=== PATIENT | male | born 1975 | race Caucasian/White ===

== ENCOUNTER 2023-04-15 09:59 | Inpatient (IN) ==
[2023-04-15] MEDS ORDERED: SODIUM CHLORIDE 0.9% 500 ML IV STA (10:14)
[2023-04-15 10:39] LABS: Hematocrit (blood only) 39.3 % (42.0-52.0); Hemoglobin 13.5 g/dl (14.0-18.0); Mean Corpuscular Hemoglobin 27.8 pg (25.0-34.0); Mean Corpuscular Hgb Conc 34.4 g/dL (32.0-36.0); Mean Corpuscular Volume 80.9 fL (80.0-100.0); Mean Platelet Volume 10.1 fL (9.4-12.4); Platelet Count 263 K/uL (130-400); RDW Coefficient of Variation 13.2 % (11.5-14.5); RDW Standard Deviation 38.6 fL (36.4-46.3); Red Blood Count 4.86 M/uL (4.70-6.10); White Blood Count 4.66 K/ul (4.8-10.8)
[2023-04-15 10:52] LABS: INR 1.1 (0.9-1.1); Partial Thromboplastin Ratio 0.9; Partial Thromboplastin Time 24.2 Seconds (21.0-31.0); Prothrombin Time 11.5 Seconds (9.0-12.0)
[2023-04-15 10:57] LABS: Albumin Level 3.8 gm/dl (3.4-5.0); Bilirubin,Total 1.6 mg/dl (0.2-1.0); Magnesium 1.5 mg/dl (1.7-2.4); Potassium 3.6 mmol/L (3.5-5.1)
--- NOTE | 2023-04-15 10:59 | XRay Report ---
XR chest 1V not portable HISTORY: Sepsis COMPARISON: None. FINDINGS: The lungs are clear. Cardiac silhouette is normal in size. No pleural effusions. No pneumot horax. IMPRESSION: No acute process. ACT 112: Negative or not required by law. Electronically signed by: Lance Meier M.D. 04/15/2023 10:57 AM
[2023-04-15] MEDS ORDERED: MAGNESIUM SULFATE / D5W 1 GM/100 ML BAG IV STA (11:00)
[2023-04-15] MEDS ORDERED: SODIUM CHLORIDE 0.9% 1,000 ML IV ONE (11:00)
[2023-04-15 11:03] LABS: Albumin Globulin Ratio 1.4 (0.9-2); BUN Creatinine Ratio 17.1 (10-20); Creatinine Clr Calc Pharmacy 111.3 ml/min; Est GFR (African American) 119.5 ml/min; Est GFR (Non-African American) 103.1 ml/min; Globulin 2.8 gm/dl (2.5-4.0); Total Protein 6.6 gm/dl (6.0-8.3)
--- NOTE | 2023-04-15 11:08 | Emergency Department Note ---
Impression & Plan Acute ischemic colitis, Acute diverticulitis, Pulmonary emboli, Infarctions, pulmonary ED Provider Note HISTORY OF PRESENT ILLNESS: Patient is a 48-year-old male presenting with fevers, nausea and vomiting. He has been unable to tolerate anything by mouth for the last 3 days. He reports anytime he tries to eat or drink anything he immediately vomits. Denies any chest pain or shortness of breath. Reports fevers up to 102 at home. He had active rigors this morning. Denies any recent sick contact exposure. Denies any abdominal pain. Denies any history of abdominal surgeries. He reports he tried to take Tylenol earlier today for his fever but he immediately vomited. Denies any dysuria or hematuria. 2 weeks ago the patient had ankle surgery. ROS: as above PHYSICAL EXAM: Constitutional: Patient appears in no acute distress. HENT: Head: Normocephalic and atraumatic. Eyes: EOMI, PERRL Mouth/Throat: Mucous membranes moist. Neck: Trachea midline. Neck supple. Cardiovascular: Tachycardic with regular rhythm. No murmurs, rubs or gallops. Intact distal pulses. Pulmonary/Chest: No respiratory distress. Breath sounds clear and equal bilaterally. No wheezes or rales. Abdominal: Abdomen soft, no tenderness, rebound or guarding. Musculoskeletal: patient has a posterior short leg splint on the right lower extremity. Skin: Warm and dry. No rash, erythema, pallor or cyanosis Psychiatric: Appropriate mood and affect for situation. Neurological: Alert and keenly responsive. CN II-XII grossly intact, moving all extremities equally and fully. MDM: - Vitals signs showed tachycardia. - History obtained via patient. Patient presents with fevers, nausea and vomiting. Patient reports has been unable to tolerate oral intake for the last 72 hours. He reports anytime he tries to eat or drink anything it immediately comes up. He denies any chest pain or shortness of breath. Reports fevers up to 102 at home. Reports he had active rigors this morning. He reports he had ankle surgery 2 weeks ago - Chronic conditions affecting care: None - Differential diagnoses include, but are not limited to: diverticulitis; isch emic colitis; ureteral calculi; viral syndrome - Order placed for continuous cardiac monitoring. At this time, monitor showed rate of 100 bpm with normal sinus rhythm, per my interpretation. - External medical records reviewed. - EKG reviewed by myself showed normal sinus rhythm. Rate tachycardic at 157 bpm. QTc 530. No acute ischemic changes - Laboratory workup interpreted by myself showed slight leukopenia (WBC 4.66); slight hyponatremia (Na 134); elevated anion gap (14); hypomagnesemia (Mg 1.5); elevated total bilirubin (1.6); elevated procalcitonin (0.68); normal lactate - Negative lyme testing - UA negative for infection. - CXR negative for pneumonia, per my interpretation - COVID/flu/RSV negative - CT abdomen/pelvis with IV contrast showed thickened sigmoid colon with associated microperforation multiple inflamed diverticular. Also noted to have evidence of ischemic colitis of the sigmoid colon with portal venous gas identified. Also noted to have small PEs within the right lower lobe and peripheral wedge-shaped density is concerning for pulmonary infarcts on the left. - Blood cultures obtained per triage protocols. - Patient given 2L NS in ER. Given 1g IV magnesium for electrolyte replacement. - Given IV zosyn for antibiotic coverage. - Discussed case with general surgery on-call. They plan to evaluate the patient. Requested admission to medicine service. - Heparin drip ordered, given patient's profound clot burden (PEs and ischemic colitis). - Discussion was had with social work faculty member about patient's case and need for admission - Hospitalist consulted for admission - Patient admitted to [facility] service for further evaluation and management. I provided 42 minutes of critical care time to this patient's care outside of billable procedures. ASSESSMENT AND PLAN: Diagnosis: Ischemic colitis; pulmonary emboli; pulmonary infarct; intractable nausea and vomiting; acute diverticulitis Plan: admit Past Med/Surg History Medical History Deficient knowledge of leg surgery Family History Mother Breast cancer Grandmother (Maternal) Myocardial infarction Denies family history of Ovarian cancer Prostate cancer Colorectal cancer Social History Smoking Status: Never smoker Preferred Language: Bahamian Visual Impairment: No Limitations Hearing Ability: Normal Feels Safe at Home: Yes Allergies Allergies Allergy/AdvReac Type Severity Reaction Status Date / Time No Known Allergies Allergy Unverified 01/12/20 15:30 Home Meds Home Medications Medication Instructions Recorded Confirmed losartan 50 mg tablet 50 mg PO DAILY 01/12/20 04/15/23 simvastatin 40 mg tablet 40 mg PO DAILY 01/12/20 04/15/23 oxycodone-acetaminophen 5 mg-325 1 tab PO USEASDIRECTD PRN Pain 04/15/23 04/15/23 mg tablet Results & Data (ED) Vital Signs Vital Signs - 24 hr 04/15/23 09:59 04/15/23 11:12 04/15/23 11:47 Temperature 36.5 C Temperature Source Temporal Artery Scan Pulse Rate 155 H Pulse Rate [Left Apical] 114 H Respiratory Rate 16 25 H Respiratory Effort / Characteristics Respiratory Depth Respiratory Pattern Blood Pressure 95/62 L Blood Pressure [Right Arm] 117/69 Blood Pressure Mean 73 Blood Pressure Mean [Right Arm] 85 Pulse Oximetry 95 93 Oxygen Delivery Method Room Air Room Air Sepsis New/Unexplained Change in Mental Status N/A Sepsis Action Taken by Nursing Physician Notified 04/15/23 11:47 04/15/23 13:05 04/15/23 14:39 Temperature Temperature Source Pulse Rate Pulse Rate [Left Apical] 108 H 104 H Respiratory Rate 18 18 Respiratory Effort / Characteristics Non-Labored Non-Labored Respiratory Depth Normal Normal Respiratory Pattern Regular Blood Pressure Blood Pressure [Right Arm] 110/76 103/74 Blood Pressure Mean Blood Pressure Mean [Right Arm] 87 83 Pulse Oximetry 95 95 98 Oxygen Delivery Method Room Air Room Air Room Air Sepsis New/Unexplained Change in Mental Status Sepsis Action Taken by Nursing Laboratory Data 04/15/23 10:24 04/15/23 10:24 Lab Results 04/15/23 04/15/23 04/15/23 Range/Units 10:24 10:24 10:24 WBC 4.66 L (4.8-10.8) K/ul RBC 4.86 (4.70-6.10) M/uL Hgb 13.5 L (14.0-18.0) g/dl Hct 39.3 L (42.0-52.0) % MCV 80.9 (80.0-100.0) fL MCH 27.8 (25.0-34.0) pg MCHC 34.4 (32.0-36.0) g/dL RDW Std Deviation 38.6 (36.4-46.3) fL RDW Coeff of Angelo 13.2 (11.5-14.5) % Plt Count 263 (130-400) K/uL MPV 10.1 (9.4-12.4) fL Immature Gran % (Auto) 0.4 % Neut % (Auto) 93.2 % Lymph % (Auto) 5.6 % [place] % (Auto) 0.2 % Eos % (Auto) 0.2 % Baso % (Auto) 0.4 % Neut # (Auto) 4.34 (1.40-6.50) K/uL Lymph # (Auto) 0.26 L (1.20-3.40) K/uL [place] # (Auto) 0.01 L (0.11-0.59) K/uL Eos # (Auto) 0.01 (0.00-0.50) K/uL Baso # (Auto) 0.02 (0.00-0.20) K/uL Immature Gran # (Auto) 0.02 (0.01-0.20) K/uL RBC Morphology Unremarkable PT 11.5 (9.0-12.0) Seconds INR 1.1 (0.9-1.1) APTT 24.2 (21.0-31.0) Seconds PTT Ratio 0.9 Sodium (136-145) mmol/L Potassium (3.5-5.1) mmol/L Chloride (98-107) mmol/L Carbon Dioxide (21-32) mmol/L Anion Gap (3-11) BUN (6-23) mg/dl Creatinine (0.6-1.4) mg/dl Est Cr Clr Drug Dosing ml/min Est GFR ( Amer) ml/min Est GFR (Non-Af Amer) ml/min BUN/Creatinine Ratio (10-20) Glucose (70-99(Fasting)) mg/dl Lactate 1.5 (0.4-2.0) mmol/L Calcium (8.6-10.3) mg/dl Magnesium (1.7-2.4) mg/dl Total Bilirubin (0.2-1.0) mg/dl AST (13-39) U/L ALT (7-52) U/L Alkaline Phosphatase (34-104) U/L Troponin I High Sens (0-20) pg/ml Total Protein (6.0-8.3) gm/dl Albumin (3.4-5.0) gm/dl Globulin (2.5-4.0) gm/dl Albumin/Globulin Ratio (0.9-2) Procalcitonin (0-0.5) ng/ml Urine Color Urine Appearance (Clear) Urine pH (4.5-7.5) Ur Specific Page (1.000-1.030) Urine Protein (Negative) Urine Glucose (UA) (Negative) Urine Ketones (Negative) Urine Blood (Negative) Urine Nitrite (Negative) Urine Bilirubin (Negative) Urine Urobilinogen (Negative) Ur Leukocyte Esterase (Negative) Urine WBC (Auto) (0-5) /hpf Urine RBC (Auto) (0-4) /hpf U Hyaline Cast (Auto) (0-5) /lpf U Epithel Cells (Auto) (0-5) /lpf Urine Bacteria (Auto) (Negative) Anaplasma Smear See Comment Lyme Disease IgG Ab (Negative) Lyme Disease IgM Ab (Negative) SARS-CoV-2 (PCR) (Negative) Influenza Type A (PCR) (Neg) Influenza Type B (PCR) (Neg) RSV (RT-PCR) (Neg) 04/15/23 04/15/23 04/15/23 Range/Units 10:24 10:24 10:24 WBC (4.8-10.8) K/ul RBC (4.70-6.10) M/uL Hgb (14.0-18.0) g/dl Hct (42.0-52.0) % MCV (80.0-100.0) fL MCH (25.0-34.0) pg MCHC (32.0-36.0) g/dL RDW Std Deviation (36.4-46.3) fL RDW Coeff of Angelo (11.5-14.5) % Plt Count (130-400) K/uL MPV (9.4-12.4) fL Immature Gran % (Auto) % Neut % (Auto) % Lymph % (Auto) % [place] % (Auto) % Eos % (Auto) % Baso % (Auto) % Neut # (Auto) (1.40-6.50) K/uL Lymph # (Auto) (1.20-3.40) K/uL [place] # (Auto) (0.11-0.59) K/uL Eos # (Auto) (0.00-0.50) K/uL Baso # (Auto) (0.00-0.20) K/uL Immature Gran # (Auto) (0.01-0.20) K/uL RBC Morphology PT (9.0-12.0) Seconds INR (0.9-1.1) APTT (21.0-31.0) Seconds PTT Ratio Sodium 134 L (136-145) mmol/L Potassium 3.6 (3.5-5.1) mmol/L Chloride 100 (98-107) mmol/L Carbon Dioxide 20 L (21-32) mmol/L Anion Gap 14 H (3-11) BUN 14 (6-23) mg/dl Creatinine 0.82 (0.6-1.4) mg/dl Est Cr Clr Drug Dosing 111.3 ml/min Est GFR ( Amer) 119.5 ml/min Est GFR (Non-Af Amer) 103.1 ml/min BUN/Creatinine Ratio 17.1 (10-20) Glucose 142 H (70-99(Fasting)) mg/dl Lactate (0.4-2.0) mmol/L Calcium 9.0 (8.6-10.3) mg/dl Magnesium 1.5 L (1.7-2.4) mg/dl Total Bilirubin 1.6 H (0.2-1.0) mg/dl AST 16 (13-39) U/L ALT 29 (7-52) U/L Alkaline Phosphatase 67 (34-104) U/L Troponin I High Sens 3.3 (0-20) pg/ml Total Protein 6.6 (6.0-8.3) gm/dl Albumin 3.8 (3.4-5.0) gm/dl Globulin 2.8 (2.5-4.0) gm/dl Albumin/Globulin Ratio 1.4 (0.9-2) Procalcitonin 0.68 H (0-0.5) ng/ml Urine Color Urine Appearance (Clear) Urine pH (4.5-7.5) Ur Specific Page (1.000-1.030) Urine Protein (Negative) Urine Glucose (UA) (Negative) Urine Ketones (Negative) Urine Blood (Negative) Urine Nitrite (Negative) Urine Bilirubin (Negative) Urine Urobilinogen (Negative) Ur Leukocyte Esterase (Negative) Urine WBC (Auto) (0-5) /hpf Urine RBC (Auto) (0-4) /hpf U Hyaline Cast (Auto) (0-5) /lpf U Epithel Cells (Auto) (0-5) /lpf Urine Bacteria (Auto) (Negative) Anaplasma Smear Lyme Disease IgG Ab (Negative) Lyme Disease IgM Ab (Negative) SARS-CoV-2 (PCR) NEGATIVE (Negative) Influenza Type A (PCR) Negative (Neg) Influenza Type B (PCR) Negative (Neg) RSV (RT-PCR) Negative (Neg) 04/15/23 04/15/23 Range/Units 10:24 14:36 WBC (4.8-10.8) K/ul RBC (4.70-6.10) M/uL Hgb (14.0-18.0) g/dl Hct (42.0-52.0) % MCV (80.0-100.0) fL MCH (25.0-34.0) pg MCHC (32.0-36.0) g/dL RDW Std Deviation (36.4-46.3) fL RDW Coeff of Angelo (11.5-14.5) % Plt Count (130-400) K/uL MPV (9.4-12.4) fL Immature Gran % (Auto) % Neut % (Auto) % Lymph % (Auto) % [place] % (Auto) % Eos % (Auto) % Baso % (Auto) % Neut # (Auto) (1.40-6.50) K/uL Lymph # (Auto) (1.20-3.40) K/uL [place] # (Auto) (0.11-0.59) K/uL Eos # (Auto) (0.00-0.50) K/uL Baso # (Auto) (0.00-0.20) K/uL Immature Gran # (Auto) (0.01-0.20) K/uL RBC Morphology PT (9.0-12.0) Seconds INR (0.9-1.1) APTT (21.0-31.0) Seconds PTT Ratio Sodium (136-145) mmol/L Potassium (3.5-5.1) mmol/L Chloride (98-107) mmol/L Carbon Dioxide (21-32) mmol/L Anion Gap (3-11) BUN (6-23) mg/dl Creatinine (0.6-1.4) mg/dl Est Cr Clr Drug Dosing ml/min Est GFR ( Amer) ml/min Est GFR (Non-Af Amer) ml/min BUN/Creatinine Ratio (10-20) Glucose (70-99(Fasting)) mg/dl Lactate (0.4-2.0) mmol/L Calcium (8.6-10.3) mg/dl Magnesium (1.7-2.4) mg/dl Total Bilirubin (0.2-1.0) mg/dl AST (13-39) U/L ALT (7-52) U/L Alkaline Phosphatase (34-104) U/L Troponin I High Sens (0-20) pg/ml Total Protein (6.0-8.3) gm/dl Albumin (3.4-5.0) gm/dl Globulin (2.5-4.0) gm/dl Albumin/Globulin Ratio (0.9-2) Procalcitonin (0-0.5) ng/ml Urine Color [place] Urine Appearance Cloudy A (Clear) Urine pH 5.5 (4.5-7.5) Ur Specific Page 1.015 (1.000-1.030) Urine Protein Trace H (Negative) Urine Glucose (UA) Negative (Negative) Urine Ketones 3+ H (Negative) Urine Blood Negative (Negative) Urine Nitrite Negative (Negative) Urine Bilirubin 1+ H (Negative) Urine Urobilinogen Positive H (Negative) Ur Leukocyte Esterase Negative (Negative) Urine WBC (Auto) 1-5 (0-5) /hpf Urine RBC (Auto) 0-4 (0-4) /hpf U Hyaline Cast (Auto) 5-10 H (0-5) /lpf U Epithel Cells (Auto) 0-5 (0-5) /lpf Urine Bacteria (Auto) Negative (Negative) Anaplasma Smear Lyme Disease IgG Ab Negative (Negative) Lyme Disease IgM Ab Negative (Negative) SARS-CoV-2 (PCR) (Negative) Influenza Type A (PCR) (Neg) Influenza Type B (PCR) (Neg) RSV (RT-PCR) (Neg) Administered Medications Discontinued Medications Sodium Chloride (Nss) 500 mls @ 999 mls/hr IV .Q31M STA Stop: 04/15/23 10:44 Last Infusion: 04/15/23 11:19 Dose: 0 mls/hr Documented By: Admin: 04/15/23 10:23 Dose: 999 mls/hr Documented By: WILL Sodium Chloride (Nss 1000ml) 1,000 mls @ 999 mls/hr IV .Q1H1M ONE Stop: 04/15/23 12:00 Last Infusion: 04/15/23 12:30 Dose: 0 mls/hr Documented By: Admin: 04/15/23 11:13 Dose: 999 mls/hr Documented By: XI Magnesium Sulfate/Dextrose (Magnesium Sulfate / D5w) 1 gm in 100 mls @ 100 mls/hr IV NOW STA Stop: 04/15/23 11:59 Last Infusion: 04/15/23 12:30 Dose: 0 mls/hr Documented By: Admin: 04/15/23 11:13 Dose: 100 mls/hr Documented By: XI Ioversol (Optiray 320 100ml) 89 ml IV ONCE ONE Stop: 04/15/23 13:25 Last Admin: 04/15/23 13:25 Dose: 89 ml Documented By: MATT Imaging Data Radiologist's Impression: Chest X-Ray 04/15/23 10:14 XR chest 1V not portable HISTORY: Sepsis COMPARISON: None. FINDINGS: The lungs are clear. Cardiac silhouette is normal in size. No pleural effusions. No pneumothorax. IMPRESSION: No acute process. ACT 112: Negative or not required by law. Electronically signed by: Lance Meier M.D. 04/15/2023 10:57 AM Abdomen/Pelvis CT 04/15/23 11:[address] WITH IV CONTRAST CT DOSE: 1157.91 mGy.cm HISTORY: Persistent nausea and vomiting. TECHNIQUE: Multiaxial CT images of the abdomen and pelvis were performed following the use of intravenous contrast. A dose lowering technique was utilized adhering to the principles of ALARA. COMPARISON STUDY: None. FINDINGS: A few punctate calcified granuloma seen within the lung bases. Small filling defect within the subsegmental branch of the right lower lobe pulmonary artery on image 30. Therefore, this likely represents a small pulmonary embolus. There are 2 small focal wedge-shaped density seen within the periphery of the left lower lobe the largest on image 58 measuring 2 cm. These may represent pulmonary infarcts. Scattered punctate sclerotic foci within the pelvic bones favor bone islands. Otherwise, no suspicious lytic or blastic osseous lesions. Mild hepatic steatosis. The main portal vein is patent. However, a few of the distal portal veins within the right hepatic lobe are thrombosed. In addition, there are scattered foci of portal venous gas identified within the right hepatic dome. The spleen, pancreas, adrenal glands, kidneys are unremarkable. No hydronephrosis. Normal caliber abdominal aorta with mild calcified plaque. The bladder is unremarkable. The prostate gland is mildly enlarged. There is focal thickening within the mid sigmoid colon with multiple diverticula. There is a large inflamed diverticulum with evidence for extraluminal gas consistent with microperforation and pericolonic fat stranding. No loculated fluid collections at this time to suggest an abscess. There are few small scattered foci of gas at the distal inferior mesenteric vein adjacent to the inflamed diverticulum/sigmoid colon. In addition, there is heterogeneous enhancement within the majority of the inferior mesenteric vein consistent with areas of thrombus. Therefore, in conjunction with the portal venous gas, these findings are concerning for an underlying ischemic colitis of the sigmoid colon. No dilated loops of bowel to suggest an obstruction. Normal appendix. IMPRESSION: 1. There is thickening of the sigmoid colon with associated microperforation and multiple inflamed diverticula. This has the appearance of an acute sigmoid diverticulitis. However, there is partial thrombosis of the majority of the inferior mesenteric vein with associated scattered foci of gas at the distal inferior mesenteric vein as well as portal venous gas identified in the right hepatic dome. Therefore, these findings are consistent with an ischemic colitis of the sigmoid colon. 2. There are few thrombosed distal branches of the right portal vein. 3. There is a small pulmonary embolus within the right lower lobe. There are 2 small peripheral wedge-shaped densities within the periphery of the left lower lobe likely representing pulmonary infarcts. 4. Additional findings as described above. ACT 112: Negative or not required by law. Electronically signed by: Lance Meier M.D. 04/15/2023 2:44 PM Discharge Plan Visit Data Chief Complaint: Dehydration Stated Complaint: FEVER, DEHYDRATED ED Provider: Rosa Maria Tovar Discharge Problem: Acute ischemic colitis, Acute diverticulitis, Pulmonary emboli, Infarctions, pulmonary Forms Stand Alone Forms: My [facility] Prescriptions Prescriptions: No Action losartan 50 mg tablet 50 mg PO DAILY simvastatin 40 mg tablet 40 mg PO DAILY oxycodone-acetaminophen 5-325 mg tablet 1 tab PO USEASDIRECTD PRN (Reason: Pain) Rx Instructions: q4-6 hours Referrals Referrals: Gala Sorensen MD [Primary Care Provider] -
[2023-04-15 11:09] LABS: Troponin I High Sensitivity 3.3 pg/ml (0-20)
[2023-04-15 11:22] LABS: Influenza A virus by PCR Negative (Neg); Influenza B virus by PCR Negative (Neg); RSV by PCR Negative (Neg); SARS CoV2 RNA(COVID-19) Ceph NEGATIVE (Negative)
[2023-04-15 11:41] LABS: Basophils # (auto) 0.02 K/uL (0.00-0.20); Basophils % (auto) 0.4 %; Eosinophils # (auto) 0.01 K/uL (0.00-0.50); Eosinophils % (auto) 0.2 %; Immature Granulocytes # (auto) 0.02 K/uL (0.01-0.20); Immature Granulocytes % (auto) 0.4 %; Lymphocytes # (auto) 0.26 K/uL (1.20-3.40); Lymphocytes % (auto) 5.6 %; Monocytes # (auto) 0.01 K/uL (0.11-0.59); Monocytes % (auto) 0.2 %; Neutrophils # (auto) 4.34 K/uL (1.40-6.50); Neutrophils % (auto) 93.2 %; RBC Morphology Unremarkable
[2023-04-15] MEDS ORDERED: OPTIRAY 320 100ml IV ONE (13:24)
[2023-04-15 13:44] LABS: Lyme Ab IgG w/WB Rflx Negative (Negative); Lyme Ab IgM w/WB Rflx Negative (Negative)
[2023-04-15] MEDS ORDERED: CEFEPIME 2,000 MG/20 ML VIAL IV STA (14:43)
--- NOTE | 2023-04-15 14:46 | CT Scan Report ---
ABDOMEN AND PELVIS CT WITH IV CONTRAST CT DOSE: 1157.91 mGy.cm HISTORY: Persistent nausea and vomiting. TECHNIQUE: Multiaxial CT images of the abdomen and pelvis were performed following the use of intrave nous contrast. A dose lowering technique was utilized adhering to the principles of ALARA. COMPARISON STUDY: None. FINDINGS: A few punctate calcified granuloma seen within the lung bases. Small filling defect within the subsegmental branch of the right lower lobe pulmonary artery on image 30. Therefore, this likely represents a small pulmonary embolus. There are 2 small focal wedge-shaped density seen within the pe riphery of the left lower lobe the largest on image 58 measuring 2 cm. These may represent pulmonary infarcts. Scattered punctate sclerotic foci within the pelvic bones favor bone islands. Otherwise, no suspicious lytic or blastic osseous lesions. Mild hepatic steatosis. The main portal vein is patent. However, a few of the distal portal veins within the right hepatic lobe are thrombosed. In addition, there are scattered foci of portal venous gas identified within the right hepatic dome. The spleen, pancreas, adrenal glands, kidneys are unremarkable. No hydronephrosis. Normal caliber abdominal aorta with mild calcified plaque. The bladder is unremarkable. The prostate gland is mildly enlarged. Ther e is focal thickening within the mid sigmoid colon with multiple diverticula. There is a large inflam ed diverticulum with evidence for extraluminal gas consistent with microperforation and pericolonic f at stranding. No loculated fluid collections at this time to suggest an abscess. There are few small scattered foci of gas at the distal inferior mesenteric vein adjacent to the inflamed diverticulum/si gmoid colon. In addition, there is heterogeneous enhancement within the majority of the inferior mese nteric vein consistent with areas of thrombus. Therefore, in conjunction with the portal venous gas, these findings are concerning for an underlying ischemic colitis of the sigmoid colon. No dilated loo ps of bowel to suggest an obstruction. Normal appendix. IMPRESSION: 1. There is thickening of the sigmoid colon with associated microperforation and multiple inflamed di verticula. This has the appearance of an acute sigmoid diverticulitis. However, there is partial thro mbosis of the majority of the inferior mesenteric vein with associated scattered foci of gas at the d istal inferior mesenteric vein as well as portal venous gas identified in the right hepatic dome. The refore, these findings are consistent with an ischemic colitis of the sigmoid colon. 2. There are few thrombosed distal branches of the right portal vein. 3. There is a small pulmonary embolus within the right lower lobe. There are 2 small peripheral wedge -shaped densities within the periphery of the left lower lobe likely representing pulmonary infarcts. 4. Additional findings as described above. ACT 112: Negative or not required by law. Electronically signed by: Lance Meier M.D. 04/15/2023 2:44 PM
[2023-04-15 14:47] LABS: Appearance Urine Cloudy (Clear); Bacteria Urine Automated Negative (Negative); Blood Urine Negative (Negative); Color Urine Orange; Epithelial Cell Urine Auto 0-5 /lpf (0-5); Glucose Urine UA Negative (Negative); Ketones Urine 3+ (Negative); Leukocyte Esterase Urine Negative (Negative); Nitrite Urine Negative (Negative); Protein Urine Trace (Negative); RBC Urine Automated 0-4 /hpf (0-4); Specific Gravity Urine 1.015 (1.000-1.030); Urobilinogen Urine Positive (Negative); pH Urine 5.5 (4.5-7.5)
[2023-04-15] MEDS ORDERED: PIPERACILLIN/TAZOBACTAM 4.5 GM/120 ML BAG IV ONE (14:50)
[2023-04-15 14:53] LABS: Bilirubin Urine 1+ (Negative)
[2023-04-15] MEDS ORDERED: Heparin IV Adult Wt-Based Standard *NO* Bolus Protocol IV ONE (15:11)
--- NOTE | 2023-04-15 15:19 | History & Physical Report ---
Date of Service April 15, 2023 Assessment & Plan (1) Acute diverticulitis: Plan: Diverticulitis, Ischemic Colitis, Mesenteric Vein Thrombosis/Portal Vein Thrombosis - Clinically patient is with minimal/no pain, abdomen is soft, and no guarding/rebound. - CT-A/P: 1. There is thickening of the sigmoid colon with associated microperforation and multiple inflamed diverticula. This has the appearance of an acute sigmoid diverticulitis. However, there is partial thrombosis of the majority of the inferior mesenteric vein with associated scattered foci of gas at the distal inferior mesenteric vein as well as portal venous gas identified in the right hepatic dome. Therefore, these findings are consistent with an ischemic colitis of the sigmoid colon. 2. There are few thrombosed distal branches of the right portal vein. 3. There is a small pulmonary embolus within the right lower lobe. There are 2 small peripheral wedge-shaped densities within the periphery of the left lower lobe likely representing pulmonary infarcts. 4. Additional findings as described above. - Lactate normal - No abdominal tenderness, no rebound guarding -Heparin GTT Likely provoked VTE in the setting of recent surgery. He denies prior history of VTE, no family history of blood clots. Does have a family history of diverticulosis/diverticulitis requiring colostomy, but no complications with blood clots. He uses chew tobacco. Has had increased A-CYS as he has been resting more since his right ankle surgery. We will treat as provoked VTE, however extent of clot is larger than expected. Recommend completion with hypercoagulability panel. If antiphospholipid antibodies are present can target conversion to warfarin, otherwise is a good DOAC candidate and would target Eliquis -3 to 6 months of anticoagulation, additional depending on clinical course and results of above testing Patient will need a colonoscopy 4 to 6 weeks after recovered from diverticulitis. Do not recommend in the setting of diverticulitis due to perforation risk. No family history of colorectal cancer, occult malignancy potential could be dear for hypercoagulability IVF at 125 cc/h Continue Zosyn PE - Anticoagulation as above No hypoxia No signs of hemodynamic instability Hypertension Normotensive on admission, losartan temporarily held while n.p.o. Hyperlipidemia With statin held while n.p.o. DVT prophylaxis: Anticoagulated Disposition: Medical telemetry, downgrade if stable for 24 hours CODE STATUS: Full code Diet: N.p.o., Plasma-Lyte 125 cc/h (2) Acute ischemic colitis: (3) Hypertension: (4) Closed trimalleolar fracture of ankle: History of Present Illness Primary Care Provider: Gala Sorensen MD Jose Alejandro Ibarra is a 48-year-old male with a past medical history of hypertension and hyperlipidemia presented with fevers, nausea, and vomiting and no p.o. intake for 72 hours. Fevers of 102 with rigors at home. Has not been able to keep down cuty-[id number] medications due to vomiting. Had surgery 2 weeks ago, had R ankle and foot screws place. Has been sitting at home for 2 weeks offloading after surgery No anticoagulation prior to today Fevers, chills, sweats last 2 days Since surgery has not been eating much. ~3 days of nausea/vomiting. Tylenol could not keep down. Pain meds could not keep down. Last night when throwing up, emesis was yellow liquid and bile. This morning oneal-kyra and dark green Nauseus and maybe a little pain before throwing up, but denies pain Went to the bathroom this morning. Had a BM but then got nauseus afterwards and vomited. No blood in BM. Has been takin ga stool softener due to being on pain medications History of colostomy in brother/father due to diverticulitis. No FHx of colorectal cancer. Medical History: Reviewed Medications: Reviewed. Has not taken losartan or simvastatin due to nausea/vomiting. Surgical History: Reviewed Family history: Reviewed Allergies: Reviewed Social History: Chew use 1 can/pouch per day. No cigarette use. Denies regular ETOH use. No recreational drug use. Code Status: Full Code Allergies Allergy/AdvReac Type Severity Reaction Status Date / Time No Known Allergies Allergy Unverified 01/12/20 15:30 Home Medications Medication Instructions Recorded Confirmed Type losartan 50 mg tablet 50 mg PO DAILY 01/12/20 04/15/23 History simvastatin 40 mg tablet 40 mg PO DAILY 01/12/20 04/15/23 History oxycodone-acetaminophen 5 mg-325 1 tab PO USEASDIRECTD PRN Pain 04/15/23 04/15/23 History mg tablet Past Med/Surg History Medical History Deficient knowledge of leg surgery Family History Mother Breast cancer Grandmother (Maternal) Myocardial infarction Denies family history of Ovarian cancer Prostate cancer Colorectal cancer Social History Smoking Status: Never smoker Preferred Language: Algerian Visual Impairment: No Limitations Hearing Ability: Normal Feels Safe at Home: Yes Physical Exam Physical Exam: General: A&Ox3. NAD. Cooperative. HEENT: Atraumatic, normocephalic. Vision/hearing intact Pulm: CTAB A&P. -wheezes, -rales, -rhonchi. Symmetrical chest rise. No increased work of breathing. No respiratory distress. Cardiac: RRR, -mrg. Radial pulses intact and symmetrical. Abdominal: Minimal tenderness, without rebound, nondistended, soft. BS present. Extremities: Right lower extremity in short leg splint, no proximal right lower extremity tenderness or calf tenderness. Results & Data Results & Data Vital Signs (Past 12 Hours) Vital Signs Temp Pulse Pulse Resp BP BP Pulse Ox 04/15/23 14:39 104 H 18 103/74 98 04/15/23 13:05 108 H 18 110/76 95 04/15/23 11:47 95 04/15/23 11:47 04/15/23 11:12 114 H 25 H 117/69 93 04/15/23 09:59 36.5 C 155 H 16 95/62 L 95 O2 Del Method 04/15/23 14:39 Room Air 04/15/23 13:05 Room Air 04/15/23 11:47 Room Air 04/15/23 11:47 Room Air 04/15/23 11:12 Room Air 04/15/23 09:59 PG Care Time/CCT Total # of Minutes Spent Total Time Spent with Patient: Total time spent is greater than 50% in coordination of care (as documented) at patient's floor/unit and/or counseling patient: Coding Level of Care Code 12772 INT INP/OBS CARE 75MIN Diagnoses Acute diverticulitis K57.92 Acute ischemic colitis K55.039 Hypertension I10 Closed trimalleolar fracture of ankle S82.853A
[2023-04-15] MEDS ORDERED: Heparin IV Adult Wt-Based Standard WITH Bolus Protocol IV STA (16:11)
[2023-04-15] MEDS ORDERED: HEPARIN SOD (PORCINE) 1000 UNIT/ML IV STA (16:17)
--- NOTE | 2023-04-15 16:44 | Surgery Consultation ---
I have seen and examined and seen this patient with the surgical PA. I agree with the plan Date of Consultation April 15, 2023 Assessment & Plan (1) Acute diverticulitis: This is a 48yM with a PMH of HTN, recent repair of R ankle fracture 2 weeks ago, who presents to the [facility] ED on 04/15/23 with complaints of nausea/vomiting over the last couple of days that worsened today. Due to concern for dehydration he presented to the ER. A CT a/p was obtained that revealed thickening of the sigmoid colon with associated microperforation and multiple inflamed diverticula. This has the appearance of an acute sigmoid diverticulitis. However, there is partial thrombosis of the majority of the inferior mesenteric vein with associated scattered foci of gas at the distal inferior mesenteric vein as well as portal venous gas identified in the right hepatic dome, which are consistent with an ischemic colitis of the sigmoid colon. He also has some thrombosed distal branches of the right portal vein and PE in the RLL of the lung. Labs reveal WBC 4.6, Hbg 13.5, K 3.6, Lactate 1.5, Cr. 0.8. Vitals show patient is tachycardic into the 100s. He is saturating well on room air. On exam patient appears comfortable- abdomen is soft, non distended, with possible mild LLQ discomfort to deep palpation. Given essentially benign abdomen would agree with hospitalization and a course of conservative measures. Would hydrate with IVF, keep NPO for bowel rest, and start IV abx for possible diverticular infection. In addition the hospitalists will start patient on a heparin gtt given findings of PE's and thrombus in the IMV and portal vein. We will follow along closely, but no indication for acute surgical intervention. (2) Acute ischemic colitis: (3) Pulmonary emboli: History of Present Illness History of Present Illness This is a 48yM with a PMH of HTN, recent repair of R ankle fracture 2 weeks ago, who presents to the [facility] ED on 04/15/23 with complaints of nausea/vomiting. Per patient he had a fever 2 saturday's ago (after ankle surgery) that resolved. Since then he has had low appetite, but able to eat until yesterday he developed nausea/vomiting that lasted all day. He was unable to keep anything down including his pills. Due to concern for dehydration he presented to the ER. A CT a/p was obtained that revealed thickening of the sigmoid colon with associated microperforation and multiple inflamed diverticula. This has the appearance of an acute sigmoid diverticulitis. However, there is partial thrombosis of the majority of the inferior mesenteric vein with associated scattered foci of gas at the distal inferior mesenteric vein as well as portal venous gas identified in the right hepatic dome, which are consistent with an ischemic colitis of the sigmoid colon. He also has some thrombosed distal branches of the right portal vein and PE in the RLL of the lung. The patient denies any abdominal pain [id number]. He had a BM this AM that was normal and non bloody. He denies f/c, chest pains, shortness of breath, diarrhea. No family history of blood clots. Says his father and brother both had issues with diverticulitis requiring colostomy. He never had a colonoscopy. Also denies any personal or family history of blood clots. Allergies Allergy/AdvReac Type Severity Reaction Status Date / Time No Known Allergies Allergy Unverified 01/12/20 15:30 Home Medications Medication Instructions Recorded Confirmed Type losartan 50 mg tablet 50 mg PO DAILY 01/12/20 04/15/23 History simvastatin 40 mg tablet 40 mg PO DAILY 01/12/20 04/15/23 History oxycodone-acetaminophen 5 mg-325 1 tab PO USEASDIRECTD PRN Pain 04/15/23 04/15/23 History mg tablet Patient History Medical History Deficient knowledge of leg surgery Family History Mother Breast cancer Grandmother (Maternal) Myocardial infarction Denies family history of Ovarian cancer Prostate cancer Colorectal cancer Social History Smoking Status: Never smoker Preferred Language: Turkmen Visual Impairment: No Limitations Hearing Ability: Normal Feels Safe at Home: Yes Review of Systems Constitutional: + anorexia; no fever and no chills Respiratory: no dyspnea Cardiovascular: no chest pain Gastrointestinal: + nausea and + vomiting; no abdominal pain, no bloating, no change in bowel habits and no blood in stools Physical Exam Physical Exam: awake/alert, no distress Respiratory: normal respiratory effort saturating well on room air Cardiovascular: Rate/Rhythm: + tachycardic Gastrointestinal (Abdomen): Inspection/Auscultation: abdomen not distended Percussion/Palpation: + abdomen tender (very mild LLQ discomfort ) and abdomen soft Musculoskeletal: R lower leg in arturo bandage/splint Results & Data Vital Signs (Past 12 Hours) Vital Signs Temp Pulse Pulse Resp BP BP Pulse Ox 04/15/23 15:53 108 H 24 119/72 94 04/15/23 14:39 104 H 18 103/74 98 04/15/23 13:05 108 H 18 110/76 95 04/15/23 11:47 95 04/15/23 11:47 04/15/23 11:12 114 H 25 H 117/69 93 04/15/23 09:59 36.5 C 155 H 16 95/62 L 95 O2 Del Method 04/15/23 15:53 Room Air 04/15/23 14:39 Room Air 04/15/23 13:05 Room Air 04/15/23 11:47 Room Air 04/15/23 11:47 Room Air 04/15/23 11:12 Room Air 04/15/23 09:59 Diagnostic Findings ABDOMEN AND PELVIS CT WITH IV CONTRAST CT DOSE: 1157.91 mGy.cm HISTORY: Persistent nausea and vomiting. TECHNIQUE: Multiaxial CT images of the abdomen and pelvis were performed following the use of intravenous contrast. A dose lowering technique was utilized adhering to the principles of ALARA. COMPARISON STUDY: None. FINDINGS: A few punctate calcified granuloma seen within the lung bases. Small filling defect within the subsegmental branch of the right lower lobe pulmonary artery on image 30. Therefore, this likely represents a small pulmonary embolus. There are 2 small focal wedge-shaped density seen within the periphery of the left lower lobe the largest on image 58 measuring 2 cm. These may represent pulmonary infarcts. Scattered punctate sclerotic foci within the pelvic bones favor bone islands. Otherwise, no suspicious lytic or blastic osseous lesions. Mild hepatic steatosis. The main portal vein is patent. However, a few of the distal portal veins within the right hepatic lobe are thrombosed. In addition, there are scattered foci of portal venous gas identified within the right hepatic dome. The spleen, pancreas, adrenal glands, kidneys are unremarkable. No hydronephrosis. Normal caliber abdominal aorta with mild calcified plaque. The bladder is unremarkable. The prostate gland is mildly enlarged. There is focal thickening within the mid sigmoid colon with multiple diverticula. There is a large inflamed diverticulum with evidence for extraluminal gas consistent with microperforation and pericolonic fat stranding. No loculated fluid collections at this time to suggest an abscess. There are few small scattered foci of gas at the distal inferior mesenteric vein adjacent to the inflamed diverticulum/sigmoid colon. In addition, there is heterogeneous enhancement within the majority of the inferior mesenteric vein consistent with areas of thrombus. Therefore, in conjunction with the portal venous gas, these findings are concerning for an underlying ischemic colitis of the sigmoid colon. No dilated loops of bowel to suggest an obstruction. Normal appendix. IMPRESSION: 1. There is thickening of the sigmoid colon with associated microperforation and multiple inflamed diverticula. This has the appearance of an acute sigmoid diverticulitis. However, there is partial thrombosis of the majority of the inferior mesenteric vein with associated scattered foci of gas at the distal inferior mesenteric vein as well as portal venous gas identified in the right hepatic dome. Therefore, these findings are consistent with an ischemic colitis of the sigmoid colon. 2. There are few thrombosed distal branches of the right portal vein. 3. There is a small pulmonary embolus within the right lower lobe. There are 2 small peripheral wedge-shaped densities within the periphery of the left lower lobe likely representing pulmonary infarcts. 4. Additional findings as described above. ACT 112: Negative or not required by law. Electronically signed by: Lance Meier M.D. 04/15/2023 2:44 PM PG Care Time/CCT Total # of Minutes Spent Total Time Spent with Patient: Total time spent is greater than 50% in coordination of care (as documented) at patient's floor/unit and/or counseling patient: Coding Level of Care Code 00628 OFFICE CONSULT LVL Diagnoses Acute diverticulitis K57.92 Acute ischemic colitis K55.039 Pulmonary emboli I26.99
[2023-04-15] MEDS: HEPARIN SODIUM/DEXTROSE 25,000 UNITS/500 ML BAG IV SCH (16:54)
[2023-04-15] MEDS: PLASMA-LYTE A 1,000 ML IV SCH (17:51)
[2023-04-15] MEDS: ONDANSETRON INJ 2 MG/ML 2 ML VIAL IV PRN (21:43)
[2023-04-15] MEDS: ACETAMINOPHEN 325 MG TAB PO PRN (21:58)
[2023-04-15 23:56] LABS: Partial Thromboplastin Ratio 1.4
[2023-04-16 01:43] LABS: A calco-baum cmplx NotReported Not Detected (NotDetected); Bact fragilis Not Reported Not Detected (NotDetected); C auris Not Reported Not Detected (NotDetected); CTX-M Resistant Gene Not Detected (NotDetected); Calbicans Not Reported Not Detected (NotDetected); Candida glabrata Not Reported Not Detected (NotDetected); Candida krusei Not Reported Not Detected (NotDetected); Cneoformans/gatti Not Reported Not Detected (NotDetected); Cparapsilosis Not Reported Not Detected (NotDetected); Ctropicalis Not Reported Not Detected (NotDetected); E cloacae compx Not Reported Not Detected (NotDetected); Efaecalis Not Reported Not Detected (NotDetected); Efaecium Not Reported Not Detected (NotDetected); Enterobacterales DETECTED (NotDetected); Enterobacterales Not Reported DETECTED (NotDetected); Escherichia coli Not Reported DETECTED (NotDetected); H influenzae Not Reported Not Detected (NotDetected); IMP Resistant Gene Not Detected (NotDetected); K aerogenes Not Reported Not Detected (NotDetected); KPC Resistant Gene Not Detected (NotDetected); Koxytoca Not Reported Not Detected (NotDetected); Kpneumoniae grp Not Reported Not Detected (NotDetected); Lmonocyt Not Reported Not Detected (NotDetected); N meningitidis Not Reported Not Detected (NotDetected); NDM Resistant Gene Not Detected (NotDetected); OXA 48 Like Resistant Gene Not Detected (NotDetected); P aeruginosa Not Reported Not Detected (NotDetected); Proteus spp Not Reported Not Detected (NotDetected); Salmonella spp Not Reported Not Detected (NotDetected); Smarcescens Not Reported Not Detected (NotDetected); Staph lugdunensis Not Reported Not Detected (NotDetected); Staph spp. Not Reported Not Detected (NotDetected); Staphaureus Not Reported Not Detected (NotDetected); Staphepi Not Reported Not Detected (NotDetected); Stenmaltophilia Not Reported Not Detected (NotDetected); Strep agal(GrpB) Not Reported Not Detected (NotDetected); Strep pneum Not Reported Not Detected (NotDetected); Strep pyog (GrpA) Not Reported Not Detected (NotDetected); Strep spp Not Reported Not Detected (NotDetected); VIM Resistant Gene Not Detected (NotDetected); mcr-1 Colistin Resistant Gene Not Detected (NotDetected)
[2023-04-16] MEDS: PIPERACILLIN/TAZOBACTAM 4.5 GM in DEXTROSE 5% 100 ML IV SCH ×4 (02:38→21:27)
[2023-04-16] MEDS: ONDANSETRON INJ 2 MG/ML 2 ML VIAL IV PRN (06:31)
[2023-04-16] MEDS: ACETAMINOPHEN 325 MG TAB PO PRN (07:13)
[2023-04-16] MEDS ORDERED: ACETAMINOPHEN 325 MG TAB PO SCH (08:30)
[2023-04-16 08:59] LABS: Hematocrit (blood only) 32.8 % (42.0-52.0); Hemoglobin 11.4 g/dl (14.0-18.0); Mean Corpuscular Hemoglobin 27.9 pg (25.0-34.0); Mean Corpuscular Hgb Conc 34.8 g/dL (32.0-36.0); Mean Corpuscular Volume 80.4 fL (80.0-100.0); Mean Platelet Volume 10.4 fL (9.4-12.4); Platelet Count 184 K/uL (130-400); RDW Coefficient of Variation 13.4 % (11.5-14.5); RDW Standard Deviation 39.2 fL (36.4-46.3); Red Blood Count 4.08 M/uL (4.70-6.10); White Blood Count 10.15 K/ul (4.8-10.8)
[2023-04-16 09:13] LABS: BUN Creatinine Ratio 14.3 (10-20); Calcium 7.7 mg/dl (8.6-10.3); Creatinine Clr Calc Pharmacy 130.4 ml/min; Est GFR (African American) 127.5 ml/min; Potassium 3.1 mmol/L (3.5-5.1)
[2023-04-16] MEDS: HEPARIN SODIUM/DEXTROSE 25,000 UNITS/500 ML BAG IV SCH (09:18)
[2023-04-16 09:38] LABS: Basophils # (auto) 0.02 K/uL (0.00-0.20); Basophils % (auto) 0.2 %; Immature Granulocytes # (auto) 0.06 K/uL (0.01-0.20); Immature Granulocytes % (auto) 0.6 %; Lymphocytes # (auto) 0.25 K/uL (1.20-3.40); Lymphocytes % (auto) 2.5 %; Monocytes # (auto) 0.31 K/uL (0.11-0.59); Monocytes % (auto) 3.1 %; Neutrophils # (auto) 9.51 K/uL (1.40-6.50); Neutrophils % (auto) 93.6 %; Ovalocytes 1+; Polychromasia 1+
[2023-04-16 09:50] LABS: Partial Thromboplastin Ratio 1.7
[2023-04-16 09:59] LABS: Partial Thromboplastin Time 46.8 Seconds (21.0-31.0)
--- NOTE | 2023-04-16 10:41 | Surgery Progress Note ---
Seen and examined this patient with the surgical PA this a.m. I agree with the plan Date of Service April 16, 2023 Assessment & Plan (1) Acute ischemic colitis: Plan: Patient here with colitis, + PE's and thrombus in IMV and portal veins WBC 10, Hbg 11. + fever this AM to 39.1. Otherwise HRs and BPs stable He reports feeling unwell this AM when he had the fever/chills. received Tylenol with some relief + loose BMs, no blood noted. Denies any abdominal pain, n/v Would recommend reaching out to Dr. Arguello and his team as pt had a f/u appt today to take off splint. would be beneficial to evaluate to rule out infection of the LE as well Continue NPO with IVF and IV abx for now. will continue to follow along closely (2) Acute diverticulitis: (3) Pulmonary emboli: Admission and Anticipated Discharge Date Admission Date: April 15, 2023 Subjective Patient not feeling great this AM. Reports + fevers/chills. Denies any abdominal pain. States he has been having looser BM's, no blood noted. No n/v. Physical Exam Physical Exam: awake/alert Respiratory: normal respiratory effort Gastrointestinal (Abdomen): Inspection/Auscultation: abdomen not distended Percussion/Palpation: abdomen soft; abdomen nontender Results & Data Vital Signs (Past 12 Hours) Vital Signs Temp Pulse Pulse Resp BP Pulse Ox O2 Del Method 04/16/23 07:13 39.1 C H 04/16/23 06:00 87 16 133/81 97 Room Air 04/16/23 05:00 100 H 16 125/76 95 Room Air 04/16/23 03:00 104 H 16 123/76 95 Room Air 04/15/23 23:35 93 H 04/15/23 23:00 98 H 18 116/77 98 Room Air PG Care Time/CCT Total # of Minutes Spent Total Time Spent with Patient: Total time spent is greater than 50% in coordination of care (as documented) at patient's floor/unit and/or counseling patient: Coding Level of Care Code 72214 SUB INP/OBS CARE 25MIN Diagnoses Acute ischemic colitis K55.039 Acute diverticulitis K57.92 Pulmonary emboli I26.99
[2023-04-16] MEDS ORDERED: VANCOMYCIN HCL 1,750 MG in SODIUM CHLORIDE 0.9% 500 ML IV ONE (10:57)
--- NOTE | 2023-04-16 12:30 | Infectious Disease Consult ---
Date of Consultation April 16, 2023 Assessment & Plan (1) History of arthroplasty of right ankle: (2) Acute ischemic colitis: (3) Acute diverticulitis: Plan This is a 48-year-old male with a past medical history of hypertension,hyperlipidemia recent R ankle fracture sp hardware 2 weeks ago presents with fevers, rigors, nausea, and vomiting for 3 days. Since surgery he has be offloading and not moving much. He has had decreased po intake. He has been taking colace for decreased BM while on pain medication. In the ED he was febrile with temp 39.1 and tachycardic ( HR 155). Labs noted for wbc 4.66k ( up to 10k), procal 0.68. Covid, infl, rsv testing negative. CTAB showed thickening of the sigmoid colon with associated microperforation and multiple inflamed diverticula as well as partial thrombosis of the majority of the inferior mesenteric vein with associated scattered foci of gas at the distal inferior mesenteric vein as well as portal venous gas identified in the right hepatic dome consistent with an ischemic colitis of the sigmoid colon.There was also few thrombosed distal branches of the right portal vein as well as small pulmonary embolus within the right lower lobe and 2 small peripheral wedge- shaped densities within the periphery of the left lower lobe c/w pulmonary infarcts. He was started on hep gtt Admission Bc grew GNR, GPC in chains and GPR. BCID identified EColi, PSA and E . Faecium. He was started on Zosyn He received a dose of vanco today. He denies abdominal pain, diarrhea, illicit drug use, pain at recent R foot/ankle sx site. He feels well overall. ID consulted for polymicrobial bacteremia. Micro Bc 04/15/ bottles ( GNR) 3/4 bottles ( GPR), 1/4 bottles ( GPC chains) BCID + PSA,Ecoli, E Feacium( VRE not detected) Abx vanco times one 04/16 zosyn 04/15-ongoing #Polymicrobial bacteremia #Possible sigmoid diverticulitis #Possible ischemic colitis with partially thrombosed IMV and distal branches of RPV #Pulmonary Embolism and Infarct # H/o recent R Trimalleolar fractures s/p hardware placement 2 weeks ago # Distant h/o Left foot crush injury with hardware Source of polymicrobial bacteremia is unclear. It may be the abdomen, given abnormal CtAB findings, However, would expect more abdominal pain. He has newly placed hardware in the R ankle, but he denies pain at site. An endovascular infection needs to be ruled.out in setting of + BC, PE/ infact and Mesenteric Vein Thrombosis/Portal Vein Thrombosis seen on abdominal imaging . The BCID identified PSA,Ecoli, E Feacium( VRE not detected). These do not account for the GPR see on BC. The GPR may represent Clostridium given possible diverticulitis on imaging. Recommendations; Start IV vancomycin per pharm protocol. D/w pharmacy .Since no VRE detected on biofire, the E.Feacium should be covered with Vanco. Continue Zosyn for coverage of PSA, ecoli and ? clostridium Check TTE FOllow up ID and sensi of GPR. GNR and GPC in chains on 04/15 BC Repeat BC to ensure clearance Thank you for this consultation. ID will continue to follow. Priscila Haji MD, MPH Infectious Disease [facility], [facility] Call [phone] with questions e Consultation Information Consultation was provided via telemedicine using two-way real-time interactive telecommunication between the patient and the telemedicine provider. For the duration of the visit, the provider was performing the assessment from a different facility than the patient. This includesuse of bluetooth stethoscope forauscultationperformed by the telepresenter that the telemedicine provider can hear if described in the physical exam. Signal Apprentice contact information: Please call [facility] Call Center . (Phone Number For Physician Use Only) After establishing a telemedicine visit, patient was: Patient was verified with two unique identifiers and Patient/authorized rep acknowledged consent and understanding Time Spent with Patient: Initial => 75 min History of Present Illness Reason for Consultation: Gram positive and gram negative bacteremia Requesting Physician: Daniella Sahu MD Attending Physician: Jessica Orosco DO History of Present Illness This is a 48-year-old male with a past medical history of hypertension,hyperl ipidemia recent R ankle fracture sp hardware 2 weeks ago presents with fevers, rigors, nausea, and vomiting for 3 days. Since surgery he has be offloading and not moving much. He has had decreased po intake. He has been taking colace for decreased BM while on pain medication. In the ED he was febrile with temp 39.1 and tachycardic ( HR 155). Labs noted for wbc 4.66k ( up to 10k), procal 0.68. Covid, infl, rsv testing negative. CTAB showed thickening of the sigmoid colon with associated microperforation and multiple inflamed diverticula as well as partial thrombosis of the majority of the inferior mesenteric vein with associated scattered foci of gas at the distal inferior mesenteric vein as well as portal venous gas identified in the right hepatic dome consistent with an ischemic colitis of the sigmoid colon.There was also few thrombosed distal branches of the right portal vein as well as small pulmonary embolus within the right lower lobe and 2 small peripheral wedge- shaped densities within the periphery of the left lower lobe c/w pulmonary infarcts. He was started on hep gtt Admission Bc grew GNR, GPC in chains and GPR. BCID identified EColi, PSA and E . Faecium. He was started on Zosyn He received a dose of vanco today. He denies abdominal pain, diarrhea, illicit drug use, pain at recent R foot/ankle sx site. He feels well overall. ID consulted for polymicrobial bacteremia. Allergies Allergy/AdvReac Type Severity Reaction Status Date / Time No Known Allergies Allergy Unverified 01/12/20 15:30 Home Medications Medication Instructions Recorded Confirmed Type losartan 50 mg tablet 50 mg PO DAILY 01/12/20 04/15/23 History simvastatin 40 mg tablet 40 mg PO DAILY 01/12/20 04/15/23 History oxycodone-acetaminophen 5 mg-325 1 tab PO USEASDIRECTD PRN Pain 04/15/23 04/15/23 History mg tablet Patient History Medical History Deficient knowledge of leg surgery Family History Mother Breast cancer Grandmother (Maternal) Myocardial infarction Denies family history of Ovarian cancer Prostate cancer Colorectal cancer Social History Smoking Status: Never smoker Second Hand Exposure: No; Do You Dip or Chew Tobacco: Yes; Hx Substance Use: No Preferred Language: Syrian Communication Ability: Effective Visual Impairment: No Limitations Hearing Ability: Normal Group Fitness Instructor Required: No Beliefs That Will Affect Care: None Current Living Situation: Spouse Feels Safe at Home: Yes Assistive Devices: Crutches Review of System A 10 point ROS obtained. Pertinent posiitives as per HPI. Physical Exam Constitutional: NAD, comfortable. lying in bed in ED Eyes: Anicteric sclera Neck: Supple Respiratory: No increased work of breathing Gastrointestinal (Abdomen): soft, not tender, not distended, no rebound, no guarding Musculoskeletal: RLE in cast. No ascending erythema. Skin: No open wounds on exposed skin Neurologic: awake,alert and oriented times 3 Psychiatric: Cooperative, appropriate Results & Data Vital Signs (Past 12 Hours) Vital Signs Temp Pulse Resp BP Pulse Ox O2 Del Method 04/16/23 11:23 37.6 C H 87 20 121/74 94 Room Air 04/16/23 07:13 39.1 C H 04/16/23 06:00 87 16 133/81 97 Room Air 04/16/23 05:00 100 H 16 125/76 95 Room Air 04/16/23 03:00 104 H 16 123/76 95 Room Air Laboratory Results Laboratory Results - last 48 hr 04/15/23 04/15/23 04/15/23 10:24 10:24 10:24 WBC 4.66 L RBC 4.86 Hgb 13.5 L Hct 39.3 L MCV 80.9 MCH 27.8 MCHC 34.4 RDW Std Deviation 38.6 RDW Coeff of Angelo 13.2 Plt Count 263 MPV 10.1 Immature Gran % (Auto) 0.4 Neut % (Auto) 93.2 Lymph % (Auto) 5.6 Summers % (Auto) 0.2 Eos % (Auto) 0.2 Baso % (Auto) 0.4 Neut # (Auto) 4.34 Lymph # (Auto) 0.26 L Summers # (Auto) 0.01 L Eos # (Auto) 0.01 Baso # (Auto) 0.02 Immature Gran # (Auto) 0.02 RBC Morphology Unremarkable Polychromasia Ovalocytes PT 11.5 INR 1.1 APTT 24.2 PTT Ratio 0.9 Sodium Potassium Chloride Carbon Dioxide Anion Gap BUN Creatinine Est Cr Clr Drug Dosing Est GFR ( Amer) Est GFR (Non-Af Amer) BUN/Creatinine Ratio Glucose Lactate 1.5 Calcium Magnesium Total Bilirubin AST ALT Alkaline Phosphatase Troponin I High Sens Total Protein Albumin Globulin Albumin/Globulin Ratio Procalcitonin Urine Color Urine Appearance Urine pH Ur Specific [place] Urine Protein Urine Glucose (UA) Urine Ketones Urine Blood Urine Nitrite Urine Bilirubin Urine Urobilinogen Ur Leukocyte Esterase Urine WBC (Auto) Urine RBC (Auto) U Hyaline Cast (Auto) U Epithel Cells (Auto) Urine Bacteria (Auto) Anaplasma Smear See Comment Lyme Disease IgG Ab Lyme Disease IgM Ab SARS-CoV-2 (PCR) Enterobacterales (PCR) E. coli (PCR) Influenza Type A (PCR) Influenza Type B (PCR) RSV (RT-PCR) mcr-1 Colistin Res Gene PCR blaIMP Car res Gene PCR KPC-Carbap Res Gene PCR blaNDM Car Res Gene PCR OXA-48 Carbapenem Resis Gene (PCR) blaVIM Car Res Gene PCR CTX-M Gene Resistance (PCR) Bld Cult ID Panel PCR 04/15/23 04/15/23 04/15/23 10:24 10:24 10:24 WBC RBC Hgb Hct MCV MCH MCHC RDW Std Deviation RDW Coeff of Angelo Plt Count MPV Immature Gran % (Auto) Neut % (Auto) Lymph % (Auto) Summers % (Auto) Eos % (Auto) Baso % (Auto) Neut # (Auto) Lymph # (Auto) Summers # (Auto) Eos # (Auto) Baso # (Auto) Immature Gran # (Auto) RBC Morphology Polychromasia Ovalocytes PT INR APTT PTT Ratio Sodium 134 L Potassium 3.6 Chloride 100 Carbon Dioxide 20 L Anion Gap 14 H BUN 14 Creatinine 0.82 Est Cr Clr Drug Dosing 111.3 Est GFR ( Amer) 119.5 Est GFR (Non-Af Amer) 103.1 BUN/Creatinine Ratio 17.1 Glucose 142 H Lactate Calcium 9.0 Magnesium 1.5 L Total Bilirubin 1.6 H AST 16 ALT 29 Alkaline Phosphatase 67 Troponin I High Sens 3.3 Total Protein 6.6 Albumin 3.8 Globulin 2.8 Albumin/Globulin Ratio 1.4 Procalcitonin 0.68 H Urine Color Urine Appearance Urine pH Ur Specific [place] Urine Protein Urine Glucose (UA) Urine Ketones Urine Blood Urine Nitrite Urine Bilirubin Urine Urobilinogen Ur Leukocyte Esterase Urine WBC (Auto) Urine RBC (Auto) U Hyaline Cast (Auto) U Epithel Cells (Auto) Urine Bacteria (Auto) Anaplasma Smear Lyme Disease IgG Ab Lyme Disease IgM Ab SARS-CoV-2 (PCR) NEGATIVE Enterobacterales (PCR) E. coli (PCR) Influenza Type A (PCR) Negative Influenza Type B (PCR) Negative RSV (RT-PCR) Negative mcr-1 Colistin Res Gene PCR blaIMP Car res Gene PCR KPC-Carbap Res Gene PCR blaNDM Car Res Gene PCR OXA-48 Carbapenem Resis Gene (PCR) blaVIM Car Res Gene PCR CTX-M Gene Resistance (PCR) Bld Cult ID Panel PCR 04/15/23 04/15/23 04/15/23 10:24 10:52 14:36 WBC RBC Hgb Hct MCV MCH MCHC RDW Std Deviation RDW Coeff of Angelo Plt Count MPV Immature Gran % (Auto) Neut % (Auto) Lymph % (Auto) Summers % (Auto) Eos % (Auto) Baso % (Auto) Neut # (Auto) Lymph # (Auto) Summers # (Auto) Eos # (Auto) Baso # (Auto) Immature Gran # (Auto) RBC Morphology Polychromasia Ovalocytes PT INR APTT PTT Ratio Sodium Potassium Chloride Carbon Dioxide Anion Gap BUN Creatinine Est Cr Clr Drug Dosing Est GFR ( Amer) Est GFR (Non-Af Amer) BUN/Creatinine Ratio Glucose Lactate Calcium Magnesium Total Bilirubin AST ALT Alkaline Phosphatase Troponin I High Sens Total Protein Albumin Globulin Albumin/Globulin Ratio Procalcitonin Urine Color [place] Urine Appearance Cloudy A Urine pH 5.5 Ur Specific [place] 1.015 Urine Protein Trace H Urine Glucose (UA) Negative Urine Ketones 3+ H Urine Blood Negative Urine Nitrite Negative Urine Bilirubin 1+ H Urine Urobilinogen Positive H Ur Leukocyte Esterase Negative Urine WBC (Auto) 1-5 Urine RBC (Auto) 0-4 U Hyaline Cast (Auto) 5-10 H U Epithel Cells (Auto) 0-5 Urine Bacteria (Auto) Negative Anaplasma Smear Lyme Disease IgG Ab Negative Lyme Disease IgM Ab Negative SARS-CoV-2 (PCR) Enterobacterales (PCR) DETECTED A E. coli (PCR) DETECTED A Influenza Type A (PCR) Influenza Type B (PCR) RSV (RT-PCR) mcr-1 Colistin Res Gene PCR Not Detected blaIMP Car res Gene PCR Not Detected KPC-Carbap Res Gene PCR Not Detected blaNDM Car Res Gene PCR Not Detected OXA-48 Carbapenem Resis Gene (PCR) Not Detected blaVIM Car Res Gene PCR Not Detected CTX-M Gene Resistance (PCR) Not Detected Bld Cult ID Panel PCR See PCR Comment 04/15/23 04/16/23 04/16/23 23:01 08:37 08:37 WBC 10.15 RBC 4.08 L Hgb 11.4 L Hct 32.8 L MCV 80.4 MCH 27.9 MCHC 34.8 RDW Std Deviation 39.2 RDW Coeff of Angelo 13.4 Plt Count 184 MPV 10.4 Immature Gran % (Auto) 0.6 Neut % (Auto) 93.6 Lymph % (Auto) 2.5 Summers % (Auto) 3.1 Eos % (Auto) 0.0 Baso % (Auto) 0.2 Neut # (Auto) 9.51 H Lymph # (Auto) 0.25 L Summers # (Auto) 0.31 Eos # (Auto) 0.00 Baso # (Auto) 0.02 Immature Gran # (Auto) 0.06 RBC Morphology Polychromasia 1+ Ovalocytes 1+ PT INR APTT 39.0 H PTT Ratio 1.4 Sodium 135 L Potassium 3.1 L Chloride 102 Carbon Dioxide 24 Anion Gap 9 BUN 10 Creatinine 0.70 Est Cr Clr Drug Dosing 130.4 Est GFR ( Amer) 127.5 Est GFR (Non-Af Amer) 110.0 BUN/Creatinine Ratio 14.3 Glucose 152 H Lactate Calcium 7.7 L Magnesium Total Bilirubin AST ALT Alkaline Phosphatase Troponin I High Sens Total Protein Albumin Globulin Albumin/Globulin Ratio Procalcitonin Urine Color Urine Appearance Urine pH Ur Specific [place] Urine Protein Urine Glucose (UA) Urine Ketones Urine Blood Urine Nitrite Urine Bilirubin Urine Urobilinogen Ur Leukocyte Esterase Urine WBC (Auto) Urine RBC (Auto) U Hyaline Cast (Auto) U Epithel Cells (Auto) Urine Bacteria (Auto) Anaplasma Smear Lyme Disease IgG Ab Lyme Disease IgM Ab SARS-CoV-2 (PCR) Enterobacterales (PCR) E. coli (PCR) Influenza Type A (PCR) Influenza Type B (PCR) RSV (RT-PCR) mcr-1 Colistin Res Gene PCR blaIMP Car res Gene PCR KPC-Carbap Res Gene PCR blaNDM Car Res Gene PCR OXA-48 Carbapenem Resis Gene (PCR) blaVIM Car Res Gene PCR CTX-M Gene Resistance (PCR) Bld Cult ID Panel PCR 04/16/23 08:37 WBC RBC Hgb Hct MCV MCH MCHC RDW Std Deviation RDW Coeff of Angelo Plt Count MPV Immature Gran % (Auto) Neut % (Auto) Lymph % (Auto) Summers % (Auto) Eos % (Auto) Baso % (Auto) Neut # (Auto) Lymph # (Auto) Summers # (Auto) Eos # (Auto) Baso # (Auto) Immature Gran # (Auto) RBC Morphology Polychromasia Ovalocytes PT INR APTT 46.8 H* PTT Ratio 1.7 Sodium Potassium Chloride Carbon Dioxide Anion Gap BUN Creatinine Est Cr Clr Drug Dosing Est GFR ( Amer) Est GFR (Non-Af Amer) BUN/Creatinine Ratio Glucose Lactate Calcium Magnesium Total Bilirubin AST ALT Alkaline Phosphatase Troponin I High Sens Total Protein Albumin Globulin Albumin/Globulin Ratio Procalcitonin Urine Color Urine Appearance Urine pH Ur Specific [place] Urine Protein Urine Glucose (UA) Urine Ketones Urine Blood Urine Nitrite Urine Bilirubin Urine Urobilinogen Ur Leukocyte Esterase Urine WBC (Auto) Urine RBC (Auto) U Hyaline Cast (Auto) U Epithel Cells (Auto) Urine Bacteria (Auto) Anaplasma Smear Lyme Disease IgG Ab Lyme Disease IgM Ab SARS-CoV-2 (PCR) Enterobacterales (PCR) E. coli (PCR) Influenza Type A (PCR) Influenza Type B (PCR) RSV (RT-PCR) mcr-1 Colistin Res Gene PCR blaIMP Car res Gene PCR KPC-Carbap Res Gene PCR blaNDM Car Res Gene PCR OXA-48 Carbapenem Resis Gene (PCR) blaVIM Car Res Gene PCR CTX-M Gene Resistance (PCR) Bld Cult ID Panel PCR Diagnostic Findings Microbiology 04/15/23 10:52 Blood Aerobic Blood Culture - Preliminary Gram negative bacilli 04/15/23 10:52 Blood Anaerobic Blood Culture - Preliminary Gram negative bacilli Gram positive bacilli 04/15/23 10:24 Blood Aerobic Blood Culture - Preliminary Gram negative bacilli Gram positive bacilli 04/15/23 10:24 Blood Anaerobic Blood Culture - Preliminary Gram negative bacilli Gram positive bacilli Chest X-Ray 04/15/23 10:14 XR chest 1V not portable HISTORY: Sepsis COMPARISON: None. FINDINGS: The lungs are clear. Cardiac silhouette is normal in size. No pleural effusions. No pneumothorax. IMPRESSION: No acute process. ACT 112: Negative or not required by law. Electronically signed by: Lance Meier M.D. 04/15/2023 10:57 AM Abdomen/Pelvis CT 04/15/23 11:[address] WITH IV CONTRAST CT DOSE: 1157.91 mGy.cm HISTORY: Persistent nausea and vomiting. TECHNIQUE: Multiaxial CT images of the abdomen and pelvis were performed following the use of intravenous contrast. A dose lowering technique was utilized adhering to the principles of ALARA. COMPARISON STUDY: None. FINDINGS: A few punctate calcified granuloma seen within the lung bases. Small filling defect within the subsegmental branch of the right lower lobe pulmonary artery on image 30. Therefore, this likely represents a small pulmonary embolus. There are 2 small focal wedge-shaped density seen within the periphery of the left lower lobe the largest on image 58 measuring 2 cm. These may represent pulmonary infarcts. Scattered punctate sclerotic foci within the pelvic bones favor bone islands. Otherwise, no suspicious lytic or blastic osseous lesions. Mild hepatic steatosis. The main portal vein is patent. However, a few of the distal portal veins within the right hepatic lobe are thrombosed. In addition, there are scattered foci of portal venous gas identified within the right hepatic dome. The spleen, pancreas, adrenal glands, kidneys are unremarkable. No hydronephrosis. Normal caliber abdominal aorta with mild calcified plaque. The bladder is unremarkable. The prostate gland is mildly enlarged. There is focal thickening within the mid sigmoid colon with multiple diverticula. There is a large inflamed diverticulum with evidence for extraluminal gas consistent with microperforation and pericolonic fat stranding. No loculated fluid collections at this time to suggest an abscess. There are few small scattered foci of gas at the distal inferior mesenteric vein adjacent to the inflamed diverti culum/sigmoid colon. In addition, there is heterogeneous enhancement within the majority of the inferior mesenteric vein consistent with areas of thrombus. Therefore, in conjunction with the portal venous gas, these findings are concerning for an underlying ischemic colitis of the sigmoid colon. No dilated loops of bowel to suggest an obstruction. Normal appendix. IMPRESSION: 1. There is thickening of the sigmoid colon with associated microperforation and multiple inflamed diverticula. This has the appearance of an acute sigmoid diverticulitis. However, there is partial thrombosis of the majority of the inferior mesenteric vein with associated scattered foci of gas at the distal inferior mesenteric vein as well as portal venous gas identified in the right hepatic dome. Therefore, these findings are consistent with an ischemic colitis of the sigmoid colon. 2. There are few thrombosed distal branches of the right portal vein. 3. There is a small pulmonary embolus within the right lower lobe. There are 2 small peripheral wedge-shaped densities within the periphery of the left lower lobe likely representing pulmonary infarcts. 4. Additional findings as described above. ACT 112: Negative or not required by law. Electronically signed by: Lance Meeir M.D. 04/15/2023 2:44 PM Medications Administered Home Medications Medication Instructions Recorded Confirmed Last Taken losartan 50 mg tablet 50 mg PO DAILY 01/12/20 04/15/23 04/13/23 simvastatin 40 mg tablet 40 mg PO DAILY 01/12/20 04/15/23 04/13/23 oxycodone-acetaminophen 5 mg-325 1 tab PO USEASDIRECTD PRN Pain 04/15/23 04/15/23 Unknown mg tablet Active Medications Generic Name Dose Route Start Last Admin Trade Name Freq PRN Reason Stop Dose Admin Heparin Sodium/Dextrose 25,000 units in 500 mls @ 30 mls/hr 04/15/23 15:30 04/16/23 09:18 Heparin Sodium/Dextrose IV 05/15/23 15:29 1,500 units/hr .[id number] RICARDO 30 mls/hr Administration Protocol 1,500 UNITS/HR Parenteral Electrolytes 1,000 mls @ 125 mls/hr 04/15/23 16:00 04/16/23 02:42 Plasma-Lyte A Ph 7.4 IV 05/15/23 15:59 Infused .Q8H RICARDO Infusion Piperacillin Sod/Tazobactam 120 mls @ 30 mls/hr 04/15/23 22:00 04/16/23 11:18 Sod 4.5 gm/ Dextrose IV 04/25/23 21:59 Infused Q8H RICARDO Infusion Protocol Vancomycin HCl 1,750 mg/ 535 mls @ 200 mls/hr 04/16/23 10:57 04/16/23 11:25 Sodium Chloride IV 04/16/23 13:37 200 mls/hr NOW ONE Administration Ondansetron HCl 4 mg 04/15/23 21:04 04/16/23 06:31 Ondansetron Inj 2 Mg/Ml 2 Ml Vial IV 05/15/23 21:03 4 mg Q6H PRN Administration Nausea And Vomiting
[2023-04-16 12:42] LABS: A calco-baum cmplx NotReported Not Detected (NotDetected); Bact fragilis Not Reported Not Detected (NotDetected); C auris Not Reported Not Detected (NotDetected); CTX-M Resistant Gene Not Detected (NotDetected); Calbicans Not Reported Not Detected (NotDetected); Candida glabrata Not Reported Not Detected (NotDetected); Candida krusei Not Reported Not Detected (NotDetected); Cneoformans/gatti Not Reported Not Detected (NotDetected); Cparapsilosis Not Reported Not Detected (NotDetected); Ctropicalis Not Reported Not Detected (NotDetected); E cloacae compx Not Reported Not Detected (NotDetected); Efaecalis Not Reported Not Detected (NotDetected); Efaecium Not Reported DETECTED (NotDetected); Enterobacterales DETECTED (NotDetected); Enterobacterales Not Reported DETECTED (NotDetected); Escherichia coli Not Reported DETECTED (NotDetected); H influenzae Not Reported Not Detected (NotDetected); IMP Resistant Gene Not Detected (NotDetected); K aerogenes Not Reported Not Detected (NotDetected); KPC Resistant Gene Not Detected (NotDetected); Koxytoca Not Reported Not Detected (NotDetected); Kpneumoniae grp Not Reported Not Detected (NotDetected); Lmonocyt Not Reported Not Detected (NotDetected); N meningitidis Not Reported Not Detected (NotDetected); NDM Resistant Gene Not Detected (NotDetected); OXA 48 Like Resistant Gene Not Detected (NotDetected); P aeruginosa Not Reported DETECTED (NotDetected); Proteus spp Not Reported Not Detected (NotDetected); Salmonella spp Not Reported Not Detected (NotDetected); Smarcescens Not Reported Not Detected (NotDetected); Staph lugdunensis Not Reported Not Detected (NotDetected); Staph spp. Not Reported Not Detected (NotDetected); Staphaureus Not Reported Not Detected (NotDetected); Staphepi Not Reported Not Detected (NotDetected); Stenmaltophilia Not Reported Not Detected (NotDetected); Strep agal(GrpB) Not Reported Not Detected (NotDetected); Strep pneum Not Reported Not Detected (NotDetected); Strep pyog (GrpA) Not Reported Not Detected (NotDetected); Strep spp Not Reported Not Detected (NotDetected); VIM Resistant Gene Not Detected (NotDetected); VanAB Resistant Gene VRE Not Detected (NotDetected); mcr-1 Colistin Resistant Gene Not Detected (NotDetected)
[2023-04-16 13:29] LABS: Enterococcus faecium DETECTED (NotDetected)
[2023-04-16 13:30] LABS: Pseudomonas aeruginosa DETECTED (NotDetected)
[2023-04-16] MEDS ORDERED: VANCOMYCIN CONSULT ACTIVE PRN (14:52)
--- NOTE | 2023-04-16 15:23 | Pharmacy Report ---
Pharmacy PK ABX Note - Date of Service April 16, 2023 - Assessment and Plan Assessment 48 year old M started on Vancomycin today for treatment of bacteremia. Pertinent microbiologic data includes: positive blood cultures growing gram negative bacilli, gram positive bacilli and gram positive cocci in chains. Plan Vancomycin * Loading dose: 1750 mg IV x 1 given today AM in ED * Maintenance dose: 1500 mg IV every q12 hours starting this evening * Renal function is good with CrCl greater than 125 ml/min * Regimen is predicted to achieve target AUC/OSBALDO of 400-600 mg/L.hr * Trough Vancomycin level ordered for: 04/18/23 @04:00 Pharmacy will continue to follow and will adjust dose/frequency as necessary. Thank you. Pharmacy has transitioned to AUC monitoring for vancomycin. AUC/OSBALDO is the preferred PK/PD target and is associated with decreased risk of nephrotoxicity compared to traditional trough targets. Patient is also on Zosyn 4.5 gm IV Q8h extended infusion to cover gram negative organisms also. Dosed appropriately.
[2023-04-16] MEDS: PLASMA-LYTE A 1,000 ML IV SCH ×3 (15:34→23:52)
[2023-04-16] MEDS: ACETAMINOPHEN 1,000 MG/100 ML VIAL IV PRN (16:15)
--- NOTE | 2023-04-16 18:19 | Hospitalist Progress Note ---
Date of Service April 16, 2023 Assessment & Plan (1) Acute diverticulitis: Plan: Temp 39.1C, WBC: 10 (last 4.66) Labs positive for enterobacter, enterococci, pseudomonas, and Ecoli. Bacteremic. Sensitivities pending CT showed sigmoid colon thickening with multiple diverticula with microperforation. ID consult: Start Vancomycin and continue Zosyn Consult with surgical team: Continue NPO with IVF and IV abx for now. No current indication for surgery. Currently hydrated with IVF. Fever control IV tylenol c diff panel negative trend cbc (2) Acute ischemic colitis: Plan: CT showed thrombosis of inferior mesenteric vein and distal branch of R portal vein with scattered foci of gas at the distal IMV and portal venous gas in the right hepatic dome. PE in RLL of lung. Likely 2/2 immobilization of right foot s/p repair 2 weeks ago Started heparin drip for PE, thrombosis found in IMV and portal vein. Consider Eliquis after discharge. Consult with surgical team for possible surgical intervention. (3) History of arthroplasty of right ankle: Plan: right ankle surgical repair 2 weeks ago, f/u was to be today consulted ortho for assistance in ankle management and removal of splint some suspicion this may be a source of bacteremia, will continue to monitor (4) Pulmonary emboli: Plan: VTE possibly due to immobilization post ankle surgery. Continue heparin drip. hypercoag panel pending (5) Infarctions, pulmonary: Plan: Continue heparin drip (6) Hypertension: Plan: Managed with Losartan but was d/c for the past few days due to NPO. Admission and Anticipated Discharge Date Admission Date: April 15, 2023 Supervising Physician Co-Signing Physician Notes I personally examined the patient and verified vazquez points of history and exam, discussed case, and agree with decision making and plan documented by Dr. Sahu and Leilani Rosa MS II. Patient presenting with ischemic colitis, bacteremia (+bcx with gram negative bacilli, gram positive bacilli and gram positive cocci in chains), multiple thrombosis, PE, and diverticulitis. Patient on IV vancomycin and pip-tazo, heparin drip and IVF, awaiting sensitivities and ID consultation. Unclear source of infection, possibly perforated bowel and/or surgical wound. Orthopedics consulted to remove cast and evaluate surgical site. On exam, patient lying in bed, febrile, lungs clear b/l to auscultation, regular rate and rhythm, mild tenderness of LLQ, right foot in cast, no acute distress. Pain controlled. Monitor closely. Subjective Sepsis: Patient presented to the ED yesterday after a 2 week onset of fever, N&V after his ankle surgery. Pt had active rigors yesterday and was provided tylenol which was unable to hold down but complains of no N&V today and was table to take tylenol this morning. Still feels fatigue and muscle weakness which he associates with his fever. Diverticulitis: Noticed an onset of diarrhea once last night and 3 times this morning. Pt describes the stool as watery and "chilly" with no melena/hematochezia. No pain with urination of hematuria. Reports no abd. at rest but slight lower quandrant discomfort with deep palpation. Does not have fiber in his diet and often eats red meat with no frequent exercise. Family history of diverticulitis. No previous colonoscopy. Ischemic colitis: No family history of blood clot. R ankle surgery: Surgery 2 weeks ago. No pain but slight numbness. Review of Systems Constitutional: Fever, chills and sweat Ear, Nose, Mouth, Throat: Normal dentition Respiratory: No SOB or cough Cardiovascular: Additional Comments: No chest pain Gastrointestinal: No abd. pain, watery diarrhea, no hematochezia/melena Musculoskeletal: muscle weakness and fatigue Physical Exam Constitutional: Aware and in no acute distress Eyes: PEERL, EOM intact ENMT: No lymphadenopathy or lymph node swelling, no palpable masses Respiratory: Lung CTA b/l, Normal breath sounds b/l, no wheezing, rales, or rhonchi, symmetrical chest wall expansion b/l Cardiovascular: Normal r/r, no r/m/g, tachycardic, no carotid bruits Gastrointestinal (Abdomen): Non distended, no palpable masses, slight lower quandrant rebound tenderness, slight decrease in bowel sounds in lower abd. Skin: Right ankle surgery. Foot in cast. Results & Data Results & Data Vital Signs (Past 12 Hours) Vital Signs Temp Pulse Pulse Resp BP Pulse Ox O2 Del Method 04/16/23 07:13 39.1 C H 04/16/23 06:00 87 16 133/81 97 Room Air 04/16/23 05:00 100 H 16 125/76 95 Room Air 04/16/23 03:00 104 H 16 123/76 95 Room Air 04/15/23 23:35 93 H 04/15/23 23:00 98 H 18 116/77 98 Room Air 04/15/23 21:00 93 H 18 133/98 98 Room Air Resident Activity Tracking Resident Involvement: Resident Care Provided Care Provided: Adult Hospital Medicine
[2023-04-16] MEDS: VANCOMYCIN HCL 1,500 MG in SODIUM CHLORIDE 0.9% 500 ML IV SCH (18:25)
--- NOTE | 2023-04-16 18:45 | Electrocardiogram Report ---
Test Reason : Blood Pressure : / mmHG Vent. Rate : 157 BPM Atrial Rate : 157 BPM P-R Int : 112 ms QRS Dur : 082 ms QT Int : 328 ms P-R-T Axes : 073 -64 066 degrees QTc Int : 530 ms Sinus tachycardia Left axis deviation Nonspecific ST abnormality Abnormal ECG When compared with ECG of 22-MAR-2010 20:19, QRS duration has decreased ST now depressed in Anterolateral leads T wave amplitude has increased in Anterolateral leads Confirmed by Zechariah Ricci ([id number]) on 04/16/2023 6:45:14 PM Referred By: REFERRED SELF Confirmed By:Aureliano Ricci
[2023-04-17] MEDS: HEPARIN SODIUM/DEXTROSE 25,000 UNITS/500 ML BAG IV SCH ×2 (02:16→19:06)
[2023-04-17] MEDS: VANCOMYCIN HCL 1,500 MG in SODIUM CHLORIDE 0.9% 500 ML IV SCH ×2 (06:05→17:33)
[2023-04-17] MEDS: PIPERACILLIN/TAZOBACTAM 4.5 GM in DEXTROSE 5% 100 ML IV SCH ×3 (06:06→22:06)
[2023-04-17 06:47] LABS: Hematocrit (blood only) 31.2 % (42.0-52.0); Hemoglobin 10.7 g/dl (14.0-18.0); Immature Granulocytes # (auto) 0.09 K/uL (0.01-0.20); Lymphocytes # (auto) 0.28 K/uL (1.20-3.40); Mean Corpuscular Hemoglobin 27.9 pg (25.0-34.0); Mean Corpuscular Hgb Conc 34.3 g/dL (32.0-36.0); Mean Corpuscular Volume 81.3 fL (80.0-100.0); Mean Platelet Volume 10.9 fL (9.4-12.4); Monocytes # (auto) 0.58 K/uL (0.11-0.59); Monocytes % (auto) 6.2 %; Neutrophils # (auto) 8.35 K/uL (1.40-6.50); Neutrophils % (auto) 89.8 %; Platelet Count 144 K/uL (130-400); RDW Coefficient of Variation 13.6 % (11.5-14.5); RDW Standard Deviation 39.9 fL (36.4-46.3); Red Blood Count 3.84 M/uL (4.70-6.10)
[2023-04-17 07:21] LABS: Calcium 7.3 mg/dl (8.6-10.3); Creatinine Clr Calc Pharmacy 182.5 ml/min; Est GFR (African American) 146.5 ml/min; Est GFR (Non-African American) 126.4 ml/min; Potassium 3.2 mmol/L (3.5-5.1)
[2023-04-17 07:41] LABS: Partial Thromboplastin Ratio 1.6
[2023-04-17 07:46] LABS: Partial Thromboplastin Time 44.5 Seconds (21.0-31.0)
[2023-04-17] MEDS: PLASMA-LYTE A 1,000 ML IV SCH ×2 (07:55→17:18)
--- NOTE | 2023-04-17 08:53 | Hospitalist Progress Note ---
Date of Service April 17, 2023 Assessment & Plan (1) Acute diverticulitis: Plan: On admit Temp 39.1C, WBC: 10 (last 4.66) Labs positive for enterobacter, enterococci, pseudomonas, and Ecoli. Bacteremic. Sensitivities pending CT showed sigmoid colon thickening with multiple diverticula with microperforation. ID consult: Start Vancomycin and continue Zosyn order echo repeat bcx drawn 04/17 Consult with surgical team: Continue NPO with IVF and IV abx for now. No current indication for surgery at this time. Currently hydrated with IVF. Fever control IV tylenol c diff panel negative trend cbc (2) Acute ischemic colitis: Plan: CT showed thrombosis of inferior mesenteric vein and distal branch of R portal vein with scattered foci of gas at the distal IMV and portal venous gas in the right hepatic dome. PE in RLL of lung. Likely 2/2 immobilization of right foot s/p repair 2 weeks ago Started heparin drip for PE, thrombosis found in IMV and portal vein. Consider Eliquis after discharge. Consult with surgical team for possible surgical intervention. (3) History of arthroplasty of right ankle: Plan: right ankle surgical repair 2 weeks ago consulted ortho Dr. Arguello for assistance in ankle management and removal of splint some suspicion this may be a source of bacteremia, will continue to monitor (4) Pulmonary emboli: Plan: VTE possibly due to immobilization post ankle surgery. Continue heparin drip. hypercoag panel pending (5) Infarctions, pulmonary: Plan: Continue heparin drip (6) Hypertension: Plan: Losartan on hold given NPO (7) E. coli sepsis: (8) Polymicrobial sepsis: Admission and Anticipated Discharge Date Admission Date: April 15, 2023 Supervising Physician Co-Signing Physician Notes I personally examined the patient and verified vazquez points of history and exam, discussed case, and agree with decision making and plan documented by Dr. Kirkpatrick. Patient feeling well, awaiting repeat blood cultures and sensitivities, remains on IV vancomycin and pip-tazo. Patient reports orthopedics removed cast today and did not see evidence of infection, cast replaced, unable to visualize right foot. Awaiting TTE. Subjective Patient seen at bedside, calm comfortable cooperative. Denies any fever nausea vomitting abd pain. Is still having watery diarrhea. Patient understands we are keeping him full NPO due to his blood cultures, however if he continues to improve will consider diet. Physical Exam Constitutional: WD/WN, vitals as above Eyes: PERRL, conjunctivae normal, anicteric sclerae ENMT: external ear and nose normal, oropharynx normal Neck: trachea midline, no thyromegaly Respiratory: normal respiratory effort, lungs clear to auscultation Cardiovascular: RRR, no murmur, no edema Gastrointestinal (Abdomen): Inspection/Auscultation: abdomen normal to inspection Percussion/Palpation: abdomen soft; abdomen nontender Musculoskeletal: right leg in splint Skin: no rashes, warm and dry Results & Data Results & Data Vital Signs (Past 12 Hours) Vital Signs Temp Pulse Pulse Resp BP Pulse Ox O2 Del Method 04/17/23 07:53 37.1 C 88 18 135/85 92 Room Air 04/17/23 03:18 37.1 C 90 18 143/83 H 90 Room Air 04/17/23 00:00 95 H 04/16/23 23:25 37.2 C 87 18 133/81 96 Room Air Resident Activity Tracking Resident Involvement: Resident Care Provided Care Provided: Adult Hospital Medicine
[2023-04-17] MEDS: ACETAMINOPHEN 1,000 MG/100 ML VIAL IV PRN ×2 (08:57→16:09)
--- NOTE | 2023-04-17 10:56 | Surgery Progress Note ---
Date of Service April 17, 2023 Assessment & Plan (1) E. coli sepsis: (2) Colitis: Plan Blood cultures have revealed that the patient has E. coli in the blood. There is no evidence for urinary tract infection and therefore a possible that this translocated from the colon. Patient remains asymptomatic at his abdomen, without bloody diarrhea. His orthopedic surgeon and will evaluate the surgical site to be sure that there are no concerns for infection there. Continue anticoagulation for the treatment of blood clot's, antibiotics for E. coli bacteremia, n.p.o., IV fluids. Admission and Anticipated Discharge Date Admission Date: April 15, 2023 Subjective Patient seen and examined this AM. He states he feels better and has been afebrile overnight. He continues to deny any abdominal pain and continues to have bowel function. No blood in his stools. Physical Exam Constitutional: + ill appearing (Appears in better condition than yesterday and the day before); no acute distress, not frail appearing and not diaphoretic Respiratory: normal respiratory effort; no respiratory distress, no labored breathing and does not use accessory muscles Gastrointestinal (Abdomen): Abdomen is soft, nontender, nondistended. No guarding or rebound or rigidity Musculoskeletal: Right lower extremity bandages in place Neurologic: moves all extremities and awake; no focal motor deficits and not confused Results & Data Vital Signs (Past 12 Hours) Vital Signs Temp Pulse Pulse Resp BP Pulse Ox O2 Del Method 04/17/23 08:00 Room Air 04/17/23 07:53 37.1 C 88 18 135/85 92 Room Air 04/17/23 03:18 37.1 C 90 18 143/83 H 90 Room Air 04/17/23 00:00 95 H 04/16/23 23:25 37.2 C 87 18 133/81 96 Room Air Laboratory Results WBC 9.3 H&H 10.7/31.2 from 11.4/32.8 yesterday PTT 44.5 the same Potassium 3.2 Blood cultures drawn on 04/15 revealing E. coli PG Care Time/CCT Total # of Minutes Spent Total Time Spent with Patient: Total time spent is greater than 50% in coordination of care (as documented) at patient's floor/unit and/or counseling patient: Coding Level of Care Code 82635 SUB INP/OBS CARE 09/05MIN Diagnoses E. coli sepsis A41.51 Colitis K52.9
--- NOTE | 2023-04-17 13:29 | Infectious Disease Progress Nt ---
Date of Service April 17, 2023 Assessment & Plan (1) History of arthroplasty of right ankle: (2) Acute ischemic colitis: (3) Acute diverticulitis: Plan This is a 48-year-old male with a past medical history of hypertension,hyperlipidemia recent R ankle fracture sp hardware 2 weeks ago presents with fevers, rigors, nausea, and vomiting for 3 days. Since surgery he has be offloading and not moving much. He has had decreased po intake. He has been taking colace for decreased BM while on pain medication. In the ED he was febrile with temp 39.1 and tachycardic ( HR 155). Labs noted for wbc 4.66k ( up to 10k), procal 0.68. Covid, infl, rsv testing negative. CTAB showed thickening of the sigmoid colon with associated microperforation and multiple inflamed diverticula as well as partial thrombosis of the majority of the inferior mesenteric vein with associated scattered foci of gas at the distal inferior mesenteric vein as well as portal venous gas identified in the right hepatic dome consistent with an ischemic colitis of the sigmoid colon.There was also few thrombosed distal branches of the right portal vein as well as small pulmonary embolus within the right lower lobe and 2 small peripheral wedge- shaped densities within the periphery of the left lower lobe c/w pulmonary infarcts. He was started on hep gtt Admission Bc grew GNR, GPC in chains and GPR. BCID identified EColi, PSA and E . Faecium. He was started on Zosyn He received a dose of vanco today. He denies abdominal pain, diarrhea, illicit drug use, pain at recent R foot/ankle sx site. He feels well overall. ID consulted for polymicrobial bacteremia. Micro Bc 04/15 4/4 bottles (ecoli) 1/4 GNR, 3/4 bottles ( GPR), 1/4 bottles ( Enterococcus sp) BCID + PSA,Ecoli, E Feacium( VRE not detected) Abx vanco 04/16-ongoing zosyn 04/15-ongoing #Polymicrobial bacteremia #Possible sigmoid diverticulitis #Possible ischemic colitis with partially thrombosed IMV and distal branches of RPV #Pulmonary Embolism and Infarct # H/o recent R Trimalleolar fractures s/p hardware placement 2 weeks ago # Distant h/o Left foot crush injury with hardware Source of polymicrobial bacteremia is unclear. The polymicrobial natrure and the organisms identified thus far are mostly GI organisms Gut translocation may be source. He has abnormal CtAB findings,but no abdominal pain with benign exam, . The BCID identified PSA,Ecoli, E Feacium( VRE not detected). These do not account for the GPR see on BC. The GPR may represent Clostridium given possible diverticulitis on imaging. If clostridium identified, then source is likely GI. He has newly placed hardware in the R ankle, but he denies pain at site. Foot is in a cast so I could not review the surgical site. I doubt GI organisms would origninate from this site, but persistent bacteremia could lead to seeding of the hardware. Lastly. an endovascular infection/endocarditis should be ruled.out in setting of + BC, PE/ infarct and Mesenteric Vein Thrombosis/Portal Vein Thrombosis. He denies illicit drug use. . Recommendations; Continue vancomycin per pharm protocol. .Since no VRE detected on biofire, the E.Feacium should be covered with Vanco. Continue Zosyn for coverage of PSA, ecoli and ? clostridium Check TTE FOllow up ID and sensi of GPR. GNR and GPC in chains on 04/15, will adjust abx based on results Repeat BC to ensure clearance ( ordered ) ID will continue to follow. Priscila Haji MD, MPH Infectious Disease [facility], [facility] Call [phone] with questions e Admission and Anticipated Discharge Date Admission Date: April 15, 2023 Subjective This patient recommendation is based on a telemedicine consult request which was completed asynchronously through chart review and information provided by the primary physician. The patient was not seen or examined today. The evaluation is consultative in nature and all patient care and treatment decisions can either be accepted or rejected by the patient's primary hospital-based treating physician using their own independent medical judgment for their patient. Time Spent Reviewing Chart: 11 - 20 minutes Afebrile. Final BC ID pending. Results & Data Vital Signs (Past 12 Hours) Vital Signs Temp Pulse Resp BP Pulse Ox O2 Del Method 04/17/23 11:19 36.7 C 75 18 144/89 H 95 Room Air 04/17/23 08:00 Room Air 04/17/23 07:53 37.1 C 88 18 135/85 92 Room Air 04/17/23 03:18 37.1 C 90 18 143/83 H 90 Room Air Laboratory Results Short CBC 04/17/23 Range/Units 05:49 WBC 9.30 (4.8-10.8) K/ul Hgb 10.7 L (14.0-18.0) g/dl Hct 31.2 L (42.0-52.0) % Plt Count 144 (130-400) K/uL BMP 04/17/23 05:49 Sodium 137 Potassium 3.2 L Chloride 101 Carbon Dioxide 27 BUN 7 Creatinine 0.50 L Glucose 130 H Calcium 7.3 L Diagnostic Findings Microbiology 04/15/23 10:24 Blood Aerobic Blood Culture - Preliminary Escherichia coli Anaerobic gram positive bacill Probable Enterococcus Gram negative bacilli 04/15/23 10:24 Blood Anaerobic Blood Culture - Preliminary Escherichia coli Anaerobic gram positive bacill Probable Enterococcus Gram negative bacilli 04/15/23 10:52 Blood Aerobic Blood Culture - Preliminary Escherichia coli 04/15/23 10:52 Blood Anaerobic Blood Culture - Preliminary Escherichia coli Anaerobic gram positive bacill Chest X-Ray 04/15/23 10:14 XR chest 1V not portable HISTORY: Sepsis COMPARISON: None. FINDINGS: The lungs are clear. Cardiac silhouette is normal in size. No pleural effusions. No pneumothorax. IMPRESSION: No acute process. ACT 112: Negative or not required by law. Electronically signed by: Lance Meier M.D. 04/15/2023 10:57 AM Abdomen/Pelvis CT 04/15/23 11:[address] WITH IV CONTRAST CT DOSE: 1157.91 mGy.cm HISTORY: Persistent nausea and vomiting. TECHNIQUE: Multiaxial CT images of the abdomen and pelvis were performed following the use of intravenous contrast. A dose lowering technique was utilized adhering to the principles of ALARA. COMPARISON STUDY: None. FINDINGS: A few punctate calcified granuloma seen within the lung bases. Small filling defect within the subsegmental branch of the right lower lobe pulmonary artery on image 30. Therefore, this likely represents a small pulmonary embolus. There are 2 small focal wedge-shaped density seen within the periphery of the left lower lobe the largest on image 58 measuring 2 cm. These may represent pulmonary infarcts. Scattered punctate sclerotic foci within the pelvic bones favor bone islands. Otherwise, no suspicious lytic or blastic osseous lesions. Mild hepatic steatosis. The main portal vein is patent. However, a few of the distal portal veins within the right hepatic lobe are thrombosed. In addition, there are scattered foci of portal venous gas identified within the right hepatic dome. The spleen, pancreas, adrenal glands, kidneys are unremarkable. No hydronephrosis. Normal caliber abdominal aorta with mild calcified plaque. The bladder is unremarkable. The prostate gland is mildly enlarged. There is focal thickening within the mid sigmoid colon with multiple diverticula. There is a large inflamed diverticulum with evidence for extraluminal gas consistent with microperforation and pericolonic fat stranding. No loculated fluid collections at this time to suggest an abscess. There are few small scattered foci of gas at the distal inferior mesenteric vein adjacent to the inflamed diverticulum/sigmoid colon. In addition, there is heterogeneous enhancement within the majority of the inferior mesenteric vein consistent with areas of thrombus. Therefore, in conjunction with the portal venous gas, these findings are concerning for an underlying ischemic colitis of the sigmoid colon. No dilated loops of bowel to suggest an obstruction. Normal appendix. IMPRESSION: 1. There is thickening of the sigmoid colon with associated microperforation and multiple inflamed diverticula. This has the appearance of an acute sigmoid diverticulitis. However, there is partial thrombosis of the majority of the inferior mesenteric vein with associated scattered foci of gas at the distal inferior mesenteric vein as well as portal venous gas identified in the right hepatic dome. Therefore, these findings are consistent with an ischemic colitis of the sigmoid colon. 2. There are few thrombosed distal branches of the right portal vein. 3. There is a small pulmonary embolus within the right lower lobe. There are 2 small peripheral wedge-shaped densities within the periphery of the left lower lobe likely representing pulmonary infarcts. 4. Additional findings as described above. ACT 112: Negative or not required by law. Electronically signed by: Lance Meier M.D. 04/15/2023 2:44 PM Medications Administered Home Medications Medication Instructions Recorded Confirmed Last Taken losartan 50 mg tablet 50 mg PO DAILY 01/12/20 04/15/23 04/13/23 simvastatin 40 mg tablet 40 mg PO DAILY 01/12/20 04/15/23 04/13/23 oxycodone-acetaminophen 5 mg-325 1 tab PO USEASDIRECTD PRN Pain 04/15/23 04/15/23 Unknown mg tablet Active Medications Generic Name Dose Route Start Last Admin Trade Name Freq PRN Reason Stop Dose Admin Heparin Sodium/Dextrose 25,000 units in 500 mls @ 30 mls/hr 04/15/23 15:30 04/17/23 06:59 Heparin Sodium/Dextrose IV 05/15/23 15:29 1,500 units/hr .[id number] RICARDO 30 mls/hr Titration Protocol 1,500 UNITS/HR Parenteral Electrolytes 1,000 mls @ 125 mls/hr 04/15/23 16:00 04/17/23 07:55 Plasma-Lyte A Ph 7.4 IV 05/15/23 15:59 125 mls/hr .Q8H RICARDO Administration Piperacillin Sod/Tazobactam 120 mls @ 30 mls/hr 04/15/23 22:00 04/17/23 09:37 Sod 4.5 gm/ Dextrose IV 04/25/23 21:59 Infused Q8H RICARDO Infusion Protocol Acetaminophen 1,000 mg in 100 mls @ 400 mls/hr 04/16/23 11:03 04/17/23 09:14 Ofirmev IV 04/19/23 11:02 Infused Q8H PRN Infusion Fever Vancomycin HCl 1,500 mg/ 530 mls @ 200 mls/hr 04/16/23 18:00 04/17/23 08:47 Sodium Chloride IV 04/30/23 17:59 Infused Q12H RICARDO Infusion Ondansetron HCl 4 mg 04/15/23 21:04 04/16/23 06:31 Ondansetron Inj 2 Mg/Ml 2 Ml Vial IV 05/15/23 21:03 4 mg Q6H PRN Administration Nausea And Vomiting
[2023-04-17] MEDS ORDERED: diphenhydrAMINE 50 MG/ML VIAL IV PRN (17:31)
[2023-04-17] MEDS ORDERED: KETOROLAC TROMETHAMINE 15 MG/ML VIAL IV ONE (22:15)
[2023-04-17] MEDS: LORazepam 2 MG/1 ML VIAL IV PRN (22:27)
[2023-04-18] MEDS: PLASMA-LYTE A 1,000 ML IV SCH ×3 (01:11→20:09)
[2023-04-18] MEDS ORDERED: VANCOMYCIN LEVEL ONE (05:00)
[2023-04-18 05:06] LABS: Basophils # (auto) 0.01 K/uL (0.00-0.20); Basophils % (auto) 0.1 %; Eosinophils # (auto) 0.01 K/uL (0.00-0.50); Eosinophils % (auto) 0.1 %; Hemoglobin 10.7 g/dl (14.0-18.0); Immature Granulocytes # (auto) 0.05 K/uL (0.01-0.20); Immature Granulocytes % (auto) 0.6 %; Lymphocytes # (auto) 0.66 K/uL (1.20-3.40); Lymphocytes % (auto) 8.4 %; Mean Corpuscular Hemoglobin 28.2 pg (25.0-34.0); Mean Corpuscular Hgb Conc 34.5 g/dL (32.0-36.0); Mean Corpuscular Volume 81.8 fL (80.0-100.0); Mean Platelet Volume 11.1 fL (9.4-12.4); Monocytes # (auto) 0.64 K/uL (0.11-0.59); Monocytes % (auto) 8.1 %; Neutrophils % (auto) 82.7 %; Platelet Count 147 K/uL (130-400); RDW Coefficient of Variation 13.9 % (11.5-14.5); RDW Standard Deviation 41.1 fL (36.4-46.3); Red Blood Count 3.79 M/uL (4.70-6.10); White Blood Count 7.87 K/ul (4.8-10.8)
[2023-04-18 05:10] LABS: BUN Creatinine Ratio 12.9 (10-20); Calcium 7.3 mg/dl (8.6-10.3); Creatinine Clr Calc Pharmacy 147.2 ml/min; Est GFR (African American) 134.1 ml/min; Est GFR (Non-African American) 115.7 ml/min; Potassium 3.3 mmol/L (3.5-5.1)
[2023-04-18] MEDS: ACETAMINOPHEN 1,000 MG/100 ML VIAL IV PRN (05:11)
[2023-04-18 05:21] LABS: Partial Thromboplastin Ratio 1.4
[2023-04-18] MEDS: PIPERACILLIN/TAZOBACTAM 4.5 GM in DEXTROSE 5% 100 ML IV SCH ×3 (05:59→21:27)
[2023-04-18] MEDS: VANCOMYCIN HCL 1,500 MG in SODIUM CHLORIDE 0.9% 500 ML IV SCH ×3 (05:59→21:27)
[2023-04-18] MEDS: HEPARIN SODIUM/DEXTROSE 25,000 UNITS/500 ML BAG IV SCH ×2 (06:26→06:27)
--- NOTE | 2023-04-18 07:23 | Hospitalist Progress Note ---
Date of Service April 18, 2023 Assessment & Plan (1) Acute diverticulitis: Plan: 48-year-old male with a past medical history of hypertension and hyperlipidemiahere for diverticulitis, polymicrobial bacteremia, ischemic colitis Sepsis with Polymicrobial Bacteremia 2/2 Acute diverticulitis with microperforation Cultures show polymicrobial bacteremia E. coli, C. Perfringens, Enterococcus ID consult: zosyn started 04/15 vanc started 04/16 clindamycin started 04/18 repeat bcx 04/17 showed gram negative rods Bcx 04/18 pending, continue daily blood cultures until negative Echo TTE: no evidence mass vegetation Currently hydrated with IVF. Fever control IV tylenol. NPO c diff panel negative trend cbc Acute Venous ischemic colitis: Plan: CT on admit: acute sigmoid diverticulitis. findings are consistent with an ischemic colitis of the sigmoid colon. There are few thrombosed distal branches of the right portal vein. repeat CT: Progressive ischemic colitis. There is also progressive gas within the inferior mesenteric vein which is almost completely thrombosed. initially stared on heparin drip, held in the setting of ex lap Surgery consult: ex lap possible bowel resection 04/18 Lactate 3.5 Consider Eliquis after discharge. continue IVF, NPO, IV pain control trend CMP, CBC Pulmonary emboli, thrombosis of inferior mesenteric vein, right portal vein, portosplenic conference,: Plan: possibly 2/2 immobilization s/p ankle surgery Initially on heparin drip, held for ex lap 04/18 hypercoag panel pending Eliquis sent to pharmacy for verification, he will need anticoagulation in outpatient setting Anemia last hbg 11.1 likely 2/2 ongoing infection continue to monitor in setting of recent surgery History of arthroplasty of right ankle: Plan: right ankle surgical repair 2 weeks ago consulted ortho Dr. Arguello, confirm ankle doing well unlikely source of bacteremia Hypertension: Plan: Losartan on hold given NPO FENa: NPO Code Status: Full DVT PPX: heparin on hold Dispo: Daniella Stokes D.O. PGY 3, FCM (2) Acute ischemic colitis: (3) History of arthroplasty of right ankle: (4) Pulmonary emboli: (5) Infarctions, pulmonary: (6) Hypertension: (7) E. coli sepsis: (8) Polymicrobial sepsis: Admission and Anticipated Discharge Date Admission Date: April 15, 2023 Supervising Physician Co-Signing Physician Notes I personally examined the patient and verified vazquez points of history and exam, discussed case, and agree with decision making and plan documented by Dr. Sahu. Today, patient developed rigors and chills with back pain, was tachycardic, with elevated lactate, and CT changes including progressive thickening of colon/rectum consistent with ischemic colitis, gas within IMV and adjacent to inflamed diverticulum, diffuse venous thrombosis. Patient taken to OR for exploratory laparotomy/washout by surgical team. ID added IV clindamycin (for clostridium) to vancomycin and pip/tazo for increased coverage of polymicrobial bacteremia with recommendation to change pip/tazo to meropenem if patient becomes hypotensive (due to concerns of pseudomonas on PCR). Coagulopathy panel pending. Monitor closely. Subjective Patient seen at bedside, noted lower back pain overnight treated with toradol, tylenol, continues to deny abd pain nausea vomiting fever, still has liquid stool. Continues to have low back pain radiating to buttocks. Agreed to try lidocaine patch. Patient states ortho saw him yesterday confirmed right leg looked well unlikely source of infection. Later in day received notification patient having worsening back pain 6/10, ordered morphine and CT A/P with contrast. Patient later developed rigors tachycardia 120's, new onset fever, taken to surgery for ex lap. Physical Exam Eyes: PERRL, conjunctivae normal, anicteric sclerae ENMT: external ear and nose normal, oropharynx normal Neck: trachea midline, no thyromegaly Respiratory: normal respiratory effort, lungs clear to auscultation Cardiovascular: RRR, no murmur, no edema Gastrointestinal (Abdomen): Inspection/Auscultation: abdomen normal to inspection Percussion/Palpation: abdomen soft; abdomen nontender Musculoskeletal: right foot in splint Skin: no rashes, warm and dry Neurologic: PERRL, EOMI, accommodation nl, no face palsy, no dysarthria Psychiatric: A+Ox3, euthymic affect Results & Data Results & Data Vital Signs (Past 12 Hours) Vital Signs Temp Pulse Pulse Resp BP BP Pulse Ox 04/18/23 04:05 37.4 C 78 16 125/78 95 04/17/23 23:43 67 04/17/23 22:43 37.1 C 74 125/85 95 09/06/23 19:44 36.7 C 73 16 148/84 H 97 O2 Del Method 04/18/23 04:05 Room Air 04/17/23 23:43 04/17/23 22:43 Room Air 04/17/23 19:44 Room Air Resident Activity Tracking Resident Involvement: Resident Care Provided Care Provided: Adult Hospital Medicine
--- NOTE | 2023-04-18 08:23 | Pharmacy Report ---
Pharmacy PK ABX Note - Date of Service April 18, 2023 - Assessment and Plan Assessment 04/18: * Random vancomycin level came back at ~6 mcg/ml - this correlates to AUC/OSBALDO <400, therefore will increase vancomycin dosing today. Patient continues on zosyn. 04/16: * 48 year old M started on Vancomycin today for treatment of bacteremia. Pertinent microbiologic data includes: positive blood cultures growing gram negative bacilli, gram positive bacilli and gram positive cocci in chains. Plan Vancomycin * Random level came back ~6 mcg/ml * Will increase to vancomycin 1500 mg iv q 8 hours - will repeat level tomorrow to ensure dosing therapeutic * Renal function remains stable. Awaiting further identification of blood cultures - PCR indicating PA, e coli, E faecium. Repeat blood cultures pending * ID continues to follow patient Pharmacy has transitioned to AUC monitoring for vancomycin. AUC/OSBALDO is the preferred PK/PD target and is associated with decreased risk of nephrotoxicity compared to traditional trough targets.
[2023-04-18] MEDS: LIDOCAINE 5% 1 PATCH TD SCH (09:26)
--- NOTE | 2023-04-18 11:27 | Surgery Progress Note ---
The patient has been seen and examined this am [facility] the surgical PA. I agree with the plan. Date of Service April 18, 2023 Assessment & Plan (1) Colitis: Plan: Patient reports he is feeling a little better than yesterday Denies abdominal pain/discomfort Has been NPO, will advance to sips and chips today and see how he fares Having bowel movements and passing flatus WBC 7.8 + blood cultures would recommend patient continue IV antibiotics and fluids which will defer to medicine to manage Admission and Anticipated Discharge Date Admission Date: April 15, 2023 Subjective Patient reports he is feeling a little better than yesterday Denies abdominal pain/discomfort Having bowel movements and passing flatus Review of Systems Constitutional: no fever, no chills and no sweats Respiratory: no dyspnea Cardiovascular: no chest pain Gastrointestinal: no abdominal pain, no nausea and no vomiting Musculoskeletal: + back pain (reports back pain from the hospital bed on left lower side ) Physical Exam Constitutional: well developed, cooperative and comfortable; no acute distress Respiratory: normal respiratory effort; no respiratory distress Cardiovascular: Rate/Rhythm: regular rate Gastrointestinal (Abdomen): Inspection/Auscultation: abdomen normal to inspection Percussion/Palpation: abdomen soft; abdomen nontender and no guarding Musculoskeletal: Right foot/ankle/lower extremity in a cast Results & Data Vital Signs (Past 12 Hours) Vital Signs Temp Pulse Pulse Resp BP Pulse Ox O2 Del Method 04/18/23 07:59 97.9 F 71 20 124/76 93 Room Air 04/18/23 04:05 99.3 F 78 16 125/78 95 Room Air 04/17/23 23:43 67 PG Care Time/CCT Total # of Minutes Spent Total Time Spent with Patient: Total time spent is greater than 50% in coordination of care (as documented) at patient's floor/unit and/or counseling patient: Coding Level of Care Code 65240 SUB INP/OBS CARE 09/05MIN Diagnoses Colitis K52.9
[2023-04-18] MEDS ORDERED: MoRPHine SULFATE 2 MG/ML CARP IV STA (11:52)
[2023-04-18 12:02] LABS: Partial Thromboplastin Ratio 1.4; Partial Thromboplastin Time 39.4 Seconds (21.0-31.0)
[2023-04-18] MEDS ORDERED: SODIUM CHLORIDE 0.9% 1,000 ML IV ONE (12:49)
[2023-04-18] MEDS ORDERED: ACETAMINOPHEN 1000 MG/100 ML IV IV ONE (12:52)
[2023-04-18] MEDS ORDERED: ACETAMINOPHEN 1,000 MG/100 ML VIAL IV STA (13:03)
--- NOTE | 2023-04-18 13:13 | Communication Note ---
Date of Service: April 18, 2023 Evaluated patient at bedside. Patient experiencing chills and rigors, appears ill and pale, tachycardic RRR, lungs CTAB, non tender abdomen. Has been having intermittent low back pain at lower lumbar/sacral level, non reproducible on exam. CT scan reordered in setting of ischemic colitis for concern of perforation. NS bolus ordered, lactate, CBC, CMP ordered. Patient currently on vancomycin and pip-tazo for microorganism bacteremia. Surgery team has been notified. Holding heparin in meantime.
[2023-04-18 13:38] LABS: Basophils # (auto) 0.02 K/uL (0.00-0.20); Basophils % (auto) 0.3 %; Eosinophils # (auto) 0.01 K/uL (0.00-0.50); Eosinophils % (auto) 0.1 %; Hemoglobin 11.1 g/dl (14.0-18.0); Immature Granulocytes # (auto) 0.04 K/uL (0.01-0.20); Immature Granulocytes % (auto) 0.6 %; Lymphocytes # (auto) 0.53 K/uL (1.20-3.40); Lymphocytes % (auto) 7.5 %; Mean Corpuscular Hemoglobin 27.8 pg (25.0-34.0); Mean Corpuscular Hgb Conc 33.6 g/dL (32.0-36.0); Mean Corpuscular Volume 82.7 fL (80.0-100.0); Mean Platelet Volume 11.5 fL (9.4-12.4); Monocytes # (auto) 0.12 K/uL (0.11-0.59); Monocytes % (auto) 1.7 %; Neutrophils % (auto) 89.8 %; Platelet Count 166 K/uL (130-400); RDW Coefficient of Variation 14.1 % (11.5-14.5); RDW Standard Deviation 42.5 fL (36.4-46.3); Red Blood Count 3.99 M/uL (4.70-6.10); White Blood Count 7.02 K/ul (4.8-10.8)
[2023-04-18 13:55] LABS: Albumin Level 2.9 gm/dl (3.4-5.0); BUN Creatinine Ratio 12.5 (10-20); Bilirubin,Total 1.3 mg/dl (0.2-1.0); Calcium 7.3 mg/dl (8.6-10.3); Creatinine Clr Calc Pharmacy 142.6 ml/min; Est GFR (African American) 132.3 ml/min; Est GFR (Non-African American) 114.2 ml/min; Globulin 2.9 gm/dl (2.5-4.0); Potassium 3.2 mmol/L (3.5-5.1); Total Protein 5.8 gm/dl (6.0-8.3)
[2023-04-18] MEDS ORDERED: OPTIRAY 320 100ml IV ONE (13:55)
[2023-04-18 13:59] LABS: Troponin I High Sensitivity 9.1 pg/ml (0-20)
--- NOTE | 2023-04-18 14:26 | CT Scan Report ---
ABDOMEN AND PELVIS CT WITH IV CONTRAST CT DOSE: 1246.67 mGy.cm HISTORY: mesenteric ischemia diverticulitis worse back pain TECHNIQUE: Multiaxial CT images of the abdomen and pelvis were performed following the use of intrave nous contrast. A dose lowering technique was utilized adhering to the principles of ALARA. COMPARISON STUDY: Abdomen and pelvis CT 04/15/2023. FINDINGS: The right lower lobe pulmonary emboli seen in the prior study are not clearly visualized. T race right pleural effusion is noted. There are few punctate calcified granulomas within the lung bas es. Peripheral wedge-shaped densities within the left lung base persist. This is nonspecific and coul d be due to pulmonary infarcts or atelectasis. Punctate sclerotic foci within the pelvic bones favor bone islands. No acute fractures. Thrombosed branches of the distal right portal vein at the right he patic dome again noted. Small amount of portal venous gas seen within the left hepatic lobe. The gall bladder is unremarkable. The pancreas, spleen, and adrenal glands are within normal limits. No hydron ephrosis. Bilateral perinephric edema has progressed. No retroperitoneal lymphadenopathy. Normal adair keyona abdominal aorta. There is focal nonocclusive thrombus at the portosplenic confluence best in imag e 148. This is new from the prior study. There is progressive thrombus and gas involving the entire i nferior mesenteric vein. Mesenteric fat stranding has progressed. There is progressive gas within the branches of the inferior mesenteric vein. Thickening of the sigmoid colon and rectum has progressed consistent with an ischemic colitis. Questionable small foci of extraluminal gas adjacent to the infl mile sigmoid diverticulum on image 319 may also be located within the inferior mesenteric vein. A sup erimposed acute diverticulitis with microperforation would be difficult to exclude. Normal bladder. N o dilated loops of bowel to suggest an obstruction. Normal appendix. IMPRESSION: 1. Progressive thickening of the sigmoid colon and rectum consistent with ischemic colitis. There is also progressive gas within the inferior mesenteric vein which is almost completely thrombosed. 2. Small foci of extraluminal gas adjacent to the inflamed sigmoid colon diverticulum could be within the inferior mesenteric vein branches. A small focus of microperforation in the setting of an acute diverticulitis could also have a similar appearance. 3. Portal venous gas again noted consistent with underlying bowel ischemia. Thrombosed branches of th e distal right portal vein, unchanged. There has been interval development of nonocclusive thrombus a t the portosplenic confluence. 4. Additional findings as described above. ACT 112: Negative or not required by law. Electronically signed by: Lance Meier M.D. 04/18/2023 2:25 PM
--- NOTE | 2023-04-18 15:53 | Anesthesiology Consultation ---
Date of Service April 18, 2023 Assessment & Plan (1) Encounter for pre-operative examination: Chart Review Chart Review: Acceptable Risk for Surgery (urgent procedure) History Surgery Operation Date: 04/18/23 12:45 Proposed Procedures p Exploratory Laparoscopy Possible Bowel Resection, Possible Colostomy - Radha Aguilar DO Height/Weight Height: 5 ft 10 in Weight: 87.3 kg Allergies Allergy/AdvReac Type Severity Reaction Status Date / Time No Known Allergies Allergy Unverified 01/12/20 15:30 Medications Home Medications Medication Instructions Recorded Confirmed Last Taken losartan 50 mg tablet 50 mg PO DAILY 01/12/20 04/15/23 04/13/23 simvastatin 40 mg tablet 40 mg PO DAILY 01/12/20 04/15/23 04/13/23 oxycodone-acetaminophen 5 mg-325 1 tab PO USEASDIRECTD PRN Pain 04/15/23 04/15/23 Unknown mg tablet apixaban 5 mg tablet (Eliquis) 5 mg PO BID 30 days #60 tabs 04/18/23 Unknown Active Medications Generic Name Dose Route Start Last Admin Trade Name Freq PRN Reason Stop Dose Admin Heparin Sodium/Dextrose 25,000 units in 500 mls @ 32 mls/hr 04/15/23 15:30 04/18/23 12:10 Heparin Sodium/Dextrose IV 05/15/23 15:29 Infused .[id number] RICARDO Titration Protocol 1,600 UNITS/HR Parenteral Electrolytes 1,000 mls @ 125 mls/hr 04/15/23 16:00 04/18/23 09:27 Plasma-Lyte A Ph 7.4 IV 05/15/23 15:59 125 mls/hr .Q8H RICARDO Administration Piperacillin Sod/Tazobactam 120 mls @ 30 mls/hr 04/15/23 22:00 04/18/23 14:06 Sod 4.5 gm/ Dextrose IV 04/25/23 21:59 30 mls/hr Q8H RICARDO Administration Protocol Vancomycin HCl 1,500 mg/ 530 mls @ 200 mls/hr 04/18/23 14:00 04/18/23 14:07 Sodium Chloride IV 05/02/23 13:59 200 mls/hr Q8H RICARDO Administration Lidocaine 1 patch 04/18/23 09:00 04/18/23 09:26 Lidocaine 5% 1 Patch TD 05/18/23 08:59 1 patch QAM RICARDO Administration Lorazepam 0.25 mg 04/17/23 17:33 04/17/23 22:27 Lorazepam 2 Mg/1 Ml Vial IV 05/17/23 17:32 0.25 mg ONE PRN Administration sleep Ondansetron HCl 4 mg 04/15/23 21:04 04/16/23 06:31 Ondansetron Inj 2 Mg/Ml 2 Ml Vial IV 05/15/23 21:03 4 mg Q6H PRN Administration Nausea And Vomiting Past Medical History Medical History (Updated 04/18/23 @ 15:53 by Dexter Garcia MD) Acute ischemic colitis Hypertension Polymicrobial sepsis Pulmonary emboli Past Family History Family History Mother Breast cancer Grandmother (Maternal) Myocardial infarction Denies family history of Ovarian cancer Prostate cancer Colorectal cancer Past Surgical History Surgical History History of arthroplasty of right ankle Social History Smoking Status: Never smoker Do You Dip or Chew Tobacco: Yes alcohol intake frequency: a few times a month Hx Substance Use: No Physical Exam Vital Signs Last Vital Signs Temp 38.2 C H 04/18/23 15:20 Pulse 108 H 04/18/23 15:20 Resp 20 04/18/23 15:20 BP 122/67 04/18/23 15:20 Pulse Ox 94 04/18/23 15:20 O2 Del Method Room Air 04/18/23 15:20 Testing Laboratory Results 04/18/23 13:04 04/18/23 13:04 PT 11.5 Seconds (9.0-12.0) 04/15/23 10:24 INR 1.1 (0.9-1.1) 04/15/23 10:24 APTT 39.4 Seconds (21.0-31.0) H 04/18/23 11:15 Urine Color Weber 04/15/23 14:36 Urine Appearance Cloudy (Clear) A 04/15/23 14:36 Urine pH 5.5 (4.5-7.5) 04/15/23 14:36 Ur Specific [place] 1.015 (1.000-1.030) 04/15/23 14:36 Urine Protein Trace (Negative) H 04/15/23 14:36 Urine Glucose (UA) Negative (Negative) 04/15/23 14:36 Urine Ketones 3+ (Negative) H 04/15/23 14:36 Urine Nitrite Negative (Negative) 04/15/23 14:36 Ur Leukocyte Esterase Negative (Negative) 04/15/23 14:36 Urine WBC (Auto) 1-5 /hpf (0-5) 04/15/23 14:36 Urine RBC (Auto) 0-4 /hpf (0-4) 04/15/23 14:36 U Hyaline Cast (Auto) 5-10 /lpf (0-5) H 04/15/23 14:36 U Epithel Cells (Auto) 0-5 /lpf (0-5) 04/15/23 14:36 Urine Bacteria (Auto) Negative (Negative) 04/15/23 14:36 04/17/23 14:35 Aerobic Blood Culture - Preliminary Blood No growth in Aerobic bottle after 24 hours. Anaerobic Blood Culture - Preliminary No growth in Anaerobic bottle after 24 hours. 04/17/23 14:35 Aerobic Blood Culture - Preliminary Blood No growth in Aerobic bottle after 24 hours. Anaerobic Blood Culture - Preliminary No growth in Anaerobic bottle after 24 hours. 04/15/23 10:24 Aerobic Blood Culture - Preliminary Blood Escherichia coli Anaerobic gram positive bacill Probable Enterococcus Gram negative bacilli Anaerobic Blood Culture - Preliminary Escherichia coli Anaerobic gram positive bacill Probable Enterococcus Gram negative bacilli 04/15/23 10:52 Aerobic Blood Culture - Preliminary Blood Escherichia coli Anaerobic Blood Culture - Preliminary Escherichia coli Anaerobic gram positive bacill Electrocardiogram Date: 04/15/23 Findings: + NSST changes and + ST @ (157) Chest X-Ray Date: 04/15/23 Findings: + NAD
[2023-04-18] MEDS ORDERED: DEXAMETHASONE SOD INJ 4 MG/ML VIAL ONE (16:08)
[2023-04-18] MEDS ORDERED: PROPOFOL IV EMULSION 10 MG/ML 20 ML VIAL IV ONE (16:08)
[2023-04-18] MEDS ORDERED: ONDANSETRON INJ 2 MG/ML 2 ML VIAL ONE (16:08)
[2023-04-18] MEDS ORDERED: fentaNYL citrate PF 100 MCG/2 ML VIAL ONE (16:08)
[2023-04-18] MEDS ORDERED: LIDOCAINE 2% 2 ML VIAL/AMP(20MG/ML) INFIL ONE ×2 (16:08)
[2023-04-18] MEDS ORDERED: MIDAZOLAM HCL 1 MG/ML 2ML VIAL ONE (16:08)
--- NOTE | 2023-04-18 16:08 | Orthopedic Consultation ---
Date of Consultation April 17, 2023 Assessment & Plan (1) Right ankle pain: Recommendation: There is no evidence to support the right ankle as a source of sepsis and bacteremia. Right ankle completely benign and progressing according to postoperative course status post open reduction internal fixation displaced trimalleolar ankle fracture dislocation 2 weeks ago. Likely source of bacteremia, sepsis is due to gut translocation from the acute diverticulitis noted by Dr. Mc. Continue nonweightbearing right lower extremity. Maintain splint intact. Ice and elevate right ankle. Patient to follow-up with Dr. Arguello in 4 weeks with new x-rays of the right ankle 3 views. Thank you for the opportunity to consult in the care of this patient. Ankit Arguello DO [facility] [phone] (2) Encounter for other orthopedic aftercare: (3) Acute ischemic colitis: (4) Pulmonary emboli: History of Present Illness Reason for Consultation: Bacteremia and septicemia with diverticulitis in the setting of recent open reduction internal fixation right ankle fracture 2 weeks prior. Attending Physician: Jessica Orosco DO History of Present Illness This pleasant 48-year-old gentleman was seen on 04/17/2023 at the request of the medical and surgical teams after he presented to [facility] with 3 to 4-day history of nausea, vomiting, lack of appetite, rigors, fevers and chills. Patient was noted to be septic and was admitted to the hospitalist service. Patient was also noted to have small emboli in the colon and in the lower extremity and the lung. Patient was placed on aspirin 81 mg daily for VTE prophylaxis which he had been taking since postoperative day #1 after his right ankle surgery. Patient had no complaints of ankle pain after the first 3 to 4 days postop. Question arises whether possible infection in the ankle and orthopedics was consulted to evaluate. Allergies Allergy/AdvReac Type Severity Reaction Status Date / Time No Known Allergies Allergy Unverified 01/12/20 15:30 Home Medications Medication Instructions Recorded Confirmed Type losartan 50 mg tablet 50 mg PO DAILY 01/12/20 04/15/23 History simvastatin 40 mg tablet 40 mg PO DAILY 01/12/20 04/15/23 History oxycodone-acetaminophen 5 mg-325 1 tab PO USEASDIRECTD PRN Pain 04/15/23 04/15/23 History mg tablet apixaban 5 mg tablet (Eliquis) 5 mg PO BID 30 days #60 tabs 04/18/23 Rx Patient History Medical History (Updated 04/18/23 @ 16:04 by Ankit Arguello DO) Acute ischemic colitis Hypertension Polymicrobial sepsis Pulmonary emboli Surgical History History of arthroplasty of right ankle Family History Mother Breast cancer Grandmother (Maternal) Myocardial infarction Denies family history of Ovarian cancer Prostate cancer Colorectal cancer Social History Smoking Status: Never smoker Second Hand Exposure: No; Do You Dip or Chew Tobacco: Yes; Hx Substance Use: No Preferred Language: Nauruan Communication Ability: Effective Visual Impairment: No Limitations Hearing Ability: Normal Gynecology Teacher Required: No Beliefs That Will Affect Care: None Current Living Situation: Spouse Feels Safe at Home: Yes Assistive Devices: Crutches Physical Exam Physical Exam: present at bedside. Constitutional: Somewhat ill-appearing. Eyes: PERRL, conjunctivae normal, anicteric sclerae ENMT: external ear and nose normal, oropharynx normal Neck: trachea midline, no thyromegaly Respiratory: normal respiratory effort, lungs clear to auscultation Cardiovascular: RRR, no murmur, no edema Musculoskeletal: The right lower extremity splint was removed with the assistance of the patient's nurse. The incisions were noted to be completely intact with Monocryl and Dermabond. No evidence of erythema, streaking, abscess, fluctuance, tenderness or edema at the incision sites. Skin is noted to be wrinkled due to decreased edema of the right ankle. Compartments are soft. No purulence whatsoever. Excellent active and passive range of motion of the ankle without crepitation. Minimal tenderness at the incision sites and at the hardware insertion sites right ankle. Homans' sign negative. Distal neurovascular status intact with intact sensation. Dorsalis pedis and posterior tibial pulses 2/4 bilateral. Skin: no rashes, warm and dry Neurologic: PERRL, EOMI, accommodation nl, no face palsy, no dysarthria Psychiatric: A+Ox3, euthymic affect Lymphatic: no cervical or axillary lymphadenopathy Results & Data Vital Signs (Past 12 Hours) Vital Signs Temp Pulse Resp BP Pulse Ox O2 Del Method 04/18/23 15:20 38.2 C H 108 H 20 122/67 94 Room Air 04/18/23 14:34 39.1 C H 04/18/23 12:05 36.7 C 76 19 127/83 96 Room Air 04/18/23 07:59 36.6 C 71 20 124/76 93 Room Air 04/18/23 04:05 37.4 C 78 16 125/78 95 Room Air Laboratory Results Laboratories and microbiology results reviewed.
[2023-04-18] MEDS ORDERED: BUPIVACAINE/EPINEPHRINE 0.5% MPF 1:200,000 30 ML VIAL ONE (16:31)
[2023-04-18] MEDS ORDERED: ALBUMIN HUMAN 5% 12.5 GM/250 ML VIAL IV ONE (16:33)
--- NOTE | 2023-04-18 16:40 | Infectious Disease Progress Nt ---
Date of Service April 18, 2023 Assessment & Plan (1) History of arthroplasty of right ankle: (2) Acute ischemic colitis: (3) Acute diverticulitis: Plan This is a 48-year-old male with a past medical history of hypertension,hyperlipidemia recent R ankle fracture sp hardware 2 weeks ago presents with fevers, rigors, nausea, and vomiting for 3 days. Since surgery he has be offloading and not moving much. He has had decreased po intake. He has been taking colace for decreased BM while on pain medication. In the ED he was febrile with temp 39.1 and tachycardic ( HR 155). Labs noted for wbc 4.66k ( up to 10k), procal 0.68. Covid, infl, rsv testing negative. CTAB showed thickening of the sigmoid colon with associated microperforation and multiple inflamed diverticula as well as partial thrombosis of the majority of the inferior mesenteric vein with associated scattered foci of gas at the distal inferior mesenteric vein as well as portal venous gas identified in the right hepatic dome consistent with an ischemic colitis of the sigmoid colon.There was also few thrombosed distal branches of the right portal vein as well as small pulmonary embolus within the right lower lobe and 2 small peripheral wedge- shaped densities within the periphery of the left lower lobe c/w pulmonary infarcts. He was started on hep gtt Admission Bc grew GNR, GPC in chains and GPR. BCID identified EColi, PSA and E . Faecium. He was started on Zosyn He received a dose of vanco today. He denies abdominal pain, diarrhea, illicit drug use, pain at recent R foot/ankle sx site. He feels well overall. ID consulted for polymicrobial bacteremia. Micro Bc 04/15 4/4 bottles (ecoli) ,1/4 GNR, 3/4 bottles ( clost perf), 1/4 bottles ( Enterococcus sp) BCID + PSA,Ecoli, E Feacium( VRE not detected) BC 04/17 !/4 bottles GNR Abx vanco 04/16-ongoing zosyn 04/15-ongoing Clindamycin 04/18- ongoing #Polymicrobial bacteremia #Possible sigmoid diverticulitis with ? microperforation #Possible ischemic colitis with partially thrombosed IMV and distal branches of RPV #Pulmonary Embolism and Infarct # H/o recent R Trimalleolar fractures s/p hardware placement 2 weeks ago # Distant h/o Left foot crush injury with hardware Source of polymicrobial bacteremia is likely the abdomen Gut translocation from ischemic bowel , colitis and/or diverticulitis with microperforation are likely On admission he had abnormal CtAB findings,but no abdominal pain with benign exam, . The BCID identified PSA,Ecoli, E Feacium( VRE not detected)and Clostridium Perfringes He was started on IV vancomycin and zosyn. His fevers resolved after 24 hours of admission but recurred on 04/18 with a T max 39.1. He complained of feeling unwell with chills. Repeat CTAB on 04/18 showed progressive thickening of the sigmoid colon and rectum consistent with ischemic colitis with progressive gas within the inferior mesenteric vein which is almost completely thrombosed.There was a Small foci of extraluminal gas adjacent to the inflamed sigmoid colon diverticulum. Microperforation in the setting of an acute diverticulitis could be possible He has newly placed hardware in the R ankle, but he denies pain at site. Foot is in a cast so I could not review the surgical site. I doubt GI organisms would originate from this site, but persistent bacteremia could lead to seeding of the hardware. He denies illicit drug use.A TTE completed 04/18 shows no mass or valve vegetations. Repeat BC from 04/17 is growing GNR in / bottles. Surgery is following. . Recommendations; -Today the GPR finalized as Clostridium Perfringens, which zosyn should cover. -Continue vancomycin per pharm protocol. .Since no VRE detected on biofire, the E.Feacium should be covered with Vanco. -Continue Zosyn for coverage of PSA, ecoli and Clostridium . There is a PSA on biofire, but no resist genes reported (PSA not yet been ided on cx), if hypotensive,, change zosyn to Meropenem. -I added Clindamycin 900 mg iv q8hrs today for additional coverage for Clostridium sincet fevers recurred and CTAB worsening. -Source control and reevaluation by surgery as he has clinically decompensated on abx therapy -FOllow up ID and sensi of the additional GNR on 04/15 BC -Follow up repeat BC . ID will continue to follow.D/W team Priscila Haji MD, MPH Infectious Disease [facility], ID Division Call [phone] with questions e Admission and Anticipated Discharge Date Admission Date: April 15, 2023 Subjective This patient recommendation is based on a telemedicine consult request which was completed asynchronously through chart review and information provided by the primary physician. The patient was not seen or examined today. The evaluation is consultative in nature and all patient care and treatment decisions can either be accepted or rejected by the patient's primary hospital-based treating physician using their own independent medical judgment for their patient. Time Spent Reviewing Chart: 21 - 30 minutes GPR identified as clostridum perfringens. Fevers recurred today after being afebrile for 24 hours. . T max 39 He complained of feeling ill with chills. wbc 7.[address] abx shows progressive thickening of the sigmoid colon and rectum consistent with ischemic colitis. . A small focus of microperforation in the setting of an acute diverticulitis could also have a similar appearance. He is on IV zosyn/ vanc. Clinda added Results & Data Vital Signs (Past 12 Hours) Vital Signs Temp Pulse Resp BP BP Pulse Ox O2 Del Method 04/18/23 16:33 38.1 C H 107 H 18 123/64 93 Room Air 04/18/23 15:20 38.2 C H 108 H 20 122/67 94 Room Air 04/18/23 14:34 39.1 C H 04/18/23 12:05 36.7 C 76 19 127/83 96 Room Air 04/18/23 07:59 36.6 C 71 20 124/76 93 Room Air Laboratory Results Short CBC 04/18/23 04/18/23 Range/Units 04:34 13:04 WBC 7.87 7.02 (4.8-10.8) K/ul Hgb 10.7 L 11.1 L (14.0-18.0) g/dl Hct 31.0 L 33.0 L (42.0-52.0) % Plt Count 147 166 (130-400) K/uL BMP 04/18/23 04/18/23 04:34 13:04 Sodium 140 139 Potassium 3.3 L 3.2 L Chloride 103 102 Carbon Dioxide 31 28 BUN 8 8 Creatinine 0.62 0.64 Glucose 116 H 115 H Calcium 7.3 L 7.3 L Liver Function 04/18/23 Range/Units 13:04 Total Bilirubin 1.3 H (0.2-1.0) mg/dl AST 21 (13-39) U/L ALT 24 (7-52) U/L Alkaline Phosphatase 86 (34-104) U/L Albumin 2.9 L (3.4-5.0) gm/dl Diagnostic Findings Microbiology 04/15/23 10:24 Blood Aerobic Blood Culture - Preliminary Escherichia coli Clostridium perfringens Probable Enterococcus Gram negative bacilli 04/15/23 10:24 Blood Anaerobic Blood Culture - Preliminary Escherichia coli Clostridium perfringens Probable Enterococcus Gram negative bacilli 04/15/23 10:52 Blood Aerobic Blood Culture - Preliminary Escherichia coli 04/15/23 10:52 Blood Anaerobic Blood Culture - Preliminary Escherichia coli Clostridium perfringens 04/17/23 14:35 Blood Aerobic Blood Culture - Preliminary No growth in Aerobic bottle after 24 hours. 04/17/23 14:35 Blood Anaerobic Blood Culture - Preliminary No growth in Anaerobic bottle after 24 hours. 04/17/23 14:35 Blood Aerobic Blood Culture - Preliminary No growth in Aerobic bottle after 24 hours. 04/17/23 14:35 Blood Anaerobic Blood Culture - Preliminary No growth in Anaerobic bottle after 24 hours. Abdomen/Pelvis CT 04/18/23 11:[address] WITH IV CONTRAST CT DOSE: 1246.67 mGy.cm HISTORY: mesenteric ischemia diverticulitis worse back pain TECHNIQUE: Multiaxial CT images of the abdomen and pelvis were performed following the use of intravenous contrast. A dose lowering technique was utilized adhering to the principles of ALARA. COMPARISON STUDY: Abdomen and pelvis CT 04/15/2023. FINDINGS: The right lower lobe pulmonary emboli seen in the prior study are not clearly visualized. Trace right pleural effusion is noted. There are few punctate calcified granulomas within the lung bases. Peripheral wedge-shaped densities within the left lung base persist. This is nonspecific and could be due to pulmonary infarcts or atelectasis. Punctate sclerotic foci within the pelvic bones favor bone islands. No acute fractures. Thrombosed branches of the distal right portal vein at the right hepatic dome again noted. Small amount of portal venous gas seen within the left hepatic lobe. The gallbladder is unremarkable. The pancreas, spleen, and adrenal glands are within normal limits. No hydronephrosis. Bilateral perinephric edema has progressed. No retroperitoneal lymphadenopathy. Normal caliber abdominal aorta. There is focal nonocclusive thrombus at the portosplenic confluence best in image 148. This is new from the prior study. There is progressive thrombus and gas involving the entire inferior mesenteric vein. Mesenteric fat stranding has progressed. There is progressive gas within the branches of the inferior mesenteric vein. Thickening of the sigmoid colon and rectum has progressed consistent with an ischemic colitis. Questionable small foci of extraluminal gas adjacent to the inflamed sigmoid diverticulum on image 319 may also be located within the inferior mesenteric vein. A superimposed acute diverticulitis with microperforation would be difficult to exclude. Normal bladder. No dilated loops of bowel to suggest an obstruction. Normal appendix. IMPRESSION: 1. Progressive thickening of the sigmoid colon and rectum consistent with ischemic colitis. There is also progressive gas within the inferior mesenteric vein which is almost completely thrombosed. 2. Small foci of extraluminal gas adjacent to the inflamed sigmoid colon diverticulum could be within the inferior mesenteric vein branches. A small focus of microperforation in the setting of an acute diverticulitis could also have a similar appearance. 3. Portal venous gas again noted consistent with underlying bowel ischemia. Thrombosed branches of the distal right portal vein, unchanged. There has been interval development of nonocclusive thrombus at the portosplenic confluence. 4. Additional findings as described above. ACT 112: Negative or not required by law. Electronically signed by: Lance Meier M.D. 04/18/2023 2:25 PM
--- NOTE | 2023-04-18 16:48 | XCELERA ---
[id number]___[id number]
[2023-04-18] MEDS ORDERED: PROMETHAZINE HCL 12.5 MG in SODIUM CHLORIDE 0.9% 50 ML IV PRN (16:57)
[2023-04-18] MEDS ORDERED: KETOROLAC 30 MG/ML VIAL IV PRN (16:57)
[2023-04-18] MEDS ORDERED: ATROPINE SULFATE 0.1 MG/ML 10ML SYR IV PRN (16:57)
[2023-04-18] MEDS ORDERED: ONDANSETRON INJ 2 MG/ML 2 ML VIAL IV PRN (16:57)
[2023-04-18] MEDS ORDERED: HYDROmorphone INJ 1 MG/ML SYRINGE IV PRN (16:57)
[2023-04-18] MEDS ORDERED: CLINDAMYCIN/D5W 900 MG/50 ML BAG IV SCH (17:00)
[2023-04-18] MEDS: 600mg Q8H IV SCH (17:30)
[2023-04-18] MEDS: 300mg Q8H IV SCH (17:30)
[2023-04-18] MEDS ORDERED: SUGAMMADEX SODIUM 200 MG/2 ML VIAL IV ONE (18:10)
--- NOTE | 2023-04-18 19:19 | Operative Report ---
PG Post Operative Report Pre & Post Diagnosis Operation Date: 04/18/23 12:45 Pre-Op Diagnosis: ISCHEMIC COLITIS/DIVERTICULITIS PE, ABD PAIN Post-Op Diagnosis: ISCHEMIC COLITIS/DIVERTICULITIS PE, ABD PAIN I identified the patient and participated in the time-out.: Yes Procedure Operation Date: 04/18/23 12:45 Actual Procedures p Exploratory Laparoscopy, Washout and Drain insertion(Not Applicable) - Radha Aguilar DO Surgeon Radha Aguilar DO Bone Plant Supervisor Dr. Dent Estimated Blood Loss 5 Findings Consistent with Post-Op Diagnosis A small area of mildly inflamed sigmoid colon with adhesions to the left paracolic gutter Specimens None Drains 15 English NIKOLAI Anesthesia Type General Complications None Indications Persistent fever/sepsis unknown origin CT concerning for evolving sigmoid ischemic colitis Description of Procedure The patient was placed on the operating room table in supine position. SCDs were applied to bilateral lower extremities. The patient was connected to oxygen and cardiac monitoring. He was administered general anesthesia and a secure airway was obtained. An OG tube and Cobos catheter were temporarily placed. The abdomen was prepped and draped in typical sterile fashion. A timeout was conducted. A small stab incision was made just superior to the umbilicus and the fascia was elevated with a towel clamp. A Veress needle was used to gain access to the intra-abdominal space. Pneumoperitoneum was established to a goal pressure of 15 mmHg. A 5 mm laparoscope was inserted with direct visualization using a 5 mm Visiport. Noted in the left lower quadrant towards the pelvis was a small amount of thin greenish-brownish tinged fluid that was without purulence or feculent material. This fluid was suctioned and sent to the microbiology lab for Gram stain and culture. A 5 mm trocar was inserted at the right lower quadrant and suprapubic areas to allow for a more thorough inspection. Graspers were used to inspect the colon for any areas of ischemia and none were identified. The colon wall appeared healthy. There was no significant inflammatory response or reaction around the colon. The omentum was nice and soft and was not appearing to respond to inflammation. There was a small area of mild adhesions to the left paracolic gutter at the very lateral and almost posterior aspect of a small section of sigmoid colon. This area was inspected and there was no purulent material, sign of perforation or necrotic ischemic bowel noted. The right and left upper quadrants were inspected with the laparoscope and there were no areas of inflammation or apparent abscess formation noted. With no intra-abdominal findings to explain the source of the patient's persistent fever and ongoing sepsis, the left lower quadrant was irrigated, suctioned and a 15 English NIKOLAI drain was inserted through the port to the right of the suprapubic area. Pneumoperitoneum was evacuated, all instruments and trocars were removed. The remaining two 5 mm trocar incision sites were closed with 4-0 Vicryl suture at the level of the skin. Dermabond was used to seal the incisions. The patient tolerated the procedure well. The Cobos catheter and OG tube were removed. The patient was awakened from anesthesia, the secure airway was removed and he was transferred to recovery in stable condition. I attest to the content of the Intraoperative Record and any orders documented therein. Any exceptions are noted below.
--- NOTE | 2023-04-18 20:04 | Anesthesiology Progress Note ---
Date of Service April 18, 2023 Anesthesia Post Procedure Vital Signs Vital Signs: Temp Pulse Pulse Resp BP BP Pulse Ox 04/18/23 19:05 87 20 115/77 95 04/18/23 18:55 95 H 17 113/74 98 04/18/23 18:45 100 H 15 112/73 97 04/18/23 19:25 89 22 112/75 94 04/18/23 19:15 37.3 C 91 H 23 110/76 93 04/18/23 18:38 36.6 C 105 H 12 113/73 96 04/18/23 16:33 38.1 C H 107 H 18 123/64 93 04/18/23 15:20 38.2 C H 108 H 20 122/67 94 04/18/23 14:34 39.1 C H 04/18/23 12:05 36.7 C 76 19 127/83 96 04/18/23 07:59 36.6 C 71 20 124/76 93 04/18/23 04:05 37.4 C 78 16 125/78 95 04/17/23 23:43 67 04/17/23 22:43 37.1 C 74 125/85 95 O2 Del Method O2 Flow Rate 04/18/23 19:05 Oxymask 2 04/18/23 18:55 Oxymask 4 04/18/23 18:45 Oxymask 4 04/18/23 19:25 Nasal Cannula 2 04/18/23 19:15 Nasal Cannula 2 04/18/23 18:38 Oxymask 6 04/18/23 16:33 Room Air 04/18/23 15:20 Room Air 04/18/23 14:34 04/18/23 12:05 Room Air 04/18/23 07:59 Room Air 04/18/23 04:05 Room Air 04/17/23 23:43 04/17/23 22:43 Room Air Pain Intensity Right Ankle: Pain Intensity: 5 Transfer of Care Handoff Completed per policy Notes Mental Status: alert / awake / arousable Patient Amnestic to Procedure: Yes Nausea / Vomiting: adequately controlled Pain: adequately controlled Airway Patency, RR, SpO2: stable & adequate BP & HR: stable & adequate Hydration State: stable & adequate Anesthetic Complications: no major complications apparent
[2023-04-18] MEDS: ACETAMINOPHEN 325 MG TAB PO PRN (20:08)
[2023-04-18] MEDS: LORazepam 2 MG/1 ML VIAL IV PRN (21:37)
[2023-04-18 22:09] LABS: Partial Thromboplastin Ratio 0.9; Partial Thromboplastin Time 25.9 Seconds (21.0-31.0)
[2023-04-19] MEDS: ACETAMINOPHEN 325 MG TAB PO PRN ×3 (00:30→14:48)
[2023-04-19] MEDS: 300mg Q8H IV SCH ×3 (01:09→16:32)
[2023-04-19] MEDS: 600mg Q8H IV SCH ×3 (01:09→16:32)
[2023-04-19] MEDS ORDERED: MoRPHine SULFATE 2 MG/ML CARP IV STA ×2 (01:25→15:16)
[2023-04-19] MEDS: PLASMA-LYTE A 1,000 ML IV SCH ×3 (03:23→20:06)
[2023-04-19] MEDS: VANCOMYCIN HCL 1,500 MG in SODIUM CHLORIDE 0.9% 500 ML IV SCH ×2 (05:41→14:43)
[2023-04-19] MEDS: PIPERACILLIN/TAZOBACTAM 4.5 GM in DEXTROSE 5% 100 ML IV SCH ×3 (05:41→21:31)
[2023-04-19] MEDS ORDERED: oxyCODONE HCL IR 5 MG TAB (IMMEDIATE RELEASE) PO STA (05:48)
[2023-04-19 06:46] LABS: Hematocrit (blood only) 28.7 % (42.0-52.0); Hemoglobin 9.5 g/dl (14.0-18.0); Mean Corpuscular Hemoglobin 27.1 pg (25.0-34.0); Mean Corpuscular Hgb Conc 33.1 g/dL (32.0-36.0); Mean Platelet Volume 11.9 fL (9.4-12.4); Platelet Count 123 K/uL (130-400); RDW Coefficient of Variation 14.6 % (11.5-14.5); RDW Standard Deviation 43.9 fL (36.4-46.3); White Blood Count 7.94 K/ul (4.8-10.8)
[2023-04-19 07:00] LABS: Albumin Globulin Ratio 0.9 (0.9-2); Albumin Level 2.5 gm/dl (3.4-5.0); BUN Creatinine Ratio 18.6 (10-20); Bilirubin,Total 1.3 mg/dl (0.2-1.0); Creatinine Clr Calc Pharmacy 154.7 ml/min; Est GFR (African American) 136.8 ml/min; Est GFR (Non-African American) 118.1 ml/min; Globulin 2.7 gm/dl (2.5-4.0); Potassium 3.8 mmol/L (3.5-5.1); Total Protein 5.2 gm/dl (6.0-8.3)
--- NOTE | 2023-04-19 07:50 | Hospitalist Progress Note ---
Date of Service April 19, 2023 Assessment & Plan (1) Acute diverticulitis: Plan: 48-year-old male with a past medical history of hypertension and hyperlipidemiahere for diverticulitis, polymicrobial bacteremia, ischemic colitis Sepsis with Polymicrobial Bacteremia 2/2 Acute diverticulitis with microperforation Cultures show polymicrobial bacteremia E. coli, C. Perfringens, Enterococcus ID consult: zosyn started 04/15 vanc started 04/16 clindamycin started 04/18 repeat bcx 04/17 showed gram negative rods Bcx 04/18 without growth to date Echo TTE: no evidence mass vegetation Currently hydrated with IVF. Fever control IV tylenol c diff panel negative trend cbc Acute Venous ischemic colitis: Plan: CT on admit: acute sigmoid diverticulitis. findings are consistent with an ischemic colitis of the sigmoid colon. There are few thrombosed distal branches of the right portal vein. repeat CT: Progressive ischemic colitis. There is also progressive gas within the inferior mesenteric vein which is almost completely thrombosed. Surgery consult: ex lap 04/18 Lactate 3.5 04/18 with repeat 1.6 initially stared on heparin drip, held in the setting of ex lap. Hemoglobin stable this evening, plan to restart repeat h/h pending for 00:00 to ensure stability in hemoglobin after restarting Consider Eliquis after discharge. trend CMP, CBC Pulmonary emboli, thrombosis of inferior mesenteric vein, right portal vein, portosplenic conference,: Plan: possibly 2/2 immobilization s/p ankle surgery Initially on heparin drip, held for ex lap 04/18- resume as per above hypercoag panel pending Eliquis sent to pharmacy for verification, he will need anticoagulation in outpatient setting Anemia continue to monitor in setting of recent surgery repeat H/H at 00:00 after restarting heparin drip History of arthroplasty of right ankle: Plan: right ankle surgical repair 2 weeks ago consulted ortho Dr. Arguello, confirm ankle doing well unlikely source of bacteremia Hypertension: Plan: Losartan on hold FENa: clear liquid Code Status: Full DVT PPX: heparin Dispo: PCU (2) Acute ischemic colitis: (3) History of arthroplasty of right ankle: (4) Pulmonary emboli: (5) Infarctions, pulmonary: (6) Hypertension: (7) E. coli sepsis: (8) Polymicrobial sepsis: Admission and Anticipated Discharge Date Admission Date: April 15, 2023 Supervising Physician Co-Signing Physician Notes Attending attestation Pt seen and examined in concert with Dr. Kirkpatrick. In agreement with the documented findings as noted in the resident documentation with any exceptions or additions as noted here. At time of AM examination, reports mild lower abdominal discomfort and ankle pain. On examination, S1/S2 nl RRR no MCG. CTAB. Abd ND, mildly TTP lower abd and operative sites but healing well BS+ve Sepsis w/ bacteremia with acute diverticulitis - ID consult, general surgery consult - continue abx therapy and follow repeat cultures. Trend CBC Ischemic colitis, venous, acute in the setting of pulmonary emboli and other thrombi - restart heparin drip with stable H/H postoperatively this afternoon, monitor CBC, CMP. IVF and pain control with dilaudid and morphine. To transition to DOAC on discharge. Else see resident documentation as noted. Subjective Pt seen at bedside this morning. Complaining of right foot pain post-op. Also notes pain with urination. This afternoon had some increased lower abdominal pain around site of surgical drain. Review of Systems Review of Systems: As per above Physical Exam Physical Exam: Constitutional: well-appearing, no acute distress HEENT: NCAT, no conjunctival injection CV: regular rhythm, no murmur appreciated, extremities well-perfused, no LE edema Resp: CTABL, no wheezes/rales/rhonchi appreciated, no increased work of breathing GI: soft, nondistended, nontender, BS normoactive MSK: no gross deformities appreciated Skin: warm, dry, no rash appreciated Neuro: alert, oriented, no focal neurologic deficit appreciated Results & Data Results & Data Vital Signs (Past 12 Hours) Vital Signs Temp Pulse Pulse Resp BP BP Pulse Ox 04/19/23 04:31 36.4 C L 72 16 107/68 98 04/18/23 20:06 85 04/18/23 22:00 84 04/18/23 23:02 36.8 C 77 16 116/75 97 04/18/23 20:41 04/18/23 20:17 36.9 C 89 15 109/71 93 O2 Del Method O2 Flow Rate 04/19/23 04:31 Nasal Cannula 2.5 04/18/23 20:06 04/18/23 22:00 04/18/23 23:02 Nasal Cannula 2.5 04/18/23 20:41 Nasal Cannula 2 04/18/23 20:17 Nasal Cannula 2 Resident Activity Tracking Resident Involvement: Resident Care Provided Care Provided: Adult Hospital Medicine
[2023-04-19] MEDS: LIDOCAINE 5% 1 PATCH TD SCH (08:28)
--- NOTE | 2023-04-19 11:30 | Surgery Progress Note ---
I saw and examined this patient. I agree with the plan Date of Service April 19, 2023 Assessment & Plan (1) Acute ischemic colitis: Plan: POD 1 Exploratory Laparoscopy, abdominal washout, drain placement (2) H/O exploratory laparotomy: Plan: POD 1 Exploratory Laparoscopy, abdominal washout, drain placement Patient reports mild abdominal discomfort Dermabond on two port sites CDI, NIKOLAI drain serious fluid 150cc in 24 hours Reports urinary discomfort with voiding from surgical pinzon placement, and increase in right ankle pain Has tolerated a clear liquid diet this AM , will advance per medicine Recheck H/H this evening if stable, may restart heparin gtt from a surgical stand point WBC 7.9 , Has been fever free since 04/18/23 1900, continue IV antibx. Blood cultures and surgical cultures pending. VSS Patient seen with Dr. Aguilar, Dr. Barajas covering weekend Admission and Anticipated Discharge Date Admission Date: April 15, 2023 Subjective Patient reports he is feeling better than yesterday. Denies and no documented fevers since yesterday. Reports increase in right ankle pain, mild abdominal discomfort, and mild burning with voiding from post operative pinzon placement. Has tolerated clear liquid diet this AM. Review of Systems Constitutional: no fever, no chills and no sweats Respiratory: no dyspnea Gastrointestinal: + abdominal pain (mild ); no bloating, no nausea and no vomiting Has complaint of lower rectal pain Musculoskeletal: reports increase in right ankle pain Physical Exam Constitutional: well developed, cooperative and comfortable; no acute distress Respiratory: normal respiratory effort; no respiratory distress Cardiovascular: Rate/Rhythm: regular rate Gastrointestinal (Abdomen): Inspection/Auscultation: + abdominal surgical incision (two port sites covered with dermabond C/D/I) and + abdominal surgical drain present (draining serious ); abdomen not distended Percussion/Palpation: abdomen soft Musculoskeletal: wearing right lower extremity foot /ankle cast Results & Data Vital Signs (Past 12 Hours) Vital Signs Temp Pulse Pulse Resp BP BP Pulse Ox 04/19/23 10:00 74 04/19/23 10:00 04/19/23 08:11 97.7 F 70 18 110/70 94 04/19/23 04:31 97.5 F L 72 16 107/68 98 O2 Del Method O2 Flow Rate 04/19/23 10:00 04/19/23 10:00 Room Air 04/19/23 08:11 Room Air 09/08/23 04:31 Nasal Cannula 2.5 PG Care Time/CCT Total # of Minutes Spent Total Time Spent with Patient: Total time spent is greater than 50% in coordination of care (as documented) at patient's floor/unit and/or counseling patient: Coding Level of Care Code 27084 Post Operative Follow-Up Diagnoses Acute ischemic colitis K55.039 H/O exploratory laparotomy Z98.890
[2023-04-19 13:02] LABS: INR 1.1 (0.9-1.1); Partial Thromboplastin Time 26.8 Seconds (21.0-31.0)
--- NOTE | 2023-04-19 13:14 | Pharmacy Report ---
Pharmacy PK ABX Note - Date of Service April 19, 2023 - Assessment and Plan Assessment 04/19: * Reviewed vancomycin random level (11.8mcg/mL)- current regimen estimated to achieve an AUC/OSBALDO 400-600. Continue vancomycin 1500mg Q8H. Blood culture 04/16 growing PA, e coli, E faecium, clostridium perfringens-sensitivities pending. Repeat blood culture 04/17 growing gram negative bacilli x1-identification and sensitivities pending. Repeat blood cultures 04/18 pending. Peritoneal fluid culture 04/18- no growth to date. 04/18: * Random vancomycin level came back at ~6 mcg/ml - this correlates to AUC/OSBALDO <400, therefore will increase vancomycin dosing today. Patient continues on zosyn. 04/16: * 48 year old M started on Vancomycin today for treatment of bacteremia. Pertinent microbiologic data includes: positive blood cultures growing gram negative bacilli, gram positive bacilli and gram positive cocci in chains. Plan Vancomycin * Random level 11.8 @1202 * Continue vancomycin 1500 mg iv q 8 hours - repeat level as clinically indicated * Renal function remains stable. Daily serum creatinine ordered. Further vancomycin level as clinically indicated. * ID continues to follow patient Pharmacy has transitioned to AUC monitoring for vancomycin. AUC/OSBALDO is the preferred PK/PD target and is associated with decreased risk of nephrotoxicity compared to traditional trough targets.
[2023-04-19] MEDS ORDERED: MoRPHine SULFATE 2 MG/ML CARP ONE (15:19)
--- NOTE | 2023-04-19 15:52 | Infectious Disease Progress Nt ---
Date of Service April 19, 2023 Assessment & Plan (1) History of arthroplasty of right ankle: (2) Acute ischemic colitis: (3) Acute diverticulitis: Plan This is a 48-year-old male with a past medical history of hypertension,hyperlipidemia recent R ankle fracture sp hardware 2 weeks ago presents with fevers, rigors, nausea and vomiting for 3 days. Since surgery he has be offloading and not moving much. He has had decreased po intake. He has been taking colace for decreased BM while on pain medication. In the ED he was febrile with temp 39.1 and tachycardic ( HR 155). Labs noted for wbc 4.66k ( up to 10k), procal 0.68. Covid, infl, rsv testing negative. CTAB showed thickening of the sigmoid colon with associated microperforation and multiple inflamed diverticula as well as partial thrombosis of the majority of the inferior mesenteric vein with associated scattered foci of gas at the distal inferior mesenteric vein as well as portal venous gas identified in the right hepatic dome consistent with an ischemic colitis of the sigmoid colon.There was also few thrombosed distal branches of the right portal vein as well as small pulmonary embolus within the right lower lobe and 2 small peripheral wedge- shaped densities within the periphery of the left lower lobe c/w pulmonary infarcts. He was started on hep gtt Admission Bc grew GNR, GPC in chains and GPR. BCID identified EColi, PSA and E . Faecium. He was started on Zosyn He received a dose of vanco. He denied abdominal pain, diarrhea, illicit drug use, pain at recent R foot/ankle sx site. He felt well overall. ID consulted for polymicrobial bacteremia. Micro Bc 04/15 4/4 bottles (ecoli) ,1/4 PSA, 3/4 bottles ( clost perf), 1/4 bottles ( Enterococcus sp) BCID + PSA,Ecoli, E Feacium( VRE not detected) BC 04/17 1/ bottles GNR BC 04/18 pending Intraop fluid cx 04/18 NGtd Abx vanco 04/16-ongoing zosyn 04/15-ongoing Clindamycin 04/18- ongoing #Polymicrobial bacteremia #?Sigmoid diverticulitis with ? 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 . The BCID identifiedPSA,Ecoli, E Feacium( VRE not detected). He also grew Clostridium Perfringens in BC. He was started on IV vancomycin and zosyn. His fevers resolved after 24 hours of admission but recurred on 04/18 with a T max 39.1. He felt unwell with chills, abd pain and fever.. Repeat CTAB on 04/18 showed progressive thickening of the sigmoid colon and rectum consistent with ischemic colitis with progressive gas within the inferior mesenteric vein which was almost completely thrombosed.There was a Small foci of extraluminal gas adjacent to the inflamed sigmoid colon diverticulum. Microperforation in the setting of an acute diverticulitis could be possible. Repeat BC from 04/17 is growing GNR in 1/4 bottles. Clindamycin was added to abx He underwent a exploratory laparoscopy, Washout and Drain insertion on 04/18, He was found to have a small area of mildly inflamed sigmoid colon with adhesions to the left paracolic gutter. Noted in the left lower quadrant towards the pelvis was a small amount of thin greenish-brownish tinged fluid that was without purulence or feculent material. This fluid was sent for g/s and cx. Results pending. There no purulent material, sign of perforation or necrotic ischemic bowel noted. He has newly placed hardware in the R ankle, but he denies pain at site. Foot is in a cast so I could not review the surgical site. I doubt GI organisms would originate from this site, but persistent bacteremia could lead to seeding of the hardware.He denies illicit drug use. ATTE completed 04/18 shows no mass or valve vegetations.. . Recommendations; -Discontinued vancomycin -Continue Zosyn for coverage of PSA, E feacium , ecoli and Clostridium . -Continue Clindamycin 900 mg iv q8hrs for naother 24 hours for additional coverage for Clostridium coverage then dc ( total of 48 hours) -FOllow up ID and sensi of the additional GNR on 04/15 BC -Follow up repeat BC 04/18 - Follow up intraop fluid cx 04/18. ID will continue to follow. Priscila Haji MD, MPH Infectious Disease [facility], [facility] Call [phone] with questions Admission and Anticipated Discharge Date Admission Date: April 15, 2023 Subjective Subsequent visit was provided via telemedicine using two-way real-time interactive telecommunication between the patient and the telemedicine provider. For the duration of the visit, the provider was performing the assessment from a different facility than the patient. This includesuse of bluetooth stethoscope forauscultationperformed by the telepresenter that the telemedicine provider can hear if described in the physical exam. [employer] contact information: Please call [facility] Center [phone]. (Phone Number For Physician Use Only) After establishing a telemedicine visit, patient was: Patient was verified with two unique identifiers and Patient/authorized rep acknowledged consent and understanding Time Spent with Patient: Subsequent => 25 min Underwent Exploratory Laparoscopy, Washout and Drain insertion on 04/18 Afebrile since surgery Complains of abdominal pain post procedure After sx noted some discomfort in L ankle sx site. Physical Exam Constitutional: NAd, lying in bed Eyes: Anicteric sclera Respiratory: No increased work of breathing Gastrointestinal (Abdomen): Distended. TTP. + Drain in place with reddish serous fluid.Has dermabond on port sites Results & Data Vital Signs (Past 12 Hours) Vital Signs Temp Pulse Pulse Resp BP BP Pulse Ox 04/19/23 12:02 36.6 C 73 17 101/65 94 04/19/23 10:00 74 04/19/23 10:00 04/19/23 08:11 36.5 C 70 18 110/70 94 04/19/23 04:31 36.4 C L 72 16 107/68 98 O2 Del Method O2 Flow Rate 04/19/23 12:02 Room Air 04/19/23 10:00 04/19/23 10:00 Room Air 04/19/23 08:11 Room Air 04/19/23 04:31 Nasal Cannula 2.5 Laboratory Results Short CBC 04/19/23 04/19/23 Range/Units 05:37 16:29 WBC 7.94 9.43 (4.8-10.8) K/ul Hgb 9.5 L 10.2 L (14.0-18.0) g/dl Hct 28.7 L 29.9 L (42.0-52.0) % Plt Count 123 L 141 (130-400) K/uL BMP 04/19/23 05:37 Sodium 140 Potassium 3.8 Chloride 104 Carbon Dioxide 31 BUN 11 Creatinine 0.59 L Glucose 124 H Calcium 7.0 L Liver Function 04/19/23 Range/Units 05:37 Total Bilirubin 1.3 H (0.2-1.0) mg/dl AST 21 (13-39) U/L ALT 23 (7-52) U/L Alkaline Phosphatase 97 (34-104) U/L Albumin 2.5 L (3.4-5.0) gm/dl Diagnostic Findings Microbiology 04/17/23 14:35 Blood Aerobic Blood Culture - Preliminary Gram negative bacilli 04/17/23 14:35 Blood Anaerobic Blood Culture - Preliminary No growth in Anaerobic bottle after 48 hours. 04/17/23 14:35 Blood Aerobic Blood Culture - Preliminary No growth in Aerobic bottle after 48 hours. 04/17/23 14:35 Blood Anaerobic Blood Culture - Preliminary No growth in Anaerobic bottle after 48 hours. 04/15/23 10:52 Blood Aerobic Blood Culture - Final Escherichia coli 04/15/23 10:52 Blood Anaerobic Blood Culture - Final Escherichia coli Clostridium perfringens Probable jose gram neg bacilli 04/15/23 10:24 Blood Aerobic Blood Culture - Final Escherichia coli Clostridium perfringens Enterococcus faecium Pseudomonas aeruginosa 04/15/23 10:24 Blood Anaerobic Blood Culture - Final Escherichia coli Clostridium perfringens Enterococcus faecium Pseudomonas aeruginosa Probable jose gram neg bacilli 04/18/23 Unknown Peritoneal Fluid Gram Stain - Final 04/18/23 Unknown Peritoneal Fluid Aerobic and Anaerobic Culture - Preliminary No growth to date. Medications Administered Home Medications Medication Instructions Recorded Confirmed Last Taken losartan 50 mg tablet 50 mg PO DAILY 01/12/20 04/15/23 04/13/23 simvastatin 40 mg tablet 40 mg PO DAILY 01/12/20 04/15/23 04/13/23 oxycodone-acetaminophen 5 mg-325 1 tab PO USEASDIRECTD PRN Pain 04/15/2304/15 Unknown mg tablet apixaban 5 mg tablet (Eliquis) 5 mg PO BID 30 days #60 tabs 04/18/23 Unknown Active Medications Generic Name Dose Route Start Last Admin Trade Name Mike PRN Reason Stop Dose Admin Acetaminophen 650 mg 04/18/23 11:47 04/19/23 14:48 Acetaminophen 325 Mg Tab PO 05/18/23 11:46 650 mg Q4H PRN Administration pain/fever Parenteral Electrolytes 1,000 mls @ 125 mls/hr 04/15/23 16:00 04/19/23 12:24 Plasma-Lyte A Ph 7.4 IV 05/15/23 15:59 125 mls/hr .Q8H RICARDO Administration Piperacillin Sod/Tazobactam 120 mls @ 30 mls/hr 04/15/23 22:00 04/19/23 14:43 Sod 4.5 gm/ Dextrose IV 04/25/23 21:59 30 mls/hr Q8H RICARDO Administration Protocol Vancomycin HCl 1,500 mg/ 530 mls @ 200 mls/hr 04/18/23 14:00 04/19/23 17:22 Sodium Chloride IV 05/02/23 13:59 Infused Q8H RICARDO Infusion Clindamycin Phosphate 300 mg in 50 mls @ 100 mls/hr 04/18/23 17:00 04/19/23 17:21 Cleocin/D5w IV 05/02/23 16:59 Infused Q8H RICARDO Infusion Clindamycin Phosphate 600 mg in 50 mls @ 100 mls/hr 04/18/23 17:00 04/19/23 17:22 Cleocin/D5w IV 05/02/23 16:59 Infused Q8H RICARDO Infusion Lidocaine 1 patch 04/18/23 09:00 04/19/23 08:28 Lidocaine 5% 1 Patch TD 05/18/23 08:59 Not Given QAM RICARDO Lorazepam 0.25 mg 04/17/23 17:33 04/18/23 21:37 Lorazepam 2 Mg/1 Ml Vial IV 05/17/23 17:32 0.25 mg ONE PRN Administration sleep Miscellaneous 1 each 04/18/23 21:00 04/18/23 20:17 Remove Lidoderm Patch N/A 05/18/23 20:59 1 each DAILY@2100 RICARDO Administration Ondansetron HCl 4 mg 04/15/23 21:04 04/16/23 06:31 Ondansetron Inj 2 Mg/Ml 2 Ml Vial IV 05/15/23 21:03 4 mg Q6H PRN Administration Nausea And Vomiting
[2023-04-19] MEDS ORDERED: HYDROmorphone INJ 0.5 MG/0.5 ML SYR IV STA ×2 (16:21→21:17)
[2023-04-19 16:49] LABS: Basophils # (auto) 0.01 K/uL (0.00-0.20); Basophils % (auto) 0.1 %; Hematocrit (blood only) 29.9 % (42.0-52.0); Hemoglobin 10.2 g/dl (14.0-18.0); Immature Granulocytes # (auto) 0.05 K/uL (0.01-0.20); Immature Granulocytes % (auto) 0.5 %; Lymphocytes % (auto) 8.5 %; Mean Corpuscular Hemoglobin 28.3 pg (25.0-34.0); Mean Corpuscular Hgb Conc 34.1 g/dL (32.0-36.0); Mean Corpuscular Volume 83.1 fL (80.0-100.0); Monocytes # (auto) 0.42 K/uL (0.11-0.59); Monocytes % (auto) 4.5 %; Neutrophils # (auto) 8.15 K/uL (1.40-6.50); Neutrophils % (auto) 86.4 %; Platelet Count 141 K/uL (130-400); RDW Coefficient of Variation 14.7 % (11.5-14.5); RDW Standard Deviation 45.2 fL (36.4-46.3); White Blood Count 9.43 K/ul (4.8-10.8)
[2023-04-19] MEDS ORDERED: Heparin IV Adult Wt-Based Standard WITH Bolus Protocol IV STA (17:43)
[2023-04-19] MEDS ORDERED: HEPARIN SOD (PORCINE) 1000 UNIT/ML IV ONE (18:15)
[2023-04-19] MEDS: HEPARIN SODIUM/DEXTROSE 25,000 UNITS/500 ML BAG IV SCH (18:20)
[2023-04-19 18:33] LABS: INR 1.1 (0.9-1.1); Partial Thromboplastin Ratio 0.9; Partial Thromboplastin Time 26.2 Seconds (21.0-31.0); Prothrombin Time 12.1 Seconds (9.0-12.0)
[2023-04-19] MEDS: LORazepam 2 MG/1 ML VIAL IV PRN (23:18)
[2023-04-20 00:48] LABS: Hematocrit (blood only) 29.3 % (42.0-52.0); Hemoglobin 9.9 g/dl (14.0-18.0)
[2023-04-20] MEDS: 600mg Q8H IV SCH ×2 (01:02→09:35)
[2023-04-20] MEDS: 300mg Q8H IV SCH ×2 (01:02→09:35)
[2023-04-20] MEDS: PLASMA-LYTE A 1,000 ML IV SCH ×2 (01:03→11:16)
[2023-04-20] MEDS ORDERED: HYDROmorphone INJ 0.5 MG/0.5 ML SYR IV STA ×3 (01:09→05:50)
[2023-04-20 01:15] LABS: Partial Thromboplastin Ratio 1.3
--- NOTE | 2023-04-20 01:27 | Communication Note ---
Date of Service: April 20, 2023 9:08pm received notification patient complaining of abd pain 6/10. Patient states he has not had a bowel movement since the ex lap. On exam patient on room air, no fevers noted HR RR wnl, pain primarily in lower abd near incision site on palpation, abd soft nondistended, abd drain containing clear serous fluid. Discussed with patient ongoing concern for mesenteric ischemia, however during this evaluation still low suspicion for perforation. Ordered dilaudid 0.25mg IV. H&H and lactate pending for midnight. 1:03am again received notification patient complaining of abd pain 8/10. Patient states it feels similar to the pain earlier in the evening. Patient on room air no fevers noted HR RR wnl, pain primarily in lower abd near incision site on p alpation, abd soft nondistended, abd drain containing clear serous fluid. Hbg 9.9 down from 10.1 low suspicion bleed, lactate 0.9 low suspicion ischemia. Discussed with patient signs and symptoms of ischemia including his fevers and rigors, however low suspicion of perforation at this time. Ordered dilaudid 0.25mg IV. Possible that resuming diet and constipation may be contributing to abd pain. Will continue to monitor. 3:21am again received notification patient complaining of abd pain 8/10. Patient states it continues to feel similar to his previous pain. Patient on room air no fevers noted HR RR wnl, pain primarily in lower abd on palpation to suprapubic region and LLQ, abd soft nondistended, abd drain containing clear serous fluid. Given the increasing frequency of his pain despite dilaudid will order CT A/P with IV contrast and place patient on strict NPO. Ordered dilaudid 0.25mg IV. Given the location of his thrombi in inferior mesenteric vein on previous imaging and his ongoing diverticulitis, wonder if this could be suppurative thrombophlebitis/pyelophlebitis, concern possible future liver involvement. Will repeat lactate in morning. CT A/P per my read interval development of right pulmonary effusion. Progression of perinephric edema. Possible progression of mesenteric fat stranding. Increased gas noted within colon. Abd drain in place
[2023-04-20] MEDS ORDERED: ACETAMINOPHEN 1,000 MG/100 ML VIAL IV PRN (03:36)
[2023-04-20] MEDS ORDERED: OPTIRAY 320 100ml IV ONE (03:58)
[2023-04-20] MEDS: PIPERACILLIN/TAZOBACTAM 4.5 GM in DEXTROSE 5% 100 ML IV SCH ×2 (05:42→14:39)
[2023-04-20 06:23] LABS: Hematocrit (blood only) 29.1 % (42.0-52.0); Mean Corpuscular Hemoglobin 27.5 pg (25.0-34.0); Mean Corpuscular Hgb Conc 34.4 g/dL (32.0-36.0); Mean Corpuscular Volume 79.9 fL (80.0-100.0); Platelet Count 174 K/uL (130-400); RDW Coefficient of Variation 14.6 % (11.5-14.5); RDW Standard Deviation 42.5 fL (36.4-46.3); Red Blood Count 3.64 M/uL (4.70-6.10); White Blood Count 12.37 K/ul (4.8-10.8)
[2023-04-20 06:50] LABS: Albumin Globulin Ratio 0.9 (0.9-2); Albumin Level 2.3 gm/dl (3.4-5.0); BUN Creatinine Ratio 18.6 (10-20); Bilirubin,Total 0.9 mg/dl (0.2-1.0); Calcium 6.7 mg/dl (8.6-10.3); Est GFR (African American) 136.8 ml/min; Est GFR (Non-African American) 118.1 ml/min; Globulin 2.7 gm/dl (2.5-4.0); Potassium 2.9 mmol/L (3.5-5.1)
[2023-04-20 06:52] LABS: Partial Thromboplastin Ratio 1.2; Partial Thromboplastin Time 34.1 Seconds (21.0-31.0)
[2023-04-20] MEDS ORDERED: Nursing to Pharmacy Communication SCH ×2 (07:00→09:31)
--- NOTE | 2023-04-20 07:10 | CT Scan Report ---
CT SCAN OF THE ABDOMEN AND PELVIS WITH IV CONTRAST CLINICAL HISTORY: Venous ischemic colitis. COMPARISON STUDY: Abdominal CT scans dated 04/18/2023 and 04/15/2023. TECHNIQUE: Following the IV administration of 91 cc of Optiray 320, CT scan of the abdomen and pelvi s is performed from the lung bases to the proximal femora. Images are reviewed in the axial, sagittal , and coronal planes. IV contrast was administered without complication. A dose lowering technique wa s utilized adhering to the principles of ALARA. CT DOSE: 1548.56 mGy.cm FINDINGS: Lung bases: The heart is normal in size and without pericardial effusion. There are small pleural eff usions with dependent consolidation. These have increased in size from previous. Liver: The contrast-enhanced liver is normal in size, contour, and attenuation. There is no intrahepa tic biliary ductal dilatation. Hepatic and portal vasculature: Foci of peripheral thrombus within the intrahepatic right portal vein are similar to previous. These are best seen on images #69 (segment VII) and image #83 (segment VIII ). The main and central portal veins are patent. The hepatic veins appear clear. Portal venous gas se en previously has resolved. Nonocclusive thrombus at the portosplenic confluence is similar to previo us. Again seen is near complete thrombosis of the inferior mesenteric vein which contains foci of int raluminal gas and surrounding inflammation. There is extensive thrombosis seen involving peripheral b ranches of the inferior mesenteric vein which is similar to previous. There may be a colovenous fistu la between a branch of the inferior mesenteric vein and a sigmoid diverticulum seen on images #[id number] 6. Gallbladder: Unremarkable. Spleen: Normal in size and attenuation. Pancreas: Unremarkable. Adrenal glands: Unremarkable. Kidneys: The contrast enhanced kidneys are normal in size and without hydronephrosis. The kidneys enh ance symmetrically. Abdominal vasculature: The abdominal aorta is normal in course and caliber noting mild atheroscleroti c calcification. Bowel: There is moderate sigmoid diverticulosis. Pericolonic inflammation likely represents a combina tion of ischemic colitis and diverticulitis. No organized drainable fluid collection is seen to sugge st abscess. No bowel obstruction is seen. The appendix is well-visualized and normal. Peritoneum: A surgical drain is in place from a right pelvic approach. The tip is coiled in the left upper pelvis. There is trace perisplenic ascites. There is fluid within the paracolic gutters and in the presacral region. Tiny foci of intraperitoneal free air in the pelvis have largely resolved. Ther e are tiny focus of extradural gas seen adjacent to diverticula in the left pelvis (image #335). Ther e is gas within or adjacent to mesenteric venous branches in the central upper pelvis on image #263. This is similar to previous. Lymphadenopathy: There are numerous prominent subcentimeter retroperitoneal lymph nodes, as well as p rominent pericolonic lymph nodes in the pelvis. These are likely reactive. Pelvic viscera: The bladder, prostate, and seminal vesicles are normal as visualized. Skeletal structures: No lytic or blastic lesions are seen. Soft tissues: Body wall edema has increased from previous. IMPRESSION: 1. Moderate sigmoid diverticulosis with inflammation around the rectosigmoid. This likely represents a combination of ischemic colitis and diverticulitis. 2. No organized fluid collection is seen to suggest abscess. 3. There are tiny foci of intraperitoneal free air in the pelvis. These have significantly decreased from previous. 4. Again seen is near complete thrombosis of the inferior mesenteric vein with a large amount of intr aluminal gas and surrounding inflammation. A branch of the inferior mesenteric vein appears to commun icate with a sigmoid diverticulum, and although rare a colovenous fistula must be considered. Surgica l evaluation is advised. 5. Nonocclusive thrombus at the portosplenic confluence is unchanged. 6. Peripheral foci of portal venous thrombus in the right hepatic lobe are again noted. Intrahepatic portal venous gas seen previously has resolved. 7. There are small pleural effusions with dependent consolidation. These have increased in size from previous. There is also increasing body wall edema. 8. A surgical drain in the pelvis is new from previous. 9. Additional findings as above. ACT 112: Negative or not required by law. Electronically signed by: Suleman Gloria M.D. 04/20/2023 7:07 AM
[2023-04-20 08:17] LABS: Partial Thromboplastin Ratio 1.2; Partial Thromboplastin Time 34.5 Seconds (21.0-31.0)
--- NOTE | 2023-04-20 09:05 | Hospitalist Progress Note ---
Date of Service April 20, 2023 Assessment & Plan (1) Acute diverticulitis: Plan: 48-year-old male with a past medical history of hypertension and hyperlipidemiahere for diverticulitis, polymicrobial bacteremia, ischemic colitis Sepsis with Polymicrobial Bacteremia 2/2 Acute diverticulitis with microperforation Cultures show polymicrobial bacteremia E. coli, C. Perfringens, Enterococcus ID consult: zosyn started 04/15 vanc started 04/16 clindamycin started 04/18 repeat bcx 04/17 showed gram negative rods Bcx 04/18 without growth to date Echo TTE: no evidence mass vegetation Currently hydrated with IVF. Fever control IV tylenol c diff panel negative trend cbc Acute Venous ischemic colitis: Plan: CT on admit: acute sigmoid diverticulitis. findings are consistent with an ischemic colitis of the sigmoid colon. There are few thrombosed distal branches of the right portal vein. repeat CT: Progressive ischemic colitis. There is also progressive gas within the inferior mesenteric vein which is almost completely thrombosed. Surgery consult: ex lap 04/18 Lactate 3.5 04/18 with repeat 1.6 initially stared on heparin drip, held in the setting of ex lap. Hemoglobin stable this evening, plan to restart repeat h/h pending for 00:00 to ensure stability in hemoglobin after restarting Consider Eliquis after discharge. trend CMP, CBC Pulmonary emboli, thrombosis of inferior mesenteric vein, right portal vein, portosplenic conference,: Plan: possibly 2/2 immobilization s/p ankle surgery Initially on heparin drip, held for ex lap 04/18- resume as per above hypercoag panel pending Eliquis sent to pharmacy for verification, he will need anticoagulation in outpatient setting Anemia continue to monitor in setting of recent surgery repeat H/H at 00:00 after restarting heparin drip History of arthroplasty of right ankle: Plan: right ankle surgical repair 2 weeks ago consulted ortho Dr. Arguello, confirm ankle doing well unlikely source of bacteremia Hypertension: Plan: Losartan on hold FENa: clear liquid Code Status: Full DVT PPX: heparin Dispo: PCU (2) Acute ischemic colitis: (3) History of arthroplasty of right ankle: (4) Pulmonary emboli: (5) Infarctions, pulmonary: (6) Hypertension: (7) E. coli sepsis: (8) Polymicrobial sepsis: Admission and Anticipated Discharge Date Admission Date: April 15, 2023 Results & Data Results & Data Vital Signs (Past 12 Hours) Vital Signs Temp Pulse Pulse Resp BP BP Pulse Ox 04/20/23 07:53 36.7 C 75 18 136/81 92 04/20/23 04:20 37.0 C 77 18 135/81 92 04/19/23 22:00 67 04/19/23 22:43 36.7 C 68 20 121/77 94 O2 Del Method 04/20/23 07:53 Room Air 04/20/23 04:20 Room Air 04/19/23 22:00 04/19/23 22:43 Room Air Resident Activity Tracking Resident Involvement: Resident Care Provided Care Provided: Adult Hospital Medicine
[2023-04-20] MEDS ORDERED: HEPARIN SOD (PORCINE) 1000 UNIT/ML IV ONE (09:45)
[2023-04-20] MEDS: LIDOCAINE 5% 1 PATCH TD SCH (09:45)
[2023-04-20] MEDS: ACETAMINOPHEN 325 MG TAB PO PRN (09:49)
[2023-04-20] MEDS: POTASSIUM CHLORIDE / WTR 10 MEQ/100 ML PLCT IV SCH ×6 (09:50→15:43)
[2023-04-20] MEDS ORDERED: HYDROmorphone INJ 0.5 MG/0.5 ML SYR IV PRN (10:18)
[2023-04-20] MEDS: HEPARIN SODIUM/DEXTROSE 25,000 UNITS/500 ML BAG IV SCH (11:17)
--- NOTE | 2023-04-20 11:25 | Electrocardiogram Report ---
Test Reason : Blood Pressure : / mmHG Vent. Rate : 077 BPM Atrial Rate : 077 BPM P-R Int : 156 ms QRS Dur : 102 ms QT Int : 422 ms P-R-T Axes : 052 017 031 degrees QTc Int : 477 ms Normal sinus rhythm Low voltage QRS Borderline ECG When compared with ECG of 15-APR-2023 10:16, Vent. rate has decreased BY 80 BPM Questionable change in QRS duration Confirmed by Jose Mercado ([id number]) on 04/20/2023 11:25:27 AM Referred By: REFERRED SELF Confirmed By:Jose Mercado
[2023-04-20] MEDS ORDERED: HYDROmorphone INJ 0.5 MG/0.5 ML SYR IV ONE (15:33)
--- NOTE | 2023-04-20 15:35 | Discharge Summary ---
Date of Service April 20, 2023 Admission HPI Per Admitting Provider Jose Alejandro Ibarra is a 48-year-old male with a past medical history of hypertension and hyperlipidemia presented with fevers, nausea, and vomiting and no p.o. intake for 72 hours. Fevers of 102 with rigors at home. Has not been able to keep down [id number] medications due to vomiting. Had surgery 2 weeks ago, had R ankle and foot screws place. Has been sitting at home for 2 weeks offloading after surgery No anticoagulation prior to today Fevers, chills, sweats last 2 days Since surgery has not been eating much. ~3 days of nausea/vomiting. Tylenol could not keep down. Pain meds could not keep down. Last night when throwing up, emesis was yellow liquid and bile. This morning oneal-kyra and dark green Nauseus and maybe a little pain before throwing up, but denies pain Went to the bathroom this morning. Had a BM but then got nauseus afterwards and vomited. No blood in BM. Has been takin ga stool softener due to being on pain medications History of colostomy in brother/father due to diverticulitis. No FHx of colorectal cancer. Medical History: Reviewed Medications: Reviewed. Has not taken losartan or simvastatin due to nausea/vomiting. Surgical History: Reviewed Family history: Reviewed Allergies: Reviewed Social History: Chew use 1 can/pouch per day. No cigarette use. Denies regular ETOH use. No recreational drug use. Code Status: Full Code Admission Exam Per Admitting Provider General: A&Ox3. NAD. Cooperative. HEENT: Atraumatic, normocephalic. Vision/hearing intact Pulm: CTAB A&P. -wheezes, -rales, -rhonchi. Symmetrical chest rise. No increased work of breathing. No respiratory distress. Cardiac: RRR, -mrg. Radial pulses intact and symmetrical. Abdominal: Minimal tenderness, without rebound, nondistended, soft. BS present. Extremities: Right lower extremity in short leg splint, no proximal right lower extremity tenderness or calf tenderness. Principal Diagnosis bacteremia secondary to acute diverticulitis w/ microperforations, s/p ex lap, multiple thrombi (PE, mesenteric, portal system) Discharge Exam Constitutional: well appearing, no acute distress HEENT: normocephalic, no conjunctival injection CV: regular rhythm, regular rate, no murmur, no LE edema Respiratory: Clear to auscultation bilaterally. No rhonchi, wheezes, or crackles. No increased work of breathing GI: soft, mildly distended, nontender, positive bowel sounds MSK: no gross deformities noted. Right foot/ankle casted up to below knee Skin: warm, dry, no rashes. Dry,clean dressing covering ex-lap incision Neuro: alert, oriented, no FND noted Discharge Data Allergies Allergy/AdvReac Type Severity Reaction Status Date / Time No Known Allergies Allergy Unverified 01/12/20 15:30 Consultations 04/15/23 15:19 ED Decision to Admit Stat 04/16/23 11:15 Consult Infectious Diseases Stat 04/16/23 11:17 Consult Orthopedic Surgery Routine 04/20/23 14:48 Burn CD for patient Stat Procedures Performed Operation Date: 04/18/23 12:45 Actual Procedures p Exploratory Laparoscopy, Washout and Drain insertion(Not Applicable) - Radha Aguilra DO Ordered Studies 04/15/23 11:55 CT Abd and Pelvis [CT abd pelvis IV con only] Stat 1. There is thickening of the sigmoid colon with associated microperforation and multiple inflamed diverticula. This has the appearance of an acute sigmoid diverticulitis. However, there is partial thrombosis of the majority of the inferior mesenteric vein with associated scattered foci of gas at the distal inferior mesenteric vein as well as portal venous gas identified in the right hepatic dome. Therefore, these findings are consistent with an ischemic colitis of the sigmoid colon. 2. There are few thrombosed distal branches of the right portal vein. 3. There is a small pulmonary embolus within the right lower lobe. There are 2 small peripheral wedge-shaped densities within the periphery of the left lower lobe likely representing pulmonary infarcts. 4. Additional findings as described above. 04/18/23 11:58 CT abd pelvis IV con only Urgent IMPRESSION: 1. Progressive thickening of the sigmoid colon and rectum consistent with ischemic colitis. There is also progressive gas within the inferior mesenteric vein which is almost completely thrombosed. 2. Small foci of extraluminal gas adjacent to the inflamed sigmoid colon diverticulum could be within the inferior mesenteric vein branches. A small focus of microperforation in the setting of an acute diverticulitis could also have a similar appearance. 3. Portal venous gas again noted consistent with underlying bowel ischemia. Thrombosed branches of the distal right portal vein, unchanged. There has been interval development of nonocclusive thrombus at the portosplenic confluence. 4. Additional findings as described above. 04/20/23 03:29 CT Abd and Pelvis [CT abd pelvis IV con only] Stat IMPRESSION: 1. Moderate sigmoid diverticulosis with inflammation around the rectosigmoid. This likely represents a combination of ischemic colitis and diverticulitis. 2. No organized fluid collection is seen to suggest abscess. 3. There are tiny foci of intraperitoneal free air in the pelvis. These have significantly decreased from previous. 4. Again seen is near complete thrombosis of the inferior mesenteric vein with a large amount of intraluminal gas and surrounding inflammation. A branch of the inferior mesenteric vein appears to communicate with a sigmoid diverticulum, and although rare a colovenous fistula must be considered. Surgical evaluation is advised. 5. Nonocclusive thrombus at the portosplenic confluence is unchanged. 6. Peripheral foci of portal venous thrombus in the right hepatic lobe are again noted. Intrahepatic portal venous gas seen previously has resolved. 7. There are small pleural effusions with dependent consolidation. These have increased in size from previous. There is also increasing body wall edema. 8. A surgical drain in the pelvis is new from previous. 9. Additional findings as above. Hospital Course (1) Acute diverticulitis: Pt is a 48 yo male with a past medical history of hypertension and hyperlipidemiahere for diverticulitis, polymicrobial bacteremia, and ischemic colitis. Sepsis with polymicrobial bacteremia secondary to acute diverticulitis with microperforation - original cultures (04/15) show polymicrobial bacteremia E. coli, C. Perfringens, Enterococcus, pseudomonas - repeat blood cx 04/18 neg - peritoneal fluid cx 04/18 neg - ABX course: per ID consult zosyn 4.5g q8hr( 04/15- current, last dose immediately prior to transport) clindamycin 900mg q8hr (04/18- current, will be due for dose upon arrival) - TTE: no evidence mass vegetation - currently NPO; continue normosol at 125 mL/hr - pain controlled with dilaudid 0.25mg q6hr PRN, tylenol 650mg q4hr PRN Acute venous ischemic colitis - CTAP on admission 04/15 showed microperforation and acute sigmoid diverticulitis with partial thrombosis of the inferior mesenteric vein with associated scattered foci of gas at the distal inferior mesenteric vein as well as portal venous gas identified in the right hepatic dome consistent with an ischemic colitis of the sigmoid colon; few thrombosed distal branches of the right portal vein; small pulmonary embolus within the RLL; 2 small peripheral wedge-shaped densities within the periphery of the left lower lobe likely representing pulmonary infarcts - repeat CTAP 04/20 showed stable/mildly improved findings except for concern for colovenous fistula (IMV and sigmoid diverticulum) - ex-lap performed 04/18 due to concern for ischemic colitis in the setting of increased abdominal pain, fevers, tachycardia- no diseased bowel noted and no bowel resection performed Pulmonary emboli, thrombosis of inferior mesenteric vein, right portal vein, portosplenic conference - possibly 2/2 immobilization s/p ankle surgery - initially on heparin drip, held for ex lap 04/18- resume as per above - hypercoag panel pending - recommend oral anticoagulation upon discharge Anemia - continue to monitor in setting of recent surgery - Hgb has remained stable History of arthroplasty of right ankle - right ankle surgical repair 2-3 weeks ago - consulted ortho Dr. Arguello; ankle doing well and unlikely source of bacteremia Hypokalemia - K 2.9 this AM - repleted 60 meq IV - recommend recheck in the AM Hypertension - losartan on hold - BP stable FEN: NPO, normosol at 125 mL/hr Code Status: Full DVT PPX: heparin Dispo: transfer to [facility] [place] for further surgical guidance Pt's heparin drip and IVF are to be continued during transfer. He will be due for his clindamycin upon arrival to [facility] [place]. (2) Acute ischemic colitis: (3) History of arthroplasty of right ankle: (4) Pulmonary emboli: (5) Infarctions, pulmonary: (6) Hypertension: (7) E. coli sepsis: (8) Polymicrobial sepsis: Total Time Total Time Spent Total Time Spent (In Minutes): as per attending attestation Discharge Plan Discharge Items Patient Disposition: Transfer Acute Care Hospital Reason For Visit: ISCHEMIC COLITIS/DIVERTICULITIS PE, ABD PAIN Discharge Diagnosis: Polymicrobial bacteremia secondary to diverticulitis Activity: Per Instructions section Non-emergency contact: Primary Care Provider Call non-emergency contact if: you have any medication questions, your symptoms worsen, you have a fever, your temperature is above 101.5, your wound has increased redness, your wound has increased drainage and your wound pain has increased Follow-up/Referrals: Gala Sorensen MD [Primary Care Provider] - Cristopher-Radha Garcia DO [Physician] - (Please call to schedule follow up in clinic within 2 weeks) Diet: Low Fiber Addtl Attending Provider Instructions: Pt is a 48 yo male with a past medical history of hypertension and hyperlipidemiahere for diverticulitis, polymicrobial bacteremia, and ischemic colitis. Sepsis with polymicrobial bacteremia secondary to acute diverticulitis with microperforation - original cultures (04/15) show polymicrobial bacteremia E. coli, C. Perfringens, Enterococcus, pseudomonas - repeat blood cx 04/18 neg - peritoneal fluid cx 04/18 neg - ABX course: per ID consult zosyn 4.5g q8hr( 04/15- current, last dose immediately prior to transport) clindamycin 900mg q8hr (04/18- current, will be due for dose upon arrival) - TTE: no evidence mass vegetation - currently NPO; continue normosol at 125 mL/hr - pain controlled with dilaudid 0.25mg q6hr PRN, tylenol 650mg q4hr PRN Acute venous ischemic colitis - CTAP on admission 04/15 showed microperforation and acute sigmoid diverticulitis with partial thrombosis of the inferior mesenteric vein with associated scattered foci of gas at the distal inferior mesenteric vein as well as portal venous gas identified in the right hepatic dome consistent with an ischemic colitis of the sigmoid colon; few thrombosed distal branches of the right portal vein; small pulmonary embolus within the RLL; 2 small peripheral wedge-shaped densities within the periphery of the left lower lobe likely representing pulmonary infarcts - repeat CTAP 04/20 showed stable/mildly improved findings except for concern for colovenous fistula (IMV and sigmoid diverticulum) - ex-lap performed 04/18 due to concern for ischemic colitis in the setting of increased abdominal pain, fevers, tachycardia- no diseased bowel noted and no bowel resection performed Pulmonary emboli, thrombosis of inferior mesenteric vein, right portal vein, portosplenic conference - possibly 2/2 immobilization s/p ankle surgery - initially on heparin drip, held for ex lap 04/18- resume as per above - hypercoag panel pending - recommend oral anticoagulation upon discharge Anemia - continue to monitor in setting of recent surgery - Hgb has remained stable History of arthroplasty of right ankle - right ankle surgical repair 2-3 weeks ago - consulted ortho Dr. Arguello; ankle doing well and unlikely source of bacteremia Hypokalemia - K 2.9 this AM - repleted 60 meq IV - recommend recheck in the AM Hypertension - losartan on hold - BP stable FEN: NPO, normosol at 125 mL/hr Code Status: Full DVT PPX: heparin Dispo: transfer to [facility] [place] for further surgical guidance Pt's heparin drip and IVF are to be continued during transfer. He will be due for his clindamycin upon arrival to [facility] [place]. Pending Studies at Discharge: Yes Studies:: Hypercoagulability panel Stand-Alone Forms: My [facility] Skilled Items Patient informed of condition?: Yes DNR: No Discharge Level of Care: Other Communicable Disease: No Discharge Prognosis: Stable Lines: Peripheral IV Urinary Catheter: No Medications and DC Order Prescriptions: New Eliquis 5 mg tablet 5 mg PO BID 30 Days Qty: 60 0RF Held losartan 50 mg tablet 50 mg PO DAILY Hold Instructions: Resume on 05/11/23. resume per [facility] discharge instructions simvastatin 40 mg tablet 40 mg PO DAILY Hold Instructions: Resume on 05/11/23. resume per [facility] [place] discharge instructions oxycodone-acetaminophen 5-325 mg tablet 1 tab PO USEASDIRECTD PRN (Reason: Pain) Hold Instructions: Resume on 05/11/23. Rx Instructions: q4-6 hours Discharge Orders: Discharge Order (Routine); Ordered 04/20/23 Ordered By: Yasmin Smallwood Admission Data Admit Date/Time: 04/15/23 16:08 Attending Provider: Zechariah Phillips Admit Provider: Marino Jimenez Primary Care Provider: Gala Sorensen Other Providers: Marino Jimenez ; Ewelina Harrington ; Cuauhtemoc Carroll ; Chrissie Rendon ; Kizzy Bell ; Rubia Duran ; Candace Forde ; Saira Ibanez ; Priscila Haji ; Jasmyn Olvera ; Barter,Ankit A Supervising Physician Co-Signing Physician Notes Attending attestation Pt seen and examined in concert with Dr. Smallwood. In agreement with the documented findings as noted in the resident documentation with any exceptions or additions as noted here. Ongoing intermittent severe abdominal pain controlled with IV dilaudid with increasing requirement overnight and passing flatus intermittently without BM. On examination, S1/S2 nl RRR no MCG. CTAB. Abd appropriately TTP worse at op site, ND BS+ve LE DVT post-surgical with likely embolization - currently on heparin, trend PTT per protocol and monitor for bleeding Abnormal CT with concern for abdominal vascular compromise and ?fistula formation - surgical consultation - per conversation with general surgery, this patient would benefit from tertiary center evaluation for possible intervention of worsening ischemic bowel not appreciated on original urgent surgical intervention in the setting of worsening symptoms. Sepsis w/ bacteremia with acute diverticulitis - ID consult, general surgery consult - continue abx therapy and follow repeat cultures. Trend CBC Else see resident documentation as noted. Total attending physician time spent with this patient's care on the day of discharge: 45 minutes. Resident Activity Tracking Resident Involvement: Resident Care Provided Care Provided: Adult Hospital Medicine
[2023-04-20 16:17] LABS: Partial Thromboplastin Ratio 1.4; Partial Thromboplastin Time 39.3 Seconds (21.0-31.0)
--- NOTE | 2023-04-20 17:44 | Surgery Progress Note ---
Date of Service April 20, 2023 Assessment & Plan (1) Acute ischemic colitis: Plan: based on Ct scan finding- colovenous fistula plan, recommend to transfer to higher level care for consult IR possible embolization. D/w benefits, risks and alternatives of the transfer. pt agreed with the plan, I answered all questions, Admission and Anticipated Discharge Date Admission Date: April 15, 2023 Supervising Physician Co-Signing Physician Notes Attending attestation Pt seen and examined in concert with Dr. Smallwood. In agreement with the documented findings as noted in the resident documentation with any exceptions or additions as noted here. Ongoing intermittent severe abdominal pain controlled with IV dilaudid with increasing requirement overnight and passing flatus intermittently without BM. On examination, S1/S2 nl RRR no MCG. CTAB. Abd appropriately TTP worse at op sit e, ND BS+ve LE DVT post-surgical with likely embolization - currently on heparin, trend PTT per protocol and monitor for bleeding Abnormal CT with concern for abdominal vascular compromise and ?fistula formation - surgical consultation - per conversation with general surgery, this patient would benefit from tertiary center evaluation for possible intervention of worsening ischemic bowel not appreciated on original urgent surgical intervention in the setting of worsening symptoms. Sepsis w/ bacteremia with acute diverticulitis - ID consult, general surgery consult - continue abx therapy and follow repeat cultures. Trend CBC Else see resident documentation as noted. Total attending physician time spent with this patient's care on the day of discharge: 45 minutes. Subjective 04/20/2023 5:43 PM, Dr. Barajas F/U Exploratory Laparoscopy, Washout and Drain insertion for acute ischemic diverticulitis . POD [address] scan today- MPRESSION: 1. Moderate sigmoid diverticulosis with inflammation around the rectosigmoid. This likely represents a combination of ischemic colitis and diverticulitis. 2. No organized fluid collection is seen to suggest abscess. 3. There are tiny foci of intraperitoneal free air in the pelvis. These have significantly decreased from previous. 4. Again seen is near complete thrombosis of the inferior mesenteric vein with a large amount of intraluminal gas and surrounding inflammation. A branch of the inferior mesenteric vein appears to communicate with a sigmoid diverticulum, and although rare a colovenous fistula must be considered. Surgical evaluation is advised. 5. Nonocclusive thrombus at the portosplenic confluence is unchanged. 6. Peripheral foci of portal venous thrombus in the right hepatic lobe are again noted. Intrahepatic portal venous gas seen previously has resolved. 7. There are small pleural effusions with dependent consolidation. These have increased in size from previous. There is also increasing body wall edema. 8. A surgical drain in the pelvis is new from previous. pt denies significant abdominal pain, no fever, no dizziness. Physical Exam Constitutional: WD/WN, vitals as above Neck: trachea midline, no thyromegaly Respiratory: normal respiratory effort, lungs clear to auscultation Cardiovascular: RRR, no murmur, no edema Gastrointestinal (Abdomen): soft, mild tenderness at incision site, no rebound pain, no distend, BS +. Neurologic: patellar DTR's 2+ bilat, sensation intact Psychiatric: A+Ox3, euthymic affect Results & Data Vital Signs (Past 12 Hours) Vital Signs Temp Pulse Resp BP Pulse Ox O2 Del Method 04/20/23 15:39 36.9 C 76 17 138/83 94 Room Air 04/20/23 11:42 37.4 C 70 17 128/81 93 Room Air 04/20/23 07:53 36.7 C 75 18 136/81 92 Room Air Laboratory Results Abnormal lab results 04/19/23 04/20/23 04/20/23 Range/Units 17:41 00:25 00:25 WBC (4.8-10.8) K/ul RBC (4.70-6.10) M/uL Hgb 9.9 L (14.0-18.0) g/dl Hct 29.3 L (42.0-52.0) % MCV (80.0-100.0) fL RDW Coeff of Angelo (11.5-14.5) % PT 12.1 H (9.0-12.0) Seconds APTT 37.0 H (21.0-31.0) Seconds Potassium (3.5-5.1) mmol/L Creatinine (0.6-1.4) mg/dl Glucose (70-99(Fasting)) mg/dl Calcium (8.6-10.3) mg/dl Total Protein (6.0-8.3) gm/dl Albumin (3.4-5.0) gm/dl 04/20/23 04/20/23 04/20/23 Range/Units 06:02 06:02 06:02 WBC 12.37 H (4.8-10.8) K/ul RBC 3.64 L (4.70-6.10) M/uL Hgb 10.0 L (14.0-18.0) g/dl Hct 29.1 L (42.0-52.0) % MCV 79.9 L (80.0-100.0) fL RDW Coeff of Angelo 14.6 H (11.5-14.5) % PT (9.0-12.0) Seconds APTT 34.1 H (21.0-31.0) Seconds Potassium 2.9 L D (3.5-5.1) mmol/L Creatinine 0.59 L (0.6-1.4) mg/dl Glucose 116 H (70-99(Fasting)) mg/dl Calcium 6.7 L (8.6-10.3) mg/dl Total Protein 5.0 L (6.0-8.3) gm/dl Albumin 2.3 L (3.4-5.0) gm/dl 04/20/23 04/20/23 Range/Units 07:32 15:22 WBC (4.8-10.8) K/ul RBC (4.70-6.10) M/uL Hgb (14.0-18.0) g/dl Hct (42.0-52.0) % MCV (80.0-100.0) fL RDW Coeff of Angelo (11.5-14.5) % PT (9.0-12.0) Seconds APTT 34.5 H 39.3 H (21.0-31.0) Seconds Potassium (3.5-5.1) mmol/L Creatinine (0.6-1.4) mg/dl Glucose (70-99(Fasting)) mg/dl Calcium (8.6-10.3) mg/dl Total Protein (6.0-8.3) gm/dl Albumin (3.4-5.0) gm/dl Diagnostic Findings MPRESSION: 1. Moderate sigmoid diverticulosis with inflammation around the rectosigmoid. This likely represents a combination of ischemic colitis and diverticulitis. 2. No organized fluid collection is seen to suggest abscess. 3. There are tiny foci of intraperitoneal free air in the pelvis. These have significantly decreased from previous. 4. Again seen is near complete thrombosis of the inferior mesenteric vein with a large amount of intraluminal gas and surrounding inflammation. A branch of the inferior mesenteric vein appears to communicate with a sigmoid diverticulum, and although rare a colovenous fistula must be considered. Surgical evaluation is advised. 5. Nonocclusive thrombus at the portosplenic confluence is unchanged. 6. Peripheral foci of portal venous thrombus in the right hepatic lobe are again noted. Intrahepatic portal venous gas seen previously has resolved. 7. There are small pleural effusions with dependent consolidation. These have increased in size from previous. There is also increasing body wall edema. 8. A surgical drain in the pelvis is new from previous.
[2023-04-21 03:08] LABS: Factor 5 Mutation NEGATIVE
[2023-04-21 07:31] LABS: Anti Cardiolipin Ab IgG <2.0 GPL-U/mL (<20.0); Anti Cardiolipin Ab IgM 5.1 MPL-U/mL (<20.0); Anti-Cardiolipin Ab IgA 2.7 APL-U/mL (<20.0); B2 Glycoprotein IgA <2.0 U/mL (<20.0); B2 Glycoprotein IgG <2.0 U/mL (<20.0); B2 Glycoprotein IgM 4.3 U/mL (<20.0); Phosphatidylser Prothrom IgG 10 U (<=30); Phosphatidylserine ProthromIgM 9 U (<=30); Protein S Functional(Activity) 62 % normal (70-150)
== END 2023-04-20 18:08 | disposition short-term general hospital (02) | DRG 853 ==
LOC: ED 09:59 → EDINP 16:08 → SUATTDRO 16:08 → EDINP 17:08 → 4W 04-16 16:03

== ENCOUNTER 2025-07-05 14:42 | Observation (INO) ==
[2025-07-05] MEDS: NITROGLYCERIN 2% OINTMENT 30GM TUBE EXT STA (15:08)
[2025-07-05] MEDS: ASPIRIN CHEW 324 MG PO STA (15:08)
[2025-07-05] MEDS: FAMOTIDINE 20MG IV PUSH 20 MG/5 ML SYR IV STA (15:09)
--- NOTE | 2025-07-05 15:09 | Emergency Department Note ---
Impression & Plan Precordial chest pain, Tachycardia, Hypertension ED Provider Note NAME: BRANDON BISHOP Jr AGE: 50 SEX: M : 1975 ARRIVES VIA: Walk-In INFORMANT: [Patient] ED PROVIDER(S): [Suleman Aguirre MD] CHIEF COMPLAINT: Chest pain HISTORY OF PRESENT ILLNESS: The patient is a 50-year-old male who states that 3 hours ago, he was sitting and suddenly developed some pain in the center of his chest. The pain goes to his shoulders, neck and jaw/teeth. He states that the pain does seem maybe a bit worse if he takes a deep breath although, he is not short of breath. There has been no sweating or nausea. He has no known coronary disease. He has no history of similar episodes. Of note, there has been no prolonged travel by plane car or train. Patient has no known cardiac disease. PMHx/PSHx/Social Hx: See Below PHYSICAL EXAM: GENERAL: Patient is in no acute distress. HEENT: No acute trauma, normocephalic atraumatic, mucous membranes moist, no nasal congestion. NECK: No stridor, no adenopathy, no meningismus, trachea is midline. LUNGS: Clear to auscultation bilaterally, no wheeze, no rhonchi, breath sounds equal. HEART: Mildly tachycardic, regular rhythm, no murmurs. Chest: Nontender chest wall. ABDOMEN: Soft, nontender, no peritonitis. EXTREMITIES: No cyanosis, full range of motion of all the joints without pain or difficulty. NEUROLOGIC: Oriented x 3, no acute motor or sensory deficits, no focal weakness. SKIN: No jaundice, no diaphoresis. DIFFERENTIAL DIAGNOSIS: Cardiac ischemia, PE, pneumothorax, pneumonia, musculoskeletal pain, reflux, among others. EMERGENCY DEPARTMENT PROCEDURES: MEDICAL DECISION MAKING: There is no leukocytosis or concerning anemia. There is a normal platelet count. No bandemia. No coagulopathy. D-dimer testing is negative making PE less likely. There was no renal failure or significant electrolyte abnormality. No concerning liver enzyme elevation. No evidence for pancreatitis. Patient appeared to be in a euthyroid state. ECG showed a sinus tachycardia, no obvious ST elevation. Repeat ECG showed similar findings. Cardiac enzyme testing x 1 was not consistent with acute cardiac injury. Chest x-ray did not show mediastinal widening, pneumonia or pneumothorax. Chest CT did not show PE or findings of aortic dissection. On exam, the patient complained of chest pain and it was jaw and teeth. His chest pain was not reproducible with palpation. He was not toxic. He was a bit tachycardic, he was hypertensive The patient received 1 inch of nitroglycerin paste, he was given IV Pepcid and oral aspirin. With the above treatment, the patient is resting comfortably and feels markedly improved. His symptoms have resolved. His hypertension has improved. Given the patient's age, his chest pain with radiation to his jaw and neck, his positive response to nitroglycerin, I do think admission and further cardiac workup is warranted. I spoke with the patient and case management. The on-call hospitalist was consulted. Prior/Outside records/notes reviewed: None ECG per my interpretation: Indication was chest pain. The ECG shows a sinus tachycardia with a rate of 116. There is diffuse baseline artifact. There is no obvious ST elevation, no PVCs. The QTc is 442. Repeat ECG per my interpretation: Indication was chest pain. The ECG shows a sinus tachycardia with a rate of 103. There is no acute ST elevation, no PVCs. The QTc is 455. Continuous Cardiac Monitoring per my interpretation: An order was placed for continuous cardiac monitoring. The monitor shows a rate of 105 with sinus tachycardia. Imaging/x-ray results per my interpretation: Chest x-ray does not show mediastinal widening, pneumonia or pneumothorax. Chronic Medical/Social conditions affecting care: None Care/Management discussed with: Case management and the on-call hospitalist. Level of care consideration(s): After review of the information above and other included data: --I believe the patient requires escalation of care to admission DISPOSITION: Admission Past Med/Surg History Problem List Chest pain Tachycardia (Acute) Precordial chest pain (Acute) E. coli sepsis Infarctions, pulmonary (Acute) Acute diverticulitis (Acute) Cellulitis of right lower extremity (Acute) H/O exploratory laparotomy (04/18/23) Exploratory Laparoscopy, Washout and Drain insertion(Not Applicable) - Radha Aguilar DO Acute ischemic colitis (Acute) resolved Hypertension (Chronic) Pulmonary emboli (Acute) s/p ankle surgery Mar 2023 > Khurram TORRES'ed on Aug 30, 2023 Polymicrobial sepsis Apr 2023 [facility] [place] [facility] [place] of [place]plasty of right ankle Medical History Hyperlipidemia Colostomy in place Surgical History History of ankle surgery left with hardware History of colonoscopy History of tooth extraction H/O exploratory laparotomy (04/18/23) Exploratory Laparoscopy, Washout and Drain insertion(Not Applicable) - Radha Aguilar DO History of arthroplasty of right ankle Family History Mother Breast cancer Grandmother (Maternal) Myocardial infarction Denies family history of Ovarian cancer Prostate cancer Colorectal cancer Social History Smoking Status: Never smoker Tobacco Type: Smokeless Tobacco (Dip or Chew) Second Hand Exposure: No; Do You Dip or Chew Tobacco: Yes (chews "all day everyday"); Tobacco Cessation Education Requested by Patient: No Hx Alcohol Use: No Hx Substance Use: No Preferred Language: Lao Communication Ability: Effective Visual Impairment: No Limitations Hearing Ability: Normal [employer] Required: No Beliefs That Will Affect Care: None Current Living Situation: Spouse Current Living Situation Comment: home with Other Information That Helps Us Care for You: No Feels Safe at Home: Yes Safety Concerns: Feels Safe At This Time Assistive Devices: Glasses Assistive Devices Comment: reading glasses - Allergies Allergies Allergy/AdvReac Type Severity Reaction Status Date / Time No Known Allergies Allergy Verified 07/05/25 17:04 Home Meds Home Medications Medication Instructions Recorded Confirmed losartan 50 mg tablet 50 mg PO HS 01/12/20 07/05/25 simvastatin 40 mg tablet 40 mg PO HS 01/12/20 07/05/25 Results & Data (ED) Vital Signs Vital Signs - 24 hr 07/05/25 14:43 07/05/25 15:00 07/05/25 15:00 Temperature 36.0 C L Temperature Source Temporal Artery Scan Pulse Rate 120 H Pulse Rate [Apical] 105 H Respiratory Rate 17 18 Respiratory Effort / Characteristics Non-Labored Spontaneous Non-Labored Spontaneous Respiratory Depth Normal Normal Respiratory Pattern Regular Regular Blood Pressure 174/122 H Blood Pressure [Right Arm] 175/123 H Blood Pressure Mean 139 Blood Pressure Mean [Right Arm] 140 Pulse Oximetry 99 98 98 Oxygen Delivery Method Room Air Room Air Room Air Sepsis Recent Fever Within 48 Hours No Sepsis New/Unexplained Change in Mental Status N/A Sepsis Action Taken by Nursing No Action Required 07/05/25 15:15 07/05/25 15:15 07/05/25 16:24 Temperature Temperature Source Pulse Rate 104 H Pulse Rate [Apical] 100 H Respiratory Rate 16 Respiratory Effort / Characteristics Respiratory Depth Respiratory Pattern Blood Pressure Blood Pressure [Right Arm] 154/107 H Blood Pressure Mean Blood Pressure Mean [Right Arm] 122 Pulse Oximetry 97 98 Oxygen Delivery Method Room Air Room Air Sepsis Recent Fever Within 48 Hours Sepsis New/Unexplained Change in Mental Status Sepsis Action Taken by [facility] Medications Current Medication List: was personally reviewed by me Laboratory Data Attestation: I reviewed the patient's lab results. 07/05/25 Unknown 07/05/25 Unknown Lab Results 07/05/25 Range/Units Unknown WBC 9.25 (4.8-10.8) K/ul RBC 5.54 (4.70-6.10) M/uL Hgb 16.1 (14.0-18.0) g/dL Hct 49.5 (42.0-52.0) % MCV 89.4 (80.0-100.0) fL MCH 29.1 (25.0-34.0) pg MCHC 32.5 (32.0-36.0) g/dL RDW Std Deviation 44.1 (36.4-46.3) fL RDW Coeff of Angelo 13.6 (11.5-14.5) % Plt Count 205 (130-400) K/uL MPV 10.8 (9.4-12.4) fL Immature Gran % (Auto) 0.2 % Neut % (Auto) 74.0 % Lymph % (Auto) 17.6 % [place] % (Auto) 7.0 % Eos % (Auto) 0.8 % Baso % (Auto) 0.4 % Neut # (Auto) 6.84 H (1.40-6.50) K/uL Lymph # (Auto) 1.63 (1.20-3.40) K/uL [place] # (Auto) 0.65 H (0.11-0.59) K/uL Eos # (Auto) 0.07 (0.00-0.50) K/uL Baso # (Auto) 0.04 (0.00-0.20) K/uL Immature Gran # (Auto) 0.02 (0.01-0.20) K/uL PT 10.3 (9.0-12.0) Seconds INR 1.0 (0.9-1.1) APTT 25 (21-31) Seconds PTT Ratio 0.9 D-Dimer 190 (0-500) ug/L FEU Sodium 145 (136-145) mmol/L Potassium 3.8 (3.5-5.1) mmol/L Chloride 107 (98-107) mmol/L Carbon Dioxide 28 (21-32) mmol/L Anion Gap 10 (3-11) BUN 6 (6-23) mg/dl Creatinine 0.83 (0.6-1.4) mg/dl Est Cr Clr Drug Dosing 118.3 ml/min eGFR 105.31 BUN/Creatinine Ratio 7.2 L (10-20) Glucose 97 (70-99(Fasting)) mg/dl Calcium 9.3 (8.6-10.3) mg/dl Magnesium 2.1 (1.7-2.4) mg/dl Total Bilirubin 0.6 (0.2-1.0) mg/dl AST 25 (13-39) U/L ALT 29 (7-52) U/L Alkaline Phosphatase 74 (34-104) U/L Troponin I High Sens < 2.3 (0-20) pg/ml Total Protein 7.8 (6.0-8.3) gm/dl Albumin 4.3 (3.4-5.0) gm/dl Globulin 3.5 (2.5-4.0) gm/dl Albumin/Globulin Ratio 1.2 (0.9-2) Lipase 10 L (11-82) U/L TSH 1.877 (0.300-4.500) uIu/ml Administered Medications Heparin Sodium (Porcine) (Heparin Sod 5,000 Unit/0.5 Ml Vial) 5,000 units SQ Q8 RICARDO Stop: 08/04/25 21:59 Last Admin: 07/05/25 21:31 Dose: 5,000 units Documented By: SAS Losartan Potassium (Losartan Potassium 50 Mg Tab) 50 mg PO HS RICARDO Stop: 08/04/25 20:59 Last Admin: 07/05/25 21:27 Dose: 50 mg Documented By: KRYS Metoprolol Tartrate (Metoprolol Tartrate 25 Mg Tab) 25 mg PO BID RICARDO Stop: 08/04/25 20:59 Last Admin: 07/05/25 21:28 Dose: 25 mg Documented By: KRYS Simvastatin (Simvastatin 40 Mg Tab) 40 mg PO HS RICARDO Stop: 08/04/25 20:59 Last Admin: 07/05/25 21:27 Dose: 40 mg Documented By: KRYS Discontinued Medications Aspirin (Aspirin Chew 324 Mg) 324 mg PO NOW STA Stop: 07/05/25 15:04 Last Admin: 07/05/25 15:08 Dose: 324 mg Documented By: dg Famotidine (Pepcid 20mg Iv Push) 20 mg in 5 mls @ 2.5 mls/min IV NOW STA Stop: 07/05/25 15:04 Last Admin: 07/05/25 15:09 Dose: 2.5 mls/min Documented By: dg Ioversol (Optiray 320 125ml) 120 ml IV ONCE ONE Stop: 07/05/25 17:02 Last Admin: 07/05/25 17:01 Dose: 120 ml Documented By: SEAN Nitroglycerin (Nitroglycerin 2% Ointment 30gm Tube) 1 inch EXT NOW STA Stop: 07/05/25 15:04 Last Admin: 07/05/25 15:08 Dose: 1 inch Documented By: dg Imaging Data Radiologist's Impression: Chest X-Ray 07/05/25 14:52 XR chest 1V portable CLINICAL HISTORY: Chest pain, nonspecific COMPARISON STUDY: 04/15/2023 FINDINGS: Heart size and pulmonary vasculature are normal. No consolidation or pleural effusion. No pneumothorax. IMPRESSION: No acute findings. ACT 112: Negative or not required by law. Electronically signed by: Wood Pierre M.D. 07/05/2025 3:07 PM Chest CTA 07/05/25 15:53 CT pulmonary angiogram with IV contrast. History: Altered level of consciousness. COMPARISON: Single view chest April 15, 2023. TECHNIQUE: CT angiography of the chest was performed without IV contrast followed by IV contrast, including 3D post processing CTA image reconstruction. FINDINGS: Senior Behavioral Scientist film demonstrates no acute abnormality. Lung windows demonstrate mild dependent subsegmental atelectasis right greater than left. Soft tissue windows demonstrate pulmonary artery opacification of diagnostic quality. No appreciated pulmonary artery filling defects. Heart size is within normal limits. Trace pericardial effusion. No pleural effusions. No appreciated coronary artery calcifications. Included upper abdomen demonstrates likely calcified granuloma left upper abdomen. Bone windows demonstrate no appreciated abnormality. IMPRESSION: 1. No pulmonary embolism. 2. Nonspecific mild dependent subsegmental atelectasis. Otherwise no findings to suggest source for patient's symptoms. Electronically signed by Deandre Coates 07-05-2025 5:58 PM Discharge Plan Visit Data Chief Complaint: Chest Pain Stated Complaint: CHEST PAIN ED Provider: Suleman Aguirre Discharge Problem: Precordial chest pain, Tachycardia, Hypertension Patient Disposition: Admitted As Inpatient Condition: Fair Discharge Instructions Interventions: ED Discharge Assessment Last Done: 07/05/25 20:20 Discharge Problem: Hypertension Qualifiers: Hypertension type: unspecified Qualified Code(s): I10 - Essential (primary) hypertension
--- NOTE | 2025-07-05 15:09 | XRay Report ---
XR chest 1V portable CLINICAL HISTORY: Chest pain, nonspecific COMPARISON STUDY: 04/15/2023 FINDINGS: Heart size and pulmonary vasculature are normal. No consolidation or pleural effusion. No p neumothorax. IMPRESSION: No acute findings. ACT 112: Negative or not required by law. Electronically signed by: Wood Pierre M.D. 07/05/2025 3:07 PM
[2025-07-05 16:20] LABS: Hematocrit (blood only) 49.5 % (42.0-52.0); Hemoglobin 16.1 g/dL (14.0-18.0); Immature Granulocytes # (auto) 0.02 K/uL (0.01-0.20); Immature Granulocytes % (auto) 0.2 %; Mean Corpuscular Hemoglobin 29.1 pg (25.0-34.0); Mean Corpuscular Volume 89.4 fL (80.0-100.0); Platelet Count 205 K/uL (130-400); RDW Standard Deviation 44.1 fL (36.4-46.3); Red Blood Count 5.54 M/uL (4.70-6.10); White Blood Count 9.25 K/ul (4.8-10.8)
[2025-07-05 16:41] LABS: Alanine Aminotransferase 29 U/L (7-52); Albumin Globulin Ratio 1.2 (0.9-2); Albumin Level 4.3 gm/dl (3.4-5.0); Alkaline Phosphatase 74 U/L (34-104); Anion Gap 10 (3-11); Bilirubin,Total 0.6 mg/dl (0.2-1.0); Blood Urea Nitrogen 6 mg/dl (6-23); Calcium 9.3 mg/dl (8.6-10.3); Carbon Dioxide 28 mmol/L (21-32); Chloride 107 mmol/L (98-107); Creatinine Clr Calc Pharmacy 118.3 ml/min; Globulin 3.5 gm/dl (2.5-4.0); Glucose 97 mg/dl (70-99(Fasting)); Lipase 10 U/L (11-82); Magnesium 2.1 mg/dl (1.7-2.4); Potassium 3.8 mmol/L (3.5-5.1); Sodium 145 mmol/L (136-145); Total Protein 7.8 gm/dl (6.0-8.3)
[2025-07-05 16:51] LABS: INR 1.0 (0.9-1.1); Partial Thromboplastin Time 25 Seconds (21-31); Prothrombin Time 10.3 Seconds (9.0-12.0)
[2025-07-05 16:55] LABS: Thyroid Stimulating Hormone 1.877 uIu/ml (0.300-4.500)
[2025-07-05] MEDS: OPTIRAY 320 125ml IV ONE (17:01)
--- NOTE | 2025-07-05 17:58 | CT Scan Report ---
CT pulmonary angiogram with IV contrast. History: Altered level of consciousness. COMPARISON: Single view chest April 15, 2023. TECHNIQUE: CT angiography of the chest was performed without IV contrast followed by IV contrast, including 3D post processing CTA image reconstruction. FINDINGS: Country Singer film demonstrates no acute abnormality. Lung windows demonstrate mild dependent subsegmental atelectasis right greater than left. Soft tissue windows demonstrate pulmonary artery opacification of diagnostic quality. No appreciated pulmonary artery filling defects. Heart size is within normal limits. Trace pericardial effusion. No pleural effusions. No appreciated coronary artery calcifications. Included upper abdomen demonstrates likely calcified granuloma left upper abdomen. Bone windows demonstrate no appreciated abnormality. IMPRESSION: 1. No pulmonary embolism. 2. Nonspecific mild dependent subsegmental atelectasis. Otherwise no findings to suggest source for patient's symptoms. Electronically signed by Deandre Coates 07-05-2025 5:58 PM
[2025-07-05] MEDS ORDERED: ONDANSETRON INJ 2 MG/ML 2 ML VIAL IV PRN (18:14)
--- NOTE | 2025-07-05 19:21 | History & Physical Report ---
Date of Service July 05, 2025 Assessment & Plan (1) Chest pain: Plan: -trend troponin -asa, statin, metoprolol -echo -stress test -cardiology consult in am (2) Hyperlipidemia: Plan: -simvastatin (3) Hypertension: Plan: -losartan Plan -Heparin SQ for DVT px History of Present Illness Chief Complaint: Chest pain Primary Care Provider: Gala Sorensen MD Pt is a 50 y/o male with pmh of HTN, HLD who presents with chest pain that radiates across his chest and up his neck. 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 He denies any SOB or palpitations. In the ER his EKG showed no ST-T changes and his troponin were WNL. He had a CTA of the chest which was negative for PE. Pt is being admitted for further evaluation and treatment of his chest pain including echo, stress test and cardiology consult in the am. Allergies Allergy/AdvReac Type Severity Reaction Status Date / Time No Known Allergies Allergy Verified 07/05/25 17:04 Home Medications Medication Instructions Recorded Confirmed Type losartan 50 mg tablet 50 mg PO HS 01/12/20 07/05/25 History simvastatin 40 mg tablet 40 mg PO HS 01/12/20 07/05/25 History Past Med/Surg History Problem List Chest pain Tachycardia (Acute) Precordial chest pain (Acute) E. coli sepsis Infarctions, pulmonary (Acute) Acute diverticulitis (Acute) Cellulitis of right lower extremity (Acute) H/O exploratory laparotomy (04/18/23) Exploratory Laparoscopy, Washout and Drain insertion(Not Applicable) - Radha Aguilar DO Acute ischemic colitis (Acute) resolved Hypertension (Chronic) Pulmonary emboli (Acute) s/p ankle surgery Mar 2023 > Eliquis DC'ed on Aug 30, 2023 Polymicrobial sepsis Apr 2023 [facility] [place] then sent to [facility] [place] History of arthroplasty of right ankle Medical History Hyperlipidemia Colostomy in place Polymicrobial sepsis Apr 2023 [facility] [place] then sent to [facility] [place] Pulmonary emboli s/p ankle surgery Mar 2023 > Eliquis DC'ed on Aug 30, 2023 Acute ischemic colitis resolved Hypertension Surgical History History of ankle surgery left with hardware History of colonoscopy History of tooth extraction H/O exploratory laparotomy (04/18/23) Exploratory Laparoscopy, Washout and Drain insertion(Not Applicable) - Radha Aguilar DO History of arthroplasty of right ankle Family History Mother Breast cancer Grandmother (Maternal) Myocardial infarction Denies family history of Ovarian cancer Prostate cancer Colorectal cancer Social History Smoking Status: Never smoker Tobacco Type: Smokeless Tobacco (Dip or Chew) Second Hand Exposure: No; Do You Dip or Chew Tobacco: Yes (advised npo status); Hx Alcohol Use: No Hx Substance Use: No Preferred Language: Sami Communication Ability: Effective Visual Impairment: No Limitations Hearing Ability: Normal Assayer Required: No Beliefs That Will Affect Care: None Current Living Situation: Spouse Feels Safe at Home: Yes Assistive Devices: None Review of Systems Review of Systems: CONST: Negative for fever, body aches and chills. HENT: Negative for neck pain/stiffness, headache, congestion, sore throat, swelling. EYES: Negative for discharge/pain or vision changes. RESP: Negative for cough/hemoptysis and shortness of breath. CV: + chest pain, difficulty breathing, palpitations. ABD: Negative pain, nausea, vomiting. : Negative increase frequency, dysuria, blood in urine or stool. MUSC: Negative for muscle aches, edema. SKIN: Negative rash, lesions/sores. NEURO: Negative headache, dizziness, weakness. Physical Exam Physical Exam: GENERAL APPEARANCE NAD, activity normal for age, well developed/ well nourished, no cyanosis, pallor, or diaphoresis. EYES lids/conjunctiva normal. EARS/NOSE/THROAT Mucous membranes moist, nares normal, lips/teeth normal uvula midline without oral pharyngeal erythema, exudate or swelling TMs normal bilaterally. No lymphangitis/lymphedema. HEAD/NECK normocephalic atraumatic, no facial trauma, neck is supple. RESPIRATORY respiratory effort normal, speaks in full sentences, no tripod position, no accessory muscle use. Lungs clear to auscultation without rhonchi, wheezes, rales CARDIAC Regular rate and rhythm, no edema. ABDOMINAL Soft, ND/NT. No evidence of fluid wave. No pulsatile masses on exam, rebound tenderness, Doss sign or pain over Mcburney's point. MUSCLES/EXTREMITIES No abnormal range of motion, no swelling. SKIN Warm, pink and dry. No rashes, dermatoses, petechiae or lesions. NEUROLOGICAL Speech is clear and appropriate. Normal level of consciousness. Gait and coordination are normal. 5/5 strength in all extremities. PSYCH Normal mood and affect. Judgement/competence is appropriate Results & Data Results & Data Vital Signs (Past 12 Hours) Vital Signs Temp Pulse Pulse Resp BP BP Pulse Ox 07/05/25 18:56 100 H 16 113/72 94 07/05/25 18:27 102 H 16 113/81 94 07/05/25 16:24 104 H 07/05/25 15:15 100 H 16 154/107 H 98 07/05/25 15:15 97 07/05/25 15:00 98 07/05/25 15:00 105 H 18 175/123 H 98 07/05/25 14:43 36.0 C L 120 H 17 174/122 H 99 O2 Del Method 07/05/25 18:56 Room Air 07/05/25 18:27 Room Air 07/05/25 16:24 07/05/25 15:15 Room Air 07/05/25 15:15 Room Air 07/05/25 15:00 Room Air 07/05/25 15:00 Room Air 07/05/25 14:43 Room Air PG Care Time/CCT Total # of Minutes Spent Total Time Spent with Patient: Total time spent is greater than 50% in coordination of care (as documented) at patient's floor/unit and/or counseling patient: Coding Level of Care Code 62697 INT INP/OBS CARE 2/55MIN Diagnoses Chest pain R07.9 Hyperlipidemia E78.5 Hypertension I10 Hypertension type: unspecified (3) Hypertension Hypertension type: unspecified Qualified Code(s): I10 - Essential (primary) hypertension
[2025-07-05] MEDS: LOSARTAN POTASSIUM 50 MG TAB PO SCH (21:27)
[2025-07-05] MEDS: SIMVASTATIN 40 MG TAB PO SCH (21:27)
[2025-07-05] MEDS: METOPROLOL TARTRATE 25 MG TAB PO SCH (21:28)
[2025-07-05] MEDS: HEPARIN SOD 5,000 UNIT/0.5 ML VIAL SQ SCH (21:31)
[2025-07-05] MEDS: ACETAMINOPHEN 325 MG TAB PO PRN (23:42)
[2025-07-05] MEDS: MELATONIN 3 MG TAB PO PRN (23:42)
[2025-07-06] MEDS: ASPIRIN 81 MG ECTAB PO SCH (07:42)
--- NOTE | 2025-07-06 10:22 | Cardiology Consultation ---
Date of Consultation July 06, 2025 Assessment & Plan (1) Chest pain: Plan Chest pain - The setting is rather atypical in nature, though his symptoms and family history are a little concerning. - Additional troponin level given only one was completed and the patient's symptoms continued. - Would continue to trend EKGs and troponin for any additional episodes of chest pain - Stress echo ordered to assess for any inducible ischemia - Fasting lipid panel ordered HTN - He was quite hypertensive on ER arrival. BP seems more controlled. now. - Appears to take losartan 50 mg each evening on an outpatient basis - Metoprolol to tartrate 25 mg twice daily was added during his hospitalization. Supervising Physician Co-Signing Physician Notes I saw and examined the patient and agree with documentation by REBECCA Momin. Briefly, the patient experienced an episode of chest, neck and arm discomfort at rest. The episode itself was fairly prolonged in nature prior to evaluation in the emergency room. In fact, patient did report some residual symptoms of discomfort for several hours after reaching the hospital. Cardiac biomarkers were normal at 3 hours. Chest CTA did not demonstrate any intrathoracic pathology such as PE or aortic dissection. He did well on his exercise echocardiography. He had no symptoms and exercised for 9 minutes. There were no objective findings of ischemia. Overall this seems to be a low risk situation. Certainly no evidence of ischemia or CT. From a cardiac standpoint he could certainly continue aggressive risk factor modification especially given his family history. History of Present Illness Reason for Consultation: chest pain Attending Physician: Drake Blackwell MD History of Present Illness Jose Alejandro is a 50-year-old male with a past medical history of HTN, ischemic c olitis, pulmonary emboli/infarction who presented to the ER yesterday evening with complaint of chest pain. 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 He was operating a piece of equipment when he suddenly developed a severe 10/10 chest pressure to the substernal area. This pain radiated upward towards both sides of his jaw, to both shoulders and in between his shoulder blades. He states the pain started at approximately 12 PM. With time, the pain did become less severe with complete resolution around 0200 this morning. He states he has never felt anything like that before. He denies any associated dizziness, near-syncope or syncope. He denies any palpitations. At time of assessment, he is denying chest pain. He denies any shortness of breath or PITT. He did report that at the time he was having chest pain he did feel moderate discomfort with taking a deep breath. He denies any swelling to his lower extremities. His EKG in the ER revealed sinus tachycardia with a rate of 103, there was no obvious ischemic concern. He was quite hypertensive with his first BP recording as 174/122. HS troponin was negative. CTA chest negative for PE. In the ER, he was provided with an inch of nitroglycerin paste, IV pepcid and aspirin. Jose Alejandro states he does not smoke but he does chew 1 can of snuff a day. He denies any alcohol or illicit drug use. Diet duribn, he states he eats chips and tasty cakes on occasion throughout the week. He consumes a lot of red meat. He typically does not salt his food. There is a significant cardiac history on pertaining to the men on his mother's side of his family. His maternal grandfather had his first heart attack at 38 years old and ultimately of a heart attack later in life. He states all the men on that side of the family from heart attacks. Allergies Allergy/AdvReac Type Severity Reaction Status Date / Time No Known Allergies Allergy Verified 07/05/25 17:04 Home Medications Medication Instructions Recorded Confirmed Type losartan 50 mg tablet 50 mg PO HS 01/12/20 07/05/25 History simvastatin 40 mg tablet 40 mg PO HS 01/12/20 07/05/25 History Patient History Medical History Hyperlipidemia Colostomy in place Surgical History History of ankle surgery left with hardware History of colonoscopy History of tooth extraction H/O exploratory laparotomy (04/18/23) Exploratory Laparoscopy, Washout and Drain insertion(Not Applicable) - Radha Aguilar DO History of arthroplasty of right ankle Family History Mother Breast cancer Grandmother (Maternal) Myocardial infarction Denies family history of Ovarian cancer Prostate cancer Colorectal cancer Social History Smoking Status: Never smoker Tobacco Type: Smokeless Tobacco (Dip or Chew) Second Hand Exposure: No; Do You Dip or Chew Tobacco: Yes (chews "all day everyday"); Hx Alcohol Use: No Hx Substance Use: No Preferred Language: Yoruba Communication Ability: Effective Visual Impairment: No Limitations Hearing Ability: Normal Guide Visitor Required: No Beliefs That Will Affect Care: None Current Living Situation: Spouse Current Living Situation Comment: home with Feels Safe at Home: Yes Assistive Devices: Glasses Review of Systems Review of Systems: per hpi Physical Exam Physical Exam: Physical Exam: AOx3. Mood affect appear normal. All questions appropriately. HEENT: Sclerae are anicteric. Pupils are equal and reactive to light and accommodation. Extraocular movements were intact. Neuro: Cranial nerves intact Lungs: Lungs are clear to auscultation bilaterally. There are no rales wheezes or rhonchi. Normal respiratory effort without use of accessory muscles. Cardiac: The rhythm was regular. S1 and S2 were normal. There are no murmurs on examination. The PMI was not markedly displaced on palpation. Extremities: Patient has bilateral radial pulses that are equal in intensity. There is no evidence cyanosis or clubbing. There was no evidence of significant peripheral edema bilaterally. Skin: There are no rashes noted on examination today. Results & Data Vital Signs (Past 12 Hours) Vital Signs Temp Pulse Pulse Resp BP Pulse Ox O2 Del Method 07/06/25 08:18 36.8 C 79 18 120/78 94 Room Air 07/06/25 07:16 76 07/06/25 04:08 36.4 C L 75 18 103/89 94 Room Air 07/06/25 00:49 90 07/06/25 00:47 106 H 07/05/25 23:27 36.8 C 93 H 16 116/70 95 Room Air Diagnostic Findings Exercise echocardiogram 07/06/2025: Patient exercised for 9 minutes. No symptoms. No evidence of ischemia. Echocardiogram 07/06/2025: Normal LV systolic function with ejection fraction of 50 to 55%. Normal wall motion. Mild aortic root dilation. Chest CTA did not demonstrate any evidence of pulmonary embolus. No other abnormalities noted. PG Care Time/CCT Total # of Minutes Spent Total Time Spent with Patient: Total time spent is greater than 50% in coordination of care (as documented) at patient's floor/unit and/or counseling patient: [place] [address] IN/OBS CONSULT LVL 5,80M Patient Type New Diagnoses Chest pain R07.9
--- NOTE | 2025-07-06 12:12 | XCELERA ---
[id number] \\[id number]
--- NOTE | 2025-07-06 12:15 | XCELERA ---
[id number]
--- NOTE | 2025-07-06 12:58 | Electrocardiogram Report ---
Test Reason : Blood Pressure : */* mmHG Vent. Rate : 103 BPM Atrial Rate : 103 BPM P-R Int : 166 ms QRS Dur : 88 ms QT Int : 348 ms P-R-T Axes : 47 -35 32 degrees QTcB Int : 455 ms Sinus tachycardia Left axis deviation Abnormal ECG When compared with ECG of 05-Jul-2025 14:50, (unconfirmed) No significant change was found Confirmed by Zechariah Ricci ([id number]) on 07/06/2025 12:57:50 PM Referred By: REFERRED SELF Confirmed By: Zechariah Ricci
--- NOTE | 2025-07-06 13:01 | Electrocardiogram Report ---
Test Reason : Blood Pressure : */* mmHG Vent. Rate : 116 BPM Atrial Rate : 116 BPM P-R Int : 178 ms QRS Dur : 86 ms QT Int : 318 ms P-R-T Axes : 57 -25 28 degrees QTcB Int : 442 ms Sinus tachycardia Poor R wave progression, consider anterior UT vs. lead placement vs. LVH Abnormal ECG When compared with ECG of 20-Apr-2023 07:46, Vent. rate has increased by 39 bpm Confirmed by Zechariah Ricci ([id number]) on 07/06/2025 1:01:23 PM Referred By: REFERRED SELF Confirmed By: Zechariah Ricci
--- NOTE | 2025-07-06 13:18 | Discharge Summary ---
Discharge Summary Date of Service July 06, 2025 Principal Dx & Hospital Course #1 = Principal Diagnosis (1) Chest pain: -trend troponin -asa, statin, metoprolol -echo -stress test -cardiology consult appreciated -stress echo negative -patient cleared for discharge (2) Hyperlipidemia: -simvastatin (3) Hypertension: -losartan Plan -Heparin SQ for DVT px Admission HPI Per Admitting Provider Pt is a 50 y/o male with pmh of HTN, HLD who presents with chest pain that radiates across his chest and up his neck. 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 He denies any SOB or palpitations. In the ER his EKG showed no ST-T changes and his troponin were WNL. He had a CTA of the chest which was negative for PE. Pt is being admitted for further evaluation and treatment of his chest pain including echo, stress test and cardiology consult in the am. Discharge Exam GENERAL APPEARANCE NAD, activity normal for age, well developed/ well nourished, no cyanosis, pallor, or diaphoresis. EYES lids/conjunctiva normal. EARS/NOSE/THROAT Mucous membranes moist, nares normal, lips/teeth normal uvula midline without oral pharyngeal erythema, exudate or swelling TMs normal bilaterally. No lymphangitis/lymphedema. HEAD/NECK normocephalic atraumatic, no facial trauma, neck is supple. RESPIRATORY respiratory effort normal, speaks in full sentences, no tripod position, no accessory muscle use. Lungs clear to auscultation without rhonchi, wheezes, rales CARDIAC Regular rate and rhythm, no edema. ABDOMINAL Soft, ND/NT. No evidence of fluid wave. No pulsatile masses on exam, rebound tenderness, Doss sign or pain over Mcburney's point. MUSCLES/EXTREMITIES No abnormal range of motion, no swelling. SKIN Warm, pink and dry. No rashes, dermatoses, petechiae or lesions. NEUROLOGICAL Speech is clear and appropriate. Normal level of consciousness. Gait and coordination are normal. 5/5 strength in all extremities. PSYCH Normal mood and affect. Judgement/competence is appropriate Discharge Plan Discharge Items Patient Disposition: Home - Self-Care Reason For Visit: CHEST PAIN Discharge Diagnosis: Chest pain Condition on Discharge: Fair Activity: Resume your previous activity Non-emergency contact: Primary Care Provider Call non-emergency contact if: you have any medication questions Follow-up/Referrals: Gala Sorensen MD [Primary Care Provider] - Diet: Regular Addtl Attending Provider Instructions: Follow up with PMD in 2 weeks Pending Studies at Discharge: No Stand-Alone Forms: My [facility], Smoking Cessation Medications and DC Order Prescriptions: Continued losartan 50 mg tablet 50 mg PO HS Hold Instructions: Resume on 05/11/23. resume per [facility] discharge instructions simvastatin 40 mg tablet 40 mg PO HS Hold Instructions: Resume on 05/11/23. resume per [facility] discharge instructions Discharge Orders: Discharge Order (Routine); Ordered 07/06/25 Ordered By: Drake Blackwell Admission Data Admit Date/Time: 07/05/25 18:14 Attending Provider: Drake Blackwell Admit Provider: Drake Blackwell Primary Care Provider: Gala Sorensen Other Providers: Eliezer Swenson; Zechariah Ricci Hospital Stay Data Consultations 07/05/25 18:07 ED Decision to Admit Stat 07/05/25 18:11 Consult Cardiology Routine Diagnostic Imagining Performed 07/05/25 15:53 CT angio chest PE protocol Stat Pending Results Patient Have Any Pending Studies at Discharge: No Discharge Instructions Given to Patient (Per Discharging Provider) Follow up with PMD in 2 weeks Total Time Total Time Spent Total Time Spent (In Minutes): 50 Coding Level of Care Code 57387 INP/OBS DISCH >30 MIN Diagnoses Chest pain R07.9 Hyperlipidemia E78.5 Hypertension I10 Hypertension type: unspecified
== END 2025-07-06 14:41 | disposition home or self-care (01) ==
LOC: ED 14:42 → EDINP 14:42 → 2N 20:01